=== PATIENT | male | born 1940 | race Caucasian/White ===

== ENCOUNTER 2023-10-16 15:19 | Inpatient (IN) | payer MEDICARE, SELFPAY ==
[2023-10-16] VITALS (14 sets, daily range): BP systolic 131–182; BP diastolic 69–92; PULSE 62–96; RESP 14–25; TEMP 36.1–36.8; O2SAT 95–98; BMI 26.7; BMI 24.3
--- NOTE | 2023-10-16 15:32 | ED.VIS.GI ---
HPI HPI - GI History of Present Illness Chief Complaint: Abd Pain Narrative Narrative: 83-year-old male presents via EMS with abdominal pain and distention that has had over the last 2 hours. He states he feels like he has gas, but is unable to pass it. He denies any nausea or vomiting, no fevers or chills. His daughter is at the bedside who states that ever since his about a year ago, they have noticed that they thought his abdomen was more distended. 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 He became very diaphoretic. EMS was called because of his abdominal pain and bloating. No exacerbating or alleviating factors. PFSH PFS Medical History Mitral valve prolapse Contact with and (suspected) exposure to other viral communicable diseases URI (upper respiratory infection) Home Medications ?Medication ?Instructions ?Recorded ?Last Taken ?Type amoxicillin 875 mg-potassium 1 tab PO Q12H #14 tabs 09/04/23 Unknown Rx clavulanate 125 mg tablet dextromethorphan-guaifenesin 20 5 ml PO Q6H PRN cough #473 mL 09/04/23 Unknown Rx mg-400 mg/5 mL oral liquid Allergy/AdvReac Type Severity Reaction Status Date / Time No Known Allergies Allergy Verified 09/04/23 13:40 Family History Other Cancer Heart disease Surgical History H/O hernia repair Hx of tonsillectomy Social History Smoking Status: Never smoker alcohol intake: never ROS ROS ED ROS Narrative Constitutional: No fever, no chills. HEENT: No sore throat. No neck pain. No loss of vision. No rhinorrhea. Cardiovascular: No chest pain. No palpitations. No pedal edema. Respiratory: No cough, no shortness of breath. Abdominal: Diffuse abdominal pain and distention. No nausea. No vomiting. Genitourinary: No dysuria. No hematuria. Musculoskeletal: No myalgias. No arthralgias. Neurologic: No headaches. No dizziness. No lightheadedness. Skin: No rash. No change in color. Psychiatric: No depression. No anxiety. EXAM Physical Exam Narrative Exam Narrative: Afebrile. Vital signs noted. HEENT: Normocephalic. Atraumatic. PERRL, EOMI. Neck soft and supple. No point tenderness or step off. Cardiovascular: Regular rate and rhythm. No murmurs, rubs, or gallops appreciated. Respiratory: No tachypnea. Lungs clear to auscultation bilaterally. Gastrointestinal: Abdomen soft, nontender, with positive bowel sounds. Mild distention. No rebound or guarding. Neurological: Awake. Alert. Nonfocal, nonlateralizing. Skin: No rash. Normal color. No pallor. Musculoskeletal: No pedal edema. Full range of motion extremities. Const Vital Signs: 10/16/23 15:20 10/16/23 17:20 10/16/23 18:18 Temperature 97.5 F L 97.7 F L Temperature Source Temporal Oral Pulse Rate 62 88 93 Respiratory Rate 14 18 25 H Blood Pressure 152/84 H 159/83 H 173/83 H Blood Pressure Mean 106 108 113 Blood Pressure Source Monitor Blood Pressure Position Semi-Fowlers Pulse Ox 96 98 96 Oxygen Delivery Method Room Air Room Air 10/16/23 18:33 Temperature 97 F L Temperature Source Pulse Rate 90 Respiratory Rate 15 Blood Pressure 182/92 H Blood Pressure Mean 122 Blood Pressure Source Blood Pressure Position Pulse Ox 97 Oxygen Delivery Method MDM MDM MDM Narrative Medical decision making narrative: Differential diagnosis includes but not limited to fecal impaction/constipation versus partial small bowel obstruction versus colonic mass. States he has been having normal bowel movements on a regular basis. His onset was after eating and approximately 2 hours ago today. Comprehensive workup was pursued. I do feel CT imaging is indicated to help rule out obstruction. I will obtain basic laboratory work to rule out dehydration. I reviewed his laboratory work, and he has normal white count of 6.7, hemoglobin 14.9, hematocrit 45.9, platelet count is normal at 321. Electrolyte panel is grossly unremarkable with a normal sodium of 141 potassium 4.1, glucose elevated 127 but normal anion gap of 6. LFTs are grossly unremarkable. Lipase normal at 22. He was administered morphine and ondansetron for analgesia and for nausea. Urinalysis is negative for infection. Of significance is a CT of the abdomen and pelvis. I did receive a call from the radiologist to comments on a small bowel volvulus with distal ileus. There is twisting of the middle third of the small intestines around the superior mesenteric gastric pedicle. I then discussed patient with Dr. Thompson Interiano, who requested an NG tube be placed, and he will take him to the OR emergently. Disposition is admit to the OR in stable condition. History & Record Review Discussion w/independent historian: Patient Lab Data Attestation: I reviewed the patient's lab results. Labs: Laboratory Results - last 24 hr 10/16/23 10/16/23 15:31 16:45 WBC 6.7 RBC 5.01 Hgb 14.9 Hct 45.9 MCV 91.6 MCH 29.7 MCHC 32.5 RDW Std Deviation 45.6 H RDW Coeff of [place] 13.4 Plt Count 321 MPV 8.6 Immature Gran % (Auto) 0.300 Neut % (Auto) 46.3 L Lymph % (Auto) 43.0 H Emanuel % (Auto) 6.8 Eos % (Auto) 2.7 Baso % (Auto) 0.9 Absolute Neuts (auto) 3.1 Absolute Lymphs (auto) 2.90 Nucleated RBC % 0 Sodium 141 Potassium 4.1 Chloride 105 Carbon Dioxide 30.0 Anion Gap 6 BUN 9 Creatinine 0.95 Estim Creat Clear Calc 57.02 Est GFR (MDRD) Af Amer 97 Est GFR (MDRD) Non-Af 80 BUN/Creatinine Ratio 9.4 L Glucose 127 H Calcium 9.3 Total Bilirubin 0.60 AST 24 ALT 25 Alkaline Phosphatase 99 Total Protein 8.1 Albumin 3.7 Globulin 4.4 H Albumin/Globulin Ratio 0.8 L Lipase 22 Urine Color Yellow Urine Clarity Sl. Cloudy Urine pH 8.0 Ur Specific [place] 1.010 Urine Protein 15 H Urine Glucose (UA) Normal Urine Ketones Negative Urine Occult Blood Negative Urine Nitrite Negative Urine Bilirubin Negative Urine Urobilinogen Normal Ur Leukocyte Esterase Negative Urine RBC 0 SEEN Urine WBC 0 SEEN Ur Squamous Epith Cells 0 SEEN Urine Bacteria 0 SEEN Urine Mucus 0 SEEN Radiography Diagnostic Testing: Clinical Impression(s) from Imaging Studies Abdomen/Pelvis CT 10/16/23 16:22 IMPRESSION: Small bowel volvulus 1. Small bowel volvulus is present with abnormal twisting of the middle one third ileum around the superior mesenteric vascular pedicle in the central abdomen which significantly edematous and engorged mesentery, reactive subcentimeter lymphadenopathy, as well as a small reactive amount of ascites. The loops proximal to the focal narrowing/site of volvulus are mildly to moderately fluid distended. A secondary distal ileal ileus is also present with fluid distention. The ileocecal junction is spared. No free air is present. 2. No visualized bowel masses. 3. Mild edema and hyperenhancement of the jejunal loops are present with mild fluid distention due to ileus. 4. No visualized superior mesenteric artery or vein thrombus or complete occlusion, although there is obvious atherosclerotic plaque and some narrowing seen in the superior mesenteric artery. 5. No demonstrated portal venous gas or pneumatosis. Electronically Signed: Que Apodaca MD at 17:40 EDT , ADDENDUM: 10/16/23 [id number] IMPRESSION: Small bowel volvulus 1. Small bowel volvulus is present with abnormal twisting of the middle one third ileum around the superior mesenteric vascular pedicle in the central abdomen which significantly edematous and engorged mesentery, reactive subcentimeter lymphadenopathy, as well as a small reactive amount of ascites. The loops proximal to the focal narrowing/site of volvulus are mildly to moderately fluid distended. A secondary distal ileal ileus is also present with fluid distention. The ileocecal junction is spared. No free air is present. 2. No visualized bowel masses. 3. Mild edema and hyperenhancement of the jejunal loops are present with mild fluid distention due to ileus. 4. No visualized superior mesenteric artery or vein thrombus or complete occlusion, although there is obvious atherosclerotic plaque and some narrowing seen in the superior mesenteric artery. 5. No demonstrated portal venous gas or pneumatosis. N.B. : The above Results were Read Back by Que Apodaca MD to Anoop Pitts MD, and understanding confirmed on 10/16/2023 17:52:49 (ET). Electronically Signed: Que Apodaca MD at 17:40 EDT , Discharge Plan Triage Chief Complaint: Abd Pain ED Provider: Anoop Pitts Dx/Rx/DC Orders Primary Care Provider: Ritchie Corona
[2023-10-16 15:44] LABS: Absolute Neutrophil Count 3.1 X10^3/uL (2.0-7.7); Basophil# 0.06 X10^3/uL; Basophil% 0.9 % (0-1); Eosinophil# 0.18 X10^3/uL; Eosinophils% 2.7 % (0-5); Hematocrit 45.9 % (40-54); Hemoglobin 14.9 g/dL (13.0-16.5); Mean Corp Hgb Conc 32.5 g/dL (32-36); Mean Corpuscular Hgb 29.7 pg (27.0-32.0); Mean Corpuscular Volume 91.6 fL (80-94); Mean Platelet Vol. 8.6 fl (6.2-12.0); Monocyte# 0.46 X10^3/uL; Monocyte% 6.8 % (0-10); NRBC Flagged by Analyzer 0 % (0-5); Neutrophil # 3.12 X10^3/uL (2.7-7.7); Neutrophil % 46.3 % (47-70); Platelet Count 321 K/mm3 (150-450); RBC Distribution Width CV 13.4 % (11.6-14.6); RBC Distribution Width SD 45.6 fl (35.1-43.9); Red Blood Count 5.01 M/mm3 (4.6-6.2); White Blood Count 6.7 K/mm3 (4.4-11.0)
[2023-10-16 15:57] LABS: ALB/GLOB Ratio 0.8 RATIO (0.9-2.4); AST(SGOT) 24 U/L (15-37); Alanine Aminotransfer ALT/SGPT 25 U/L (16-61); Albumin, Serum 3.7 g/dL (3.2-5.0); Alkaline Phosphatase 99 U/L (45-117); Anion Gap 6 (5-15); BUN 9 mg/dL (7-18); BUN/Creat Ratio 9.4 RATIO (10-20); Calcium,Total 9.3 mg/dL (8.5-10.1); Chloride 105 mmol/L (98-107); Creatinine, Serum 0.95 mg/dL (0.70-1.30); EST Glomerular Filtration Rate 80 mL/min (>60); Est Glom Filt Rate - Afr Amer 97 mL/min (>60); Estimated Creatinine Clearance 57.02 ml/min; Globulin 4.4 g/dL (2.2-4.2); Glucose 127 mg/dL (74-106); Lipase 22 U/L (13-75); Potassium 4.1 mmol/L (3.5-5.1); Protein, Total 8.1 g/dL (6.4-8.2); Sodium Level 141 mmol/L (136-145)
[2023-10-16] MEDS: 0.9% Normal Saline (1000mL) 1,000 ML 999 ML IV (16:02)
[2023-10-16] MEDS: Ondansetron 4 MG/2 ML Vial IV (16:02)
[2023-10-16] MEDS: Morphine 4 MG/ML Syringe IV (16:02)
--- NOTE | 2023-10-16 16:22 | CT_ITS ---
We are attempting to reach an attending provider to discuss findings. An addendum with communication details will be sent when the communication is complete. STUDY: CT ABDOMEN AND PELVIS WITH CONTRAST REASON FOR EXAM: Male, 83 years old. RADIATION DOSAGE (If Supplied By Facility): CTDIvol = ( 11.93 ) mGy, DLP = ( 586.96 ) mGycm TECHNIQUE: Transaxial images were obtained from the dome of the diaphragm to the symphysis pubis without oral contrast. ml of 100mL Isovue-300 contrast was administered. Sagittal and coronal images were reconstructed. Individualized dose optimization techniques were used for this CT. COMPARISON: None. 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 Post pneumonic fibrotic scarring is present in the left lower lobe with pleural thickening. Small bowel volvulus is present with abnormal twisting of the middle one third ileum around the superior mesenteric vascular pedicle in the central abdomen which significantly edematous and engorged mesentery, reactive subcentimeter lymphadenopathy, as well as a small reactive amount of ascites. The loops proximal to the focal narrowing/site of volvulus are mildly to moderately fluid distended. A secondary distal ileal ileus is also present with fluid distention. The ileocecal junction is spared. No free air is present. No visualized bowel masses. Mild edema and hyperenhancement of the jejunal loops are present with mild fluid distention due to ileus. No visualized superior mesenteric artery or vein thrombus or complete occlusion, although there is obvious atherosclerotic plaque and some narrowing seen in the superior mesenteric artery. No demonstrated portal venous gas or pneumatosis. Small to moderate-sized left inguinal fat-containing hernia. Mild to moderate enlargement of prostate gland with the apex herniating into the base of the bladder. Diffuse heterogeneity of the prostate gland. Normal liver. Normal gallbladder and extrahepatic biliary system. Normal spleen. Normal pancreas. Normal bilateral adrenal glands. There is mild cortical atrophy of the right kidney, consistent with chronic medical renal disease. Normal left kidney. Normal visualized stomach. Normal colon. The appendix is visualized and appears normal. There is diffuse atherosclerotic calcification of the abdominal aorta, without a demonstrated aneurysm. Normal inferior vena cava. Normal retroperitoneum. Normal urinary bladder. Normal abdominal wall. There are diffuse degenerative changes of the visualized lumbar spine. CT/Abdomen/Pelvis W IV Cont ONLY IMPRESSION: Small bowel volvulus 1. Small bowel volvulus is present with abnormal twisting of the middle one third ileum around the superior mesenteric vascular pedicle in the central abdomen which significantly edematous and engorged mesentery, reactive subcentimeter lymphadenopathy, as well as a small reactive amount of ascites. The loops proximal to the focal narrowing/site of volvulus are mildly to moderately fluid distended. A secondary distal ileal ileus is also present with fluid distention. The ileocecal junction is spared. No free air is present. 2. No visualized bowel masses. 3. Mild edema and hyperenhancement of the jejunal loops are present with mild fluid distention due to ileus. 4. No visualized superior mesenteric artery or vein thrombus or complete occlusion, although there is obvious atherosclerotic plaque and some narrowing seen in the superior mesenteric artery. 5. No demonstrated portal venous gas or pneumatosis. Electronically Signed: Que Apodaca MD at 17:40 EDT ,
[2023-10-16 16:54] LABS: Bacteria 0 SEEN /hpf (None Seen); Mucous, Urine 0 SEEN /hpf (<or=2+); Red Blood Cells-Urine 0 SEEN /hpf (0-5); Squamous Epithelial Cells - UA 0 SEEN /hpf (0-5); White Blood Cells 0 SEEN /hpf (0-5)
[2023-10-16 17:03] LABS: Color, Urine Yellow (Yellow); Glucose, Dipstick Normal (Normal); Ketone-Dipstick Negative (Negative); Leukocyte Esterase-Dipstick Negative /ul (Negative); Nitrite-Dipstick Negative (Negative); Occult Blood-Urine Negative /ul (Negative); Protein-Dipstick 15 mg/dl (Negative); Urine Bilirubin Dipstick Negative (Negative); Urine Clarity Sl. Cloudy (Clear); Urine Urobilinogen Normal (Normal)
--- NOTE | 2023-10-16 17:58 | EKG12_ITS ---
Test Reason : PRE-OP Blood Pressure : / mmHG Vent. Rate : 083 BPM Atrial Rate : 083 BPM P-R Int : 266 ms QRS Dur : 102 ms QT Int : 424 ms P-R-T Axes : 075 -57 068 degrees QTc Int : 498 ms Sinus rhythm with 1st degree A-V block Incomplete right bundle branch block Left anterior fascicular block Cannot rule out Anterior infarct , age undetermined Abnormal ECG Confirmed by ARPIT ANTUNEZ, NORMA ([id number]), rewrite editor CINDI BURDEN ([id number]) on 10/20/2023 8:44:46 AM Referred By: Thompson Interiano Confirmed By:DAYSI MUNSON MD
--- NOTE | 2023-10-16 18:00 | NURSING ---
NO OLD EKGS
--- NOTE | 2023-10-16 18:15 | NURSING ---
DR CONTRERAS IN ROOM
--- NOTE | 2023-10-16 18:27 | NURSING ---
SURGERY BEN SMALL BOWEL VOLVULUS
--- NOTE | 2023-10-16 18:33 | PCM.HP.STD ---
HPI - General HPI Narrative PELON PAREDES, is a 83 M who presents with abdominal pain that started a few hours before presentation. Patient reports that he does not have nausea or vomiting currently. His abdominal pain is in the left side of his abdomen. Patient has never had surgery inside of his abdomen. He has never had a bowel obstruction in the past. [facility] Medical History Mitral valve prolapse Contact with and (suspected) exposure to other viral communicable diseases URI (upper respiratory infection) Home Medications ?Medication ?Instructions ?Recorded ?Last Taken ?Type amoxicillin 875 mg-potassium 1 tab PO Q12H #14 tabs 09/04/23 Unknown Rx clavulanate 125 mg tablet dextromethorphan-guaifenesin 20 5 ml PO Q6H PRN cough #473 mL 09/04/23 Unknown Rx mg-400 mg/5 mL oral liquid Allergy/AdvReac Type Severity Reaction Status Date / Time No Known Allergies Allergy Verified 09/04/23 13:40 Family History Other Cancer Heart disease Surgical History H/O hernia repair Hx of tonsillectomy Social History Smoking Status: Never smoker alcohol intake: never ROS Constitutional Constitutional: Reports anorexia; Denies chills, fatigue or fever(s) Eyes Eyes: Denies blurry vision ENT HEENT: Denies abnormal hearing Cardiovascular Cardiovascular: Denies chest pain Respiratory/Chest Respiratory/Chest: Denies cough or dyspnea Gastrointestinal Gastrointestinal: Reports abdominal pain; Denies nausea or vomiting Genitourinary Genitourinary: Denies change in urinary stream Musculoskeletal Musculoskeletal: Denies abnormal gait Integumentary Integumentary: Denies jaundice or new lesions Neurologic Neurologic: Denies abnormal gait Psychiatric Psychiatric: Denies anxiety Endocrine Endocrinology: Denies flushing Vital Signs Vital Signs Vital Signs: 10/16/23 15:20 10/16/23 17:20 10/16/23 18:18 Temperature 97.5 F L 97.7 F L Temperature Source Temporal Oral Pulse Rate 62 88 93 Respiratory Rate 14 18 25 H Blood Pressure 152/84 H 159/83 H 173/83 H Blood Pressure Mean 106 108 113 Blood Pressure Source Monitor Blood Pressure Position Semi-Fowlers Pulse Ox 96 98 96 Oxygen Delivery Method Room Air Room Air Weight Weight: 170 lb 10.205 oz Body Mass Index (BMI) 26.7 Physical Exam Const oriented x3 and no apparent distress Resp normal respiratory effort Cardio regular rate and regular rhythm GI soft to palpation Inspection: abdominal distention Palpation: tender LUQ and RUQ Extremity normal to inspection Results Lab / Micro Data 10/16/23 15:31 10/16/23 15:31 Labs: Laboratory Results - last 24 hr 10/16/23 15:31: WBC 6.7, RBC 5.01, Hgb 14.9, Hct 45.9, MCV 91.6, MCH 29.7, MCHC 32.5, RDW Std Deviation 45.6 H, RDW Coeff of Chio 13.4, Plt Count 321, MPV 8.6, Immature Gran % (Auto) 0.300, Neut % (Auto) 46.3 L, Lymph % (Auto) 43.0 H, [place] % (Auto) 6.8, Eos % (Auto) 2.7, Baso % (Auto) 0.9, Absolute Neuts (auto) 3.1, Absolute Lymphs (auto) 2.90, Nucleated RBC % 0, Sodium 141, Potassium 4.1, Chloride 105, Carbon Dioxide 30.0, Anion Gap 6, BUN 9, Creatinine 0.95, Estim Creat Clear Calc 57.02, Est GFR (MDRD) Af Amer 97, Est GFR (MDRD) Non-Af 80, BUN/Creatinine Ratio 9.4 L, Glucose 127 H, Calcium 9.3, Total Bilirubin 0.60, AST 24, ALT 25, Alkaline Phosphatase 99, Total Protein 8.1, Albumin 3.7, Globulin 4.4 H, Albumin/Globulin Ratio 0.8 L, Lipase 22 10/16/23 16:45: Urine Color Yellow, Urine Clarity Sl. Cloudy, Urine pH 8.0, Ur Specific [place] 1.010, Urine Protein 15 H, Urine Glucose (UA) Normal, Urine Ketones Negative, Urine Occult Blood Negative, Urine Nitrite Negative, Urine Bilirubin Negative, Urine Urobilinogen Normal, Ur Leukocyte Esterase Negative, Urine RBC 0 SEEN, Urine WBC 0 SEEN, Ur Squamous Epith Cells 0 SEEN, Urine Bacteria 0 SEEN, Urine Mucus 0 SEEN Imaging Radiology Impression Abdomen/Pelvis CT 10/16/23 16:22 IMPRESSION: Small bowel volvulus 1. Small bowel volvulus is present with abnormal twisting of the middle one third ileum around the superior mesenteric vascular pedicle in the central abdomen which significantly edematous and engorged mesentery, reactive subcentimeter lymphadenopathy, as well as a small reactive amount of ascites. The loops proximal to the focal narrowing/site of volvulus are mildly to moderately fluid distended. A secondary distal ileal ileus is also present with fluid distention. The ileocecal junction is spared. No free air is present. 2. No visualized bowel masses. 3. Mild edema and hyperenhancement of the jejunal loops are present with mild fluid distention due to ileus. 4. No visualized superior mesenteric artery or vein thrombus or complete occlusion, although there is obvious atherosclerotic plaque and some narrowing seen in the superior mesenteric artery. 5. No demonstrated portal venous gas or pneumatosis. Electronically Signed: Que Apodaca MD at 17:40 EDT Reading Location ID and State: [facility] / [place] , Service support , ADDENDUM: 10/16/23 [id number] IMPRESSION: Small bowel volvulus 1. Small bowel volvulus is present with abnormal twisting of the middle one third ileum around the superior mesenteric vascular pedicle in the central abdomen which significantly edematous and engorged mesentery, reactive subcentimeter lymphadenopathy, as well as a small reactive amount of ascites. The loops proximal to the focal narrowing/site of volvulus are mildly to moderately fluid distended. A secondary distal ileal ileus is also present with fluid distention. The ileocecal junction is spared. No free air is present. 2. No visualized bowel masses. 3. Mild edema and hyperenhancement of the jejunal loops are present with mild fluid distention due to ileus. 4. No visualized superior mesenteric artery or vein thrombus or complete occlusion, although there is obvious atherosclerotic plaque and some narrowing seen in the superior mesenteric artery. 5. No demonstrated portal venous gas or pneumatosis. N.B. : The above Results were Read Back by Que Apodaca MD to Anoop Pitts MD, and understanding confirmed on 10/16/2023 17:52:49 (ET). Electronically Signed: Que Apodaca MD at 17:40 EDT , Assessment & Plan Assessment/Plan (1) Small bowel volvulus: PLAN: The patient has a small bowel volvulus on CT scan. It appears that the small bowel was wrapped around the SMA. CT scan also reveals small bowel obstruction due to this volvulus. NG has been placed by the emergency room. I discussed taking him for surgery. I discussed exploratory laparoscopy with attempted reduction of volvulus. I also discussed possible bowel resection if there is ischemia. I also discussed converting to open as well. I discussed the risks including but not limited to bleeding, infection, injury to underlying organs such as the bowel or bladder. Patient understands the risks and is willing to proceed. Thompson Interiano MD Pager: [facility] [address] [place] [address], [address] [place] [address] Office:
--- NOTE | 2023-10-16 18:38 | RAD_ITS ---
STUDY: X-RAY -ABDOMEN. REASON FOR EXAM: Male, 83 years old. ng tube placement -- KUB with both diaphragms for NG/OG Verification TECHNIQUE: Single AP view of the abdomen. COMPARISON: CT of abdomen and pelvis dated October 16, 2023 FINDINGS: Collimated view of the chest and upper abdomen only. The pelvis is not included. Normal visualized lung bases. There is an unremarkable bowel gas pattern. The new feeding tube is in the proximal body of the stomach in the left upper quadrant. Normal soft tissue structures. There are diffuse degenerative changes of the visualized lumbar spine. RAD/CXR for Line Placement IMPRESSION: 1. The new feeding tube is in the proximal body of the stomach in the left upper quadrant. Electronically Signed: Que Apodaca MD at 19:48 EDT ,
--- NOTE | 2023-10-16 18:40 | ED.RN ---
NO CONSENT FILLED OUT PER DR CONTRERAS. PT AWARE, PHYSICIAN AWARE
--- NOTE | 2023-10-16 19:27 | PCM.PRE.AN2 ---
ASA Classification* ASA Classification ASA Classification: 2 and E Assessment & Plan Anesthesia* Anesthesia Assessment Anesthesia Assessment: Discussed sedation and/or anesthesia options, risks, benefits, and alternatives with patient/parents/legal guardian/POA. Questions invited. The patient/parents/legal guardian/POA seems to understand and agrees to proceed with anesthesia plan. Reviewed the physical assessment, medical history, allergy history and patient home medications list prior to surgery/procedure/anesthetic and documented any changes. Performed airway and anesthesia risk assessments. Anesthesia Type Anesthesia Type: General (see written pre anesthesia record for full assessment) Anesthesia Focused Assessment* Temperature: 97 F Pulse Rate: 90 Blood Pressure: 159/83 Respiratory Rate: 18 Pulse Ox: 98 Airway Assessment Mouth opens: >3 cm Mallampati Score: II Focused Labs Anesthesia Preop lab: CBC WBC 6.7 K/mm3 (4.4-11.0) 10/16/23 15:31 RBC 5.01 M/mm3 (4.6-6.2) 10/16/23 15:31 Hgb 14.9 g/dL (13.0-16.5) 10/16/23 15:31 Hct 45.9 % (40-54) 10/16/23 15:31 Plt Count 321 K/mm3 (150-450) 10/16/23 15:31 CHEMISTRY Potassium 4.1 mmol/L (3.5-5.1) 10/16/23 15:31 Sodium 141 mmol/L (136-145) 10/16/23 15:31 BUN 9 mg/dL (7-18) 10/16/23 15:31 Creatinine 0.95 mg/dL (0.70-1.30) 10/16/23 15:31 Glucose 127 mg/dL (74-106) H 10/16/23 15:31 COAG Pre-Assessment Diagnosis/Proposed Procedure Planned Operative Procedure(s): exp lap Anesthesia History Anesthesia History - records management specialist: Anesthesia History - records management specialist Hx Hospitalization Any Problems With Anesthesia No 10/16/23 18:18 Cholinesterase deficiency No 10/16/23 18:18 You/Your Family Experience No 10/16/23 18:18 fever (hyperthermia) with Relationship Recent Exposure to Contagious No 10/16/23 18:18 Disease Does patient have nerve No 10/16/23 18:18 stimulator Patient instructed to have No 10/16/23 18:18 device shut off --Does patient have Pacemaker or ICD? When Was Last Pacemaker Check QUESTION #4 FULL TEXT: You/Your Family Experience fever (hyperthermia) with Anesthesia Last Oral Intake Last Oral intake: Last Oral Intake NPO since 14:30 10/16/23 18:18 Meds taken in AM with sips of water? Meds patient instructed to take am of surgery PONV PONV - records management specialist: PONV - records management specialist Female HX of Motion Sickness HX of N/V After Surgery Non-Smoker Duration of Surgery greater than 60 minutes Number of Risk Factors PONV Score Height & Weight Height & Weight: Anesthesia: Height & Weight Height 5 ft 7 in 10/16/23 18:18 Weight: 77.4 kg 10/16/23 18:18 Body Mass Index (BMI) 26.7 10/16/23 18:18 Respiratory Assessment Respiratory Assessment - records management specialist: Respiratory Tract Infection Hx - records management specialist Hx Respiratory Tract Infection No 10/16/23 18:18 STOP Sleep Apnea STOP Sleep Apnea - records management specialist: STOP Sleep Apnea - records management specialist Hx Hypertension No 10/16/23 18:18 Hx Sleep Apnea No 10/16/23 18:18 CPAP BIPAP Do you snore loudly (louder Yes 10/16/23 18:18 than talking or can be heard Do you often feel tired/ No 10/16/23 18:18 fatigued/ sleepy during daytime? Has anyone observed you stop No 10/16/23 18:18 breathing during sleep? STOP Results Negative 10/16/23 18:18 QUESTION #5 FULL TEXT : Do you snore loudly (louder than talking or can be heard through closed doors)? 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 Specify any problems Hx of Preganancy in last 3 Months Nurse Filling Out Transfusion & Questions: Date: Time: Patient unable to answer at this time (ie. confused, unrespo /Reproduction History /Reproductive History - records management specialist: /Reproductive Hx- records management specialist Hx Now No 10/16/23 18:18 Gestational Age (in weeks): EDC: Hx Hx Para Hx Section SAB PFSH Medical History Mitral valve prolapse Contact with and (suspected) exposure to other viral communicable diseases URI (upper respiratory infection) Home Medications ?Medication ?Instructions ?Recorded ?Last Taken ?Type amoxicillin 875 mg-potassium 1 tab PO Q12H #14 tabs 09/04/23 Unknown Rx clavulanate 125 mg tablet dextromethorphan-guaifenesin 20 5 ml PO Q6H PRN cough #473 mL 09/04/23 Unknown Rx mg-400 mg/5 mL oral liquid Allergy/AdvReac Type Severity Reaction Status Date / Time No Known Allergies Allergy Verified 09/04/23 13:40 Family History Other Cancer Heart disease Surgical History H/O hernia repair Hx of tonsillectomy Social History Smoking Status: Never smoker alcohol intake: never Review of Systems (Anesthesia) ROS Narrative System reviewed and no additional complaints, except as documented.
[2023-10-16] MEDS: Bupivacaine 0.25% 30 ML Vial (20:11)
--- NOTE | 2023-10-16 20:27 | PCM.POST.ANE ---
Anesthesia: Postop Eval I Current Vital Signs Temperature: 98.2 F Pulse Rate: 96 Blood Pressure: 138/69 Respiratory Rate: 16 Pulse Ox: 95 Assessment Airway patent: Yes Spontaneous unlabored respirations: Yes nausea: No Vomiting: No Anesthesia Complication: No Fluid Hydration Crystalloid volume administer (ml): 1,000 Total IV fluid infused: 1,000 Progress Note Anesthesia document: Postop Eval 1 completed: Yes
--- NOTE | 2023-10-16 20:29 | PCM.POSTANE2 ---
Anesthesia Postop Eval I Sum Postop Eval Completion status Anesthesia document: Postop Eval 1 completed: Yes Anesthesia Postop Eval I Summary Anesthesia Postop Eval I Summary: Anesthesia Postop Eval I: Assessment Summary Airway patent Yes 10/16/23 20:27 Spontaneous unlabored Yes 10/16/23 20:27 respirations Mental status nausea No 10/16/23 20:27 Vomiting No 10/16/23 20:27 Anesthesia Postop Eval I: Fluid Summary Crystalloid volume administer 1,000 10/16/23 20:27 (ml) Colloids volume administered ( ml) Blood Product volume administered (ml) Total IV fluid infused 1,000 10/16/23 20:27 Anesthesia Postop Eval I: Summary Notes Anesthesia Complication No 10/16/23 20:27 Anesthesia Complication Comment: Post-operative progress note Anesthesia: Postop Eval II Evaluation Mental status: Awake Pain Level: 0 nausea: No Vomiting: No
--- NOTE | 2023-10-16 20:31 | PCM.OPRPT ---
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 A Lambert catheter was placed. The abdomen was prepped and draped in the usual sterile fashion. Midline incision was made superior to the umbilicus and deepened to the fascia which was elevated and incised. 12 mm port was placed into the abdomen is insufflated to 15 mmHg. Camera was placed into the abdomen. The patient was placed in Trendelenburg position and a 5 mm port was placed in the left lower quadrant as well as the suprapubic space. The abdomen was inspected. There appeared to be trace chylous ascites. There was a very small amount of actual ascites but the mesenteric border of the small bowel was all chylous. The cecum was identified and the terminal ileum was then grasped. It was collapsed. It was followed proximally until dilated bowel was found. There was no transition zone or mass or adhesion. I did not find an obvious volvulus. The mesentery appeared edematous and thick. The bowel was run once more from the distal ileum to the ligament of Treitz with no sign of obstruction. The small bowel seem to be draining well with minimal dilation. At this point there was nothing more to do surgically and the abdomen was allowed to desufflate and the ports were removed. The midline fascia was closed with [id number] 0 Vicryl suture. The incisions were injected with local anesthetic and closed with interrupted 4-0 Monocryl sutures. Steri-Strips and bandages were applied. Lambert and NG removed at the end of the case. Patient was taken to PACU in stable condition. Admit VTE Documentation VTE Mechan Device Prophylaxis: SCD's
[2023-10-16] MEDS: Lactated Ringers 1,000 ML 15 ML IV (20:58)
[2023-10-16] MEDS: 0.9% Normal Saline (1000mL) 1,000 ML 100 ML IV (21:51)
[2023-10-16] MEDS: 0.9% Saline Lock 10 ML Syringe IV (22:28)
[2023-10-16] MEDS: Ketorolac 15 MG/ML Vial IV (22:28)
[2023-10-17] MEDS: Acetaminophen 325 MG Tablet 650 MG PO ×2 (00:15→09:53)
[2023-10-17 00:45] VITALS: BP 121/68; PULSE 80; RESP 16; TEMP 36.6; O2SAT 96
[2023-10-17 03:08] VITALS: BP 132/77; PULSE 70; RESP 16; TEMP 36.6; O2SAT 98
--- NOTE | 2023-10-17 05:55 | RAD_ITS ---
STUDY: X-RAY - ABDOMEN/PELVIS REASON FOR EXAM: Male, 83 years old patient with small bowel obstruction (SBO). TECHNIQUE: Two AP supine views of the abdomen and pelvis. COMPARISON: CT of the abdomen and pelvis dated October 16, 2023. FINDINGS: Normal visualized lung bases. There is a large amount of bowel gas visible throughout the small and large bowel. There is no demonstrated free abdominal air. There is no obvious organomegaly, mass, dilated bowel or pathologic calcifications. There is contrast in urinary bladder probably secondary to recent enhanced CT. There are diffuse degenerative changes of the visualized spine. There are degenerative changes of bilateral hips. RAD/Abdomen Single View (Portable) IMPRESSION: Large volume of bowel gas suggests possible ileus. Electronically Signed: Maryjane Olvera MD at 6:07 EDT ,
[2023-10-17 06:08] LABS: Absolute Lymphocyte Count 1.85 X10^3/uL (0.83-4.51); Basophil# 0.03 X10^3/uL; Basophil% 0.4 % (0-1); Eosinophil# 0.07 X10^3/uL; Eosinophils% 0.9 % (0-5); Hematocrit 38.2 % (40-54); Hemoglobin 12.4 g/dL (13.0-16.5); Lymphocyte # 1.85 X10^3/ul (0.83-4.51); Lymphocyte % 23.9 % (19-41); Mean Corp Hgb Conc 32.5 g/dL (32-36); Mean Corpuscular Hgb 30.4 pg (27.0-32.0); Mean Corpuscular Volume 93.6 fL (80-94); Mean Platelet Vol. 8.9 fl (6.2-12.0); Monocyte# 0.79 X10^3/uL; Monocyte% 10.2 % (0-10); NRBC Flagged by Analyzer 0 % (0-5); Neutrophil # 4.97 X10^3/uL (2.7-7.7); Neutrophil % 64.3 % (47-70); Platelet Count 253 K/mm3 (150-450); RBC Distribution Width CV 13.7 % (11.6-14.6); RBC Distribution Width SD 46.8 fl (35.1-43.9); Red Blood Count 4.08 M/mm3 (4.6-6.2); White Blood Count 7.7 K/mm3 (4.4-11.0)
[2023-10-17] MEDS: Ketorolac 15 MG/ML Vial IV (06:21)
[2023-10-17] MEDS: 0.9% Normal Saline (1000mL) 1,000 ML 100 ML IV ×2 (06:21→16:34)
[2023-10-17] MEDS: 0.9% Saline Lock 10 ML Syringe IV (06:22)
[2023-10-17 06:36] VITALS: BP 135/78; PULSE 65; RESP 16; TEMP 36.5; O2SAT 98
--- NOTE | 2023-10-17 07:04 | PCM.PN.SRG ---
Subjective Subjective Patient reports he passed some flatus this morning. He denies nausea or vomiting overnight. He denies the left-sided abdominal pain that he was having before surgery. Objective Data Objective Data Vital Signs: Vital Signs Temp Pulse Resp BP Pulse Ox O2 Del Method 97.7 F L 65 16 135/78 H 98 Room Air 10/17/23 06:36 10/17/23 06:36 10/17/23 06:36 10/17/23 06:36 10/17/23 06:36 10/17/23 06:36 Oxygen Delivery Method Room Air Weight: 155 lb 6.814 oz Body Mass Index (BMI) 24.3 Intake & Output: Intake and Output for Last 24 Hours 10/15/23 10/16/23 10/17/23 23:59 23:59 23:59 Intake Total 1018 / 1018 850 / 850 Output Total 430 / 430 275 / 275 Balance 588 / 588 575 / 575 Lab / Micro Data 10/17/23 05:40 10/16/23 15:31 Labs: Laboratory Results - last 24 hr 10/16/23 15:31: WBC 6.7, RBC 5.01, Hgb 14.9, Hct 45.9, MCV 91.6, MCH 29.7, MCHC 32.5, RDW Std Deviation 45.6 H, RDW Coeff of Chio 13.4, Plt Count 321, MPV 8.6, Immature Gran % (Auto) 0.300, Neut % (Auto) 46.3 L, Lymph % (Auto) 43.0 H, Swisher % (Auto) 6.8, Eos % (Auto) 2.7, Baso % (Auto) 0.9, Absolute Neuts (auto) 3.1, Absolute Lymphs (auto) 2.90, Nucleated RBC % 0, Sodium 141, Potassium 4.1, Chloride 105, Carbon Dioxide 30.0, Anion Gap 6, BUN 9, Creatinine 0.95, Estim Creat Clear Calc 57.02, Est GFR (MDRD) Af Amer 97, Est GFR (MDRD) Non-Af 80, BUN/Creatinine Ratio 9.4 L, Glucose 127 H, Calcium 9.3, Total Bilirubin 0.60, AST 24, ALT 25, Alkaline Phosphatase 99, Total Protein 8.1, Albumin 3.7, Globulin 4.4 H, Albumin/Globulin Ratio 0.8 L, Lipase 22 10/16/23 16:45: Urine Color Yellow, Urine Clarity Sl. Cloudy, Urine pH 8.0, Ur Specific Beecher 1.010, Urine Protein 15 H, Urine Glucose (UA) Normal, Urine Ketones Negative, Urine Occult Blood Negative, Urine Nitrite Negative, Urine Bilirubin Negative, Urine Urobilinogen Normal, Ur Leukocyte Esterase Negative, Urine RBC 0 SEEN, Urine WBC 0 SEEN, Ur Squamous Epith Cells 0 SEEN, Urine Bacteria 0 SEEN, Urine Mucus 0 SEEN 10/17/23 05:40: WBC 7.7, RBC 4.08 L, Hgb 12.4 L, Hct 38.2 L, MCV 93.6, MCH 30.4, MCHC 32.5, RDW Std Deviation 46.8 H, RDW Coeff of Chio 13.7, Plt Count 253, MPV 8.9, Immature Gran % (Auto) 0.300, Neut % (Auto) 64.3, Lymph % (Auto) 23.9, Swisher % (Auto) 10.2 H, Eos % (Auto) 0.9, Baso % (Auto) 0.4, Absolute Neuts (auto) 5.0, Absolute Lymphs (auto) 1.85, Nucleated RBC % 0 Radiography Diagnostic Testing: Radiology Impression Abdomen/Pelvis CT 10/16/23 16:22 IMPRESSION: Small bowel volvulus 1. Small bowel volvulus is present with abnormal twisting of the middle one third ileum around the superior mesenteric vascular pedicle in the central abdomen which significantly edematous and engorged mesentery, reactive subcentimeter lymphadenopathy, as well as a small reactive amount of ascites. The loops proximal to the focal narrowing/site of volvulus are mildly to moderately fluid distended. A secondary distal ileal ileus is also present with fluid distention. The ileocecal junction is spared. No free air is present. 2. No visualized bowel masses. 3. Mild edema and hyperenhancement of the jejunal loops are present with mild fluid distention due to ileus. 4. No visualized superior mesenteric artery or vein thrombus or complete occlusion, although there is obvious atherosclerotic plaque and some narrowing seen in the superior mesenteric artery. 5. No demonstrated portal venous gas or pneumatosis. Electronically Signed: Que Apodaca MD at 17:40 EDT , ADDENDUM: 10/16/23 1759 IMPRESSION: Small bowel volvulus 1. Small bowel volvulus is present with abnormal twisting of the middle one third ileum around the superior mesenteric vascular pedicle in the central abdomen which significantly edematous and engorged mesentery, reactive subcentimeter lymphadenopathy, as well as a small reactive amount of ascites. The loops proximal to the focal narrowing/site of volvulus are mildly to moderately fluid distended. A secondary distal ileal ileus is also present with fluid distention. The ileocecal junction is spared. No free air is present. 2. No visualized bowel masses. 3. Mild edema and hyperenhancement of the jejunal loops are present with mild fluid distention due to ileus. 4. No visualized superior mesenteric artery or vein thrombus or complete occlusion, although there is obvious atherosclerotic plaque and some narrowing seen in the superior mesenteric artery. 5. No demonstrated portal venous gas or pneumatosis. N.B. : The above Results were Read Back by Que Apodaca MD to Anoop Pitts MD, and understanding confirmed on 10/16/2023 17:52:49 (ET). Electronically Signed: Que Apodaca MD at 17:40 EDT Reading Location ID and State: [id number] , Service support , Chest X-Ray 10/16/23 18:38 IMPRESSION: 1. The new feeding tube is in the proximal body of the stomach in the left upper quadrant. Electronically Signed: Que Apodaca MD at 19:48 EDT , KUB X-Ray 10/17/23 05:55 IMPRESSION: Large volume of bowel gas suggests possible ileus. Electronically Signed: Maryjane Olvera MD at 6:07 EDT , Physical Exam Const oriented x3 and no apparent distress Resp normal respiratory effort GI soft to palpation Inspection: abdominal distention Palpation: Negative for tender Extremity normal to inspection Assessment & Plan Assessment/Plan (1) Abdominal pain: PLAN: The patient was taken to surgery yesterday for possible small bowel volvulus. Upon entering the abdomen and expecting the bowel there was no volvulus or any adhesion in the abdomen. There was trace amounts of chylous ascites as well as chylous ascites in the mesenteric portion of the small bowel. Unsure as to the etiology. I will consult oncology for lymphoma workup as there were no palpable or large masses noted on CT or during laparoscopy. Patient had some urinary retention. I we will straight cath this morning and place Lambert as needed. Start Flomax. Continue n.p.o. and IV fluids until he is passing more substantial gas and less distended. KUB this morning shows ileus. Thompson Interiano MD Pager: [facility] [address] [place] [address], [address] [place] [address] Office:
[2023-10-17 07:19] LABS: Anion Gap 5 (5-15); BUN 8 mg/dL (7-18); BUN/Creat Ratio 11.2 RATIO (10-20); Calcium,Total 7.9 mg/dL (8.5-10.1); Chloride 109 mmol/L (98-107); Creatinine, Serum 0.71 mg/dL (0.70-1.30); EST Glomerular Filtration Rate 113 mL/min (>60); Est Glom Filt Rate - Afr Amer 136 mL/min (>60); Estimated Creatinine Clearance 67.71 ml/min; Glucose 98 mg/dL (74-106); Potassium 3.9 mmol/L (3.5-5.1); Sodium Level 139 mmol/L (136-145)
--- NOTE | 2023-10-17 09:33 | CASEMGMT ---
KATE AL Assessment Face to Face with patient for initial transition planning/care coordination assessment. KATE AL introduced self and role at [facility], pt voices understanding. Pt is A&Ox4 and is resting comfortably in bed and is calm. Care providers, pharmacy, and demographics verified. Admitting dx: SBO ROMANE Strata: 1 PCP: Ritchie Corona Specialists: Denies. Preferred Pharmacy: [facility] Insurance: [employer] [facility] Prescription Benefit: Yes LNOK: Stella Chen (JIA), Allyson Velasquez (JIA), Afsaneh Rajput (JIA) Living Arrangements: Pt lives with his daughter Afsaneh in a single story home with 3 steps to enter ADLs/IADLs: Ind Transportation: Self, daughters. Denies concerns. Pt drives [employer] D[employer]: Pt states that he has access to the following DME but does not need to use: [employer], W/C, & [employer]. HHC/SNF: Denies history or needs Pt?s goal: Home Plan: Home no needs. No PT/OT ordered. Pt states that he is ind at home and denies the need for HHC or OP Tx. Pt only concern at this time is urinating. Pt has been needing a straight catheter. If pt were to DC with a Lambert, the pt is aware that nursing will provide education on this prior to departure. Pt states understanding and denies further needs at this time. Roseline Olvera RN, CM
[2023-10-17] MEDS: Tamsulosin HCl 0.4 MG Capsule PO ×2 (09:53→17:57)
[2023-10-17 09:54] VITALS: BP 167/74; PULSE 77; RESP 18; TEMP 36.8; O2SAT 95
[2023-10-17] MEDS: Morphine 2 MG/ML Syringe IV ×2 (12:18→14:35)
[2023-10-17 20:30] VITALS: BP 118/62; PULSE 63; RESP 16; TEMP 36.8; O2SAT 96
[2023-10-18 02:30] VITALS: BP 126/75; PULSE 67; RESP 16; TEMP 36.6; O2SAT 97
[2023-10-18] MEDS: 0.9% Normal Saline (1000mL) 1,000 ML 100 ML IV (02:31)
[2023-10-18] MEDS: Ketorolac 15 MG/ML Vial IV ×2 (02:32→12:56)
--- NOTE | 2023-10-18 06:30 | RAD_ITS ---
STUDY: X-RAY - ABDOMEN/PELVIS REASON FOR EXAM: Male, 83 years old. Pain. Evaluate for ileus. TECHNIQUE: Single AP view of the abdomen / pelvis on 3 images. COMPARISON: October 17, 2023 FINDINGS: Normal visualized lung bases. Slight decompression of gaseous distention of bowel since the prior study. Air is seen to the rectosigmoid. No disproportionate dilatation of bowel. Moderate amount of feces in the colon. The visualized liver, spleen and kidneys are grossly normal in size and morphology. Normal soft tissue structures. Normal visualized osseous structures. RAD/Abdomen Single View (Portable) IMPRESSION: Slight radiographic improvement. No acute abnormality identified. Electronically Signed: Neftali Villeda MD at 8:26 EDT ,
[2023-10-18 07:28] LABS: Absolute Lymphocyte Count 3.16 X10^3/uL (0.83-4.51); Basophil# 0.03 X10^3/uL; Basophil% 0.3 % (0-1); Eosinophil# 0.15 X10^3/uL; Eosinophils% 1.6 % (0-5); Hematocrit 38.8 % (40-54); Hemoglobin 12.4 g/dL (13.0-16.5); Lymphocyte # 3.16 X10^3/ul (0.83-4.51); Lymphocyte % 34.6 % (19-41); Mean Corpuscular Volume 93.7 fL (80-94); Mean Platelet Vol. 8.9 fl (6.2-12.0); Monocyte# 0.77 X10^3/uL; Monocyte% 8.4 % (0-10); NRBC Flagged by Analyzer 0 % (0-5); Neutrophil # 4.99 X10^3/uL (2.7-7.7); Neutrophil % 54.8 % (47-70); Platelet Count 244 K/mm3 (150-450); RBC Distribution Width CV 13.8 % (11.6-14.6); RBC Distribution Width SD 47.2 fl (35.1-43.9); Red Blood Count 4.14 M/mm3 (4.6-6.2); White Blood Count 9.1 K/mm3 (4.4-11.0)
[2023-10-18 07:42] LABS: Anion Gap 4 (5-15); BUN 5 mg/dL (7-18); Calcium,Total 7.9 mg/dL (8.5-10.1); Chloride 112 mmol/L (98-107); Creatinine, Serum 0.63 mg/dL (0.70-1.30); EST Glomerular Filtration Rate 130 mL/min (>60); Est Glom Filt Rate - Afr Amer 158 mL/min (>60); Estimated Creatinine Clearance 67.71 ml/min; Glucose 108 mg/dL (74-106); Potassium 3.6 mmol/L (3.5-5.1); Sodium Level 141 mmol/L (136-145)
--- NOTE | 2023-10-18 07:47 | PCM.PN.SRG ---
Subjective Subjective Patient reports he is comfortable and passing flatus with no nausea or vomiting. He is not having the same abdominal pain as he was before surgery. Objective Data Objective Data Vital Signs: Vital Signs Temp Pulse Resp BP Pulse Ox O2 Del Method 98 F 67 16 126/75 H 97 Room Air 10/18/23 02:30 10/18/23 02:30 10/18/23 02:30 10/18/23 02:30 10/18/23 02:30 10/18/23 02:30 Oxygen Delivery Method Room Air Weight: 155 lb 6.814 oz Body Mass Index (BMI) 24.3 Intake & Output: Intake and Output for Last 24 Hours 10/16/23 10/17/23 10/18/23 23:59 23:59 23:59 Intake Total 1018 / 1018 1860 / 1860 1498.33 / 1498.33 Output Total 430 / 430 1425 / 1675 1100 / 1100 Balance 588 / 588 435 / 185 398.33 / 398.33 Lab / Micro Data 10/18/23 07:00 10/18/23 07:00 Labs: Laboratory Results - last 24 hr 10/18/23 07:00: WBC 9.1, RBC 4.14 L, Hgb 12.4 L, Hct 38.8 L, MCV 93.7, MCH 30.0, MCHC 32.0, RDW Std Deviation 47.2 H, RDW Coeff of Chio 13.8, Plt Count 244, MPV 8.9, Immature Gran % (Auto) 0.300, Neut % (Auto) 54.8, Lymph % (Auto) 34.6, [place] % (Auto) 8.4, Eos % (Auto) 1.6, Baso % (Auto) 0.3, Absolute Neuts (auto) 5.0, Absolute Lymphs (auto) 3.16, Nucleated RBC % 0, Sodium 141, Potassium 3.6, Chloride 112 H, Carbon Dioxide 25.0, Anion Gap 4 L, BUN 5 L, Creatinine 0.63 L, Estim Creat Clear Calc 67.71, Est GFR (MDRD) Af Amer 158, Est GFR (MDRD) Non-Af 130, BUN/Creatinine Ratio 8.0 L, Glucose 108 H, Calcium 7.9 L Physical Exam Const oriented x3 and no apparent distress Resp normal respiratory effort GI soft to palpation and non-tender Inspection: Negative for abdominal distention Assessment & Plan Assessment/Plan (1) Abdominal pain: PLAN: Patient's abdomen is softer and less distended. The patient had a KUB this morning that showed some gaseous distention of the colon but the small bowel appears improved. There is some stool in the right colon. Patient is passing flatus. He tolerated clears. I will advance him to regular diet today. He had urinary retention and had a Lambert placed. I started him on Flomax. I will likely discharge him home with a leg bag and have him follow-up for Lambert removal this week in my office. I discussed the case with oncology and they believe if there is nothing on the CT scan or found in the abdomen that there would be no further workup for lymphoma. CT scan did not reveal any lymphadenopathy. Thompson Interiano MD Pager: [facility] [address] [place] [address], [address] [place] [address] Office:
[2023-10-18 08:35] VITALS: BP 138/68; PULSE 68; RESP 18; TEMP 36.4; O2SAT 93
[2023-10-18 09:05] LABS: Bacteria 0 SEEN /hpf (None Seen); Mucous, Urine 0 SEEN /hpf (<or=2+); Red Blood Cells-Urine 0 SEEN /hpf (0-5); Squamous Epithelial Cells - UA 0 SEEN /hpf (0-5)
[2023-10-18 09:22] LABS: Color, Urine Yellow (Yellow); Glucose, Dipstick Normal (Normal); Ketone-Dipstick Negative (Negative); Leukocyte Esterase-Dipstick 100 /ul (Negative); Nitrite-Dipstick Negative (Negative); Occult Blood-Urine 25 /ul (Negative); Protein-Dipstick 30 mg/dl (Negative); Specific Gravity, Urine 1.015 (1.002-1.030); Urine Bilirubin Dipstick Negative (Negative); Urine Clarity Clear (Clear); Urine Urobilinogen Normal (Normal)
[2023-10-18] MEDS: Bisacodyl 10 MG Suppository RC (10:28)
[2023-10-18 10:48] LABS: White Blood Cells 0-5 SEEN /hpf (0-5)
[2023-10-18] MEDS: Acetaminophen 325 MG Tablet 650 MG PO (11:05)
[2023-10-18] MEDS: 0.9% Saline Lock 10 ML Syringe IV (12:55)
[2023-10-18 14:54] VITALS: BP 133/60; PULSE 79; RESP 16; TEMP 36.7; O2SAT 95
[2023-10-18 14:55] VITALS: PULSE 70
[2023-10-18] MEDS: Tamsulosin HCl 0.4 MG Capsule PO (16:50)
[2023-10-18 20:30] VITALS: BP 164/76; PULSE 75; RESP 16; TEMP 36.8; O2SAT 98
[2023-10-19 02:13] VITALS: BP 151/80; PULSE 78; RESP 16; TEMP 36.6; O2SAT 96
[2023-10-19 08:14] VITALS: BP 150/80; PULSE 74; RESP 18; TEMP 36.6; O2SAT 95
[2023-10-19 08:16] VITALS: PULSE 74; RESP 18; O2SAT 95
--- NOTE | 2023-10-19 09:36 | CT_ITS ---
STUDY: CT ABDOMEN AND PELVIS WITH CONTRAST - URINARY TRACT REASON FOR EXAM: Male, 83 years old. Small bowel obstruction. PO and IV contrast. Exploratory laparoscopy October 16, 2023 RADIATION DOSAGE (If Supplied By Facility): CTDIvol = ( 14.97 ) mGy, DLP = ( 871.70 ) mGycm TECHNIQUE: Oral Gastrografin and 100mL Isovue-370 was administered. Transaxial images were obtained from the dome of the diaphragm to the symphysis pubis subsequent to intravenous and oral contrast administration. Multiplanar coronal and sagittal images were reformatted. The protocol utilizes one or more of the following dose reduction techniques: automated exposure control, adjustment of mA and/or kV according to patient size,and/or use of iterative reconstruction technique. COMPARISON: October 16, 2023 FINDINGS: There are small bilateral pleural effusions associated minimal dependent consolidation within the lower lobes. The visualized portions of the heart are within normal limits. Normal liver. There is mild gallbladder wall thickening. There are dependent high attenuation foci within the gallbladder. Normal spleen. Normal pancreas. There are few intraperitoneal foci of free air. Normal bilateral adrenal glands. Normal visualized stomach. Normal small intestine. Normal colon. The appendix is visualized and appears normal. There is diffuse atherosclerotic calcification of the abdominal aorta, without a demonstrated aneurysm. No retroperitoneal adenopathy. Normal right kidney. Normal left kidney. There is a focus of air within the urinary bladder, likely secondary to recent instrumentation. There is a Lambert catheter within the urinary bladder. There is enlargement of the prostate gland. There is a focus of subcutaneous stranding with a focus of air within the anterior abdominal wall within the upper abdomen that appears postsurgical. There are diffuse degenerative changes of the visualized lumbar spine. CT/Abdomen/Pelvis WITH Contrast IMPRESSION: No small bowel obstruction. Few foci of intraperitoneal air consistent with recent surgical intervention. Mild gallbladder wall thickening associated with gallstones and/or sludge, consider right upper quadrant ultrasound for further evaluation. Small bilateral pleural effusions associated with minimal lower lobe dependent consolidation. Enlarged prostate gland. Atherosclerosis. Electronically Signed: Thuy Stiles MD at 15:53 EDT ,
--- NOTE | 2023-10-19 09:37 | PN.SURG_ITS ---
Subjective Subjective The patient took in a regular diet for dinner yesterday but says he was uncomfortable overnight. He is passing flatus and did have a small bowel movement. He denies nausea or vomiting. Objective Data Objective Data Vital Signs: Vital Signs Temp Pulse Resp BP Pulse Ox O2 Del Method 98 F 74 18 150/80 H 95 Room Air 10/19/23 08:14 10/19/23 08:16 10/19/23 08:16 10/19/23 08:14 10/19/23 08:16 10/19/23 08:16 Oxygen Delivery Method Room Air Weight: 155 lb 6.814 oz Body Mass Index (BMI) 24.3 Intake & Output: Intake and Output for Last 24 Hours 10/17/23 10/18/23 10/19/23 23:59 23:59 23:59 Intake Total 1860 / 1860 2718.33 / 2718.33 Output Total 1425 / 1675 2195 / 2195 1350 / 1350 Balance 435 / 185 523.33 / 523.33 -1350 / -1350 Lab / Micro Data 10/18/23 07:00 10/18/23 07:00 Labs: Laboratory Results - last 24 hr 10/18/23 08:55: Urine Color Yellow, Urine Clarity Clear, Urine pH 6.0, Ur Specific [place] 1.015, Urine Protein 30 H, Urine Glucose (UA) Normal, Urine Ketones Negative, Urine Occult Blood 25 H, Urine Nitrite Negative, Urine Bilirubin Negative, Urine Urobilinogen Normal, Ur Leukocyte Esterase 100 H, Urine RBC 0 SEEN, Urine WBC 0-5 SEEN, Ur Squamous Epith Cells 0 SEEN, Urine Bacteria 0 SEEN, Urine Mucus 0 SEEN Physical Exam Const oriented x3 and no apparent distress Resp normal respiratory effort GI soft to palpation Inspection: abdominal distention Assessment & Plan Assessment/Plan (1) Small bowel volvulus: PLAN: The patient was advanced to regular diet after tolerating clears but he reports he had a rough night with a lot of bloating and feeling full. I am ordering a CT scan with oral and IV contrast to evaluate the small bowel. Thompson Interiano MD Pager: [facility] [address] [place] [address], [address] [place] [address] Office:
[2023-10-19 14:00] VITALS: BP 168/75; PULSE 82; RESP 18; TEMP 36.6; O2SAT 97
[2023-10-19 14:30] VITALS: PULSE 82; RESP 18; O2SAT 97
[2023-10-19] MEDS: Tamsulosin HCl 0.4 MG Capsule PO (17:21)
[2023-10-19 21:00] VITALS: BP 131/65; PULSE 79; RESP 16; TEMP 36.8; O2SAT 97
[2023-10-19] MEDS: Acetaminophen 325 MG Tablet 650 MG PO (21:00)
[2023-10-19] MEDS: Menthol/Lanolin/Calamine/Znox 113 GM Tube 1 APPLIC TOPICAL (21:01)
[2023-10-20 02:20] VITALS: BP 141/58; PULSE 73; RESP 16; TEMP 36.8; O2SAT 99
--- NOTE | 2023-10-20 06:49 | PN.SURG_ITS ---
Subjective Subjective Patient says he is doing better today. He had a bowel movement overnight. Objective Data Objective Data Vital Signs: Vital Signs Temp Pulse Resp BP Pulse Ox O2 Del Method 98.2 F 73 16 141/58 H 99 Room Air 10/20/23 02:20 10/20/23 02:20 10/20/23 02:20 10/20/23 02:20 10/20/23 02:20 10/20/23 02:20 Oxygen Delivery Method Room Air Weight: 155 lb 6.814 oz Body Mass Index (BMI) 24.3 Intake & Output: Intake and Output for Last 24 Hours 10/18/23 10/19/23 10/20/23 23:59 23:59 23:59 Intake Total 2718.33 / 2718.33 400 / 400 Output Total 2195 / 2195 3250 / 3250 250 / 250 Balance 523.33 / 523.33 -2850 / -2850 -250 / -250 Lab / Micro Data 10/18/23 07:00 10/18/23 07:00 Radiography Diagnostic Testing: Radiology Impression Abdomen/Pelvis CT 10/19/23 09:36 IMPRESSION: No small bowel obstruction. Few foci of intraperitoneal air consistent with recent surgical intervention. Mild gallbladder wall thickening associated with gallstones and/or sludge, consider right upper quadrant ultrasound for further evaluation. Small bilateral pleural effusions associated with minimal lower lobe dependent consolidation. Enlarged prostate gland. Atherosclerosis. Electronically Signed: Thuy Stiles MD at 15:53 EDT Reading Location ID and State: [facility] / [place] Tel , Service support , Physical Exam Const oriented x3 and no apparent distress Resp normal respiratory effort Cardio regular rate and regular rhythm GI soft to palpation and non-tender Assessment & Plan Assessment/Plan (1) Small bowel volvulus: PLAN: Patient doing well and tolerating diet. I ordered a CT scan yesterday for bloating which was normal in terms of bowel but there was some possible thickening of the gallbladder. Patient reports he has chronic gallbladder problems. As long as the patient tolerates a diet today I will discharge him home and he will follow-up with me and we will discuss elective cholecystectomy. Thompson Interiano MD Pager: [facility] [address] [place] [address], [address] [place] [address] Office:
[2023-10-20] MEDS: Morphine 2 MG/ML Syringe IV ×2 (07:24→09:17)
[2023-10-20] MEDS: 0.9% Saline Lock 10 ML Syringe IV (07:25)
[2023-10-20 09:07] VITALS: BP 147/86; PULSE 72; RESP 16; TEMP 36.7; O2SAT 94
--- NOTE | 2023-10-20 10:00 | NURSING ---
restrepo removed at 10am 10cc water removed from balloon catheter was intact. Was given morphine per patient request before removing catheter.
--- NOTE | 2023-10-20 12:57 | NURSING ---
Patient voided 125ml and post residual 0. Dr. Interiano in room speaking with patient at this time will be discharging sometime today.
--- NOTE | 2023-10-20 13:02 | PCM.DC.SUM ---
Providers Date of Admission: 10/16/23 Primary Care Physician: Dr. Ritchie Corona MD Reason For Visit: SMALL BOWEL OBSTRUCTION Diagnosis Discharge Diagnosis (1) Small bowel volvulus: Status: Acute Code(s): K56.2 - Volvulus Plan: Patient doing well and tolerating diet. I ordered a CT scan yesterday for bloating which was normal in terms of bowel but there was some possible thickening of the gallbladder. Patient reports he has chronic gallbladder problems. As long as the patient tolerates a diet today I will discharge him home and he will follow-up with me and we will discuss elective cholecystectomy. Thompson Interiano MD Pager: [facility] [address] [place] [address], [address] [place] [address] Office: Medications at Discharge Home Medications acetaminophen 325 mg tablet 650 mg (2 x 325 mg) PO Q4H PRN PRN Pain 1-10 Or Fever #0 tabs 10/20/23 tamsulosin 0.4 mg capsule 0.4 mg PO DAILY@1730 #7 caps 10/20/23 Hospital Course Summary of Care Provided Hospital Course: The patient was admitted with possible small bowel volvulus. He was immediately taken for surgery. What was found was a scant amount of chylous ascites but no obvious volvulus or adhesions or internal hernia. The bowel was run twice and there were no adhesions or which was noted. The patient was taken back to the floor after surgery. He had postoperative ileus and when it this resolved and he started tolerating clears advance him to regular diet. He also had urinary tension requiring a Lambert catheter. Today this was removed and he had a normal voiding trial. He was started on Flomax as well here. Weight / BMI Weight Weight: 155 lb 6.814 oz Body Mass Index (BMI) 24.3 ABG / Lab / Microbiology Data 10/18/23 07:00 10/18/23 07:00 Radiography Diagnostic Testing: Radiology Impression Abdomen/Pelvis CT 10/19/23 09:36 IMPRESSION: No small bowel obstruction. Few foci of intraperitoneal air consistent with recent surgical intervention. Mild gallbladder wall thickening associated with gallstones and/or sludge, consider right upper quadrant ultrasound for further evaluation. Small bilateral pleural effusions associated with minimal lower lobe dependent consolidation. Enlarged prostate gland. Atherosclerosis. Electronically Signed: Thuy Stiles MD at 15:53 EDT , D/C Instructions Discharge Diet: Light diet - advance as tolerated Discharge Activity: May Shower Lifting Restrictions: 20 lbs for 2 weeks Call your doctor if your incision/area has: Continuous Slow Oozing, Sudden Increased Bleeding, Increased Pain/ Swelling, Increased Redness, Foul Smelling Discharge and Swelling at the incision site Call your doctor if you observe: Fever of 101 or Higher and Inability to have a bowel movement Remove Dressing in: 1 day (Remove steri strips in 10 days) Cleanse incision/area with: Soap & Water Please Follow Up With: Thompson Interiano MD When: Please call to schedule 1-2 week follow up appointment. [phone] Meaningful Use Info Meaningful Use Meaningful Use Diagnoses (Choose all that apply): None applicable Ischemic Stroke Statin Dosing Therapy Reference: STATIN DOSE THERAPY REFERENCE: * Patients > 75 years receive moderate or high dose statin therapy. * Patients 75 years or YOUNGER should receive HIGH intensity statin dose unless contraindicated. You will be required to document reason for non-treatment if statin daily dose does not meet guidelines. HIGH DOSE STATIN THERAPY DAILY Atorvastatin > than or = to 40 mg Rosuvastatin > than or = to 20 mg Amlodipine + Atorvastatin > than or = to 2.5/40 mg Ezetimibe + Simvastatin 10/80 mg Simvastatin 80mg Discharge Plan Admission Admit Date/Time: 10/16/23 18:32 Attending Provider: Thompson Interiano Primary Care Provider: Ritchie Corona Discharge Orders/Prescriptions Prescriptions: New acetaminophen 325 mg Tablet 650 mg PO Q4H PRN PRN (Reason: Pain 1-10 Or Fever) Qty: 0 0RF tamsulosin 0.4 mg Capsule 0.4 mg PO DAILY@1730 Qty: 7 0RF Referrals / Follow Up: Ritchie Corona MD [Primary Care Provider] - Disposition Disposition (needs filled in before D/C Order can be placed): Home, Self Care
--- NOTE | 2023-10-20 15:41 | PHA.DC.MR.R ---
[facility] Service has performed discharge medication reconciliation for this patient. Medication education papers prepared, patient discharged before I was able to college and career counselor. Medications reviewed. The patient's discharge medication list was reviewed for discrepancies and discrepancies were resolved. Medications at Discharge Home Medications acetaminophen 325 mg tablet 650 mg (2 x 325 mg) PO Q4H PRN PRN Pain 1-10 Or Fever #0 tabs 10/20/23 tamsulosin 0.4 mg capsule 0.4 mg PO DAILY@1730 #7 caps 10/20/23
== END 2023-10-20 14:37 | disposition home or self-care (01) | DRG 803 ==
LOC: ED 15:49 → SDC 18:10 → AC 18:12 → SDC 20:45 → MS3 20:45
PROVIDERS: Admitting Provider Surgery; Emergency Provider Emergency Medicine; PCP Internal Medicine Infectious Disease; Referring Provider Surgery; Visit Provider Surgery
PROC: 0WJG4ZZ Inspection of Peritoneal Cavity, Percutaneous Endoscopic Approach (ICD-10-PCS; CPT 44202; principal; 2023-10-16 19:00)
DX: I89.8 Other specified noninfective disorders of lymphatic vessels and lymph nodes (principal); K56.7 Ileus, unspecified; K82.8 Other specified diseases of gallbladder; R33.9 Retention of urine, unspecified
CPT/HCPCS: 36415; 71045; 74018; 74177; 80048; 80053; 81001; 83690; 85025; 93005; 94668; 97802; 99283; J7030; J7120; Q9967; A4216; J2405

== ENCOUNTER 2024-01-25 17:34 | Emergency (ER) | payer MEDICARE, SELFPAY ==
[2024-01-25 17:36] VITALS: BP 116/95; PULSE 90; RESP 18; TEMP 36.8; O2SAT 97
[2024-01-25 17:38] VITALS: BMI 24.3
--- NOTE | 2024-01-25 18:13 | EKG12_ITS ---
Test Reason : DYSRHYTHMIA Blood Pressure : */* mmHG Vent. Rate : 89 BPM Atrial Rate : 89 BPM P-R Int : 224 ms QRS Dur : 104 ms QT Int : 388 ms P-R-T Axes : 81 -54 71 degrees QTcB Int : 472 ms Sinus rhythm with 1st degree A-V block Possible Left atrial enlargement Incomplete right bundle branch block Left anterior fascicular block Abnormal ECG Confirmed by ABBI WHEELER MD ([id number]), editor trade journal CINDI BURDEN ([id number]) on 01/26/2024 9:53:21 AM Referred By: Confirmed By: ABBI WHEELER MD
--- NOTE | 2024-01-25 18:14 | CT_ITS ---
STUDY: CT ABDOMEN AND PELVIS WITH CONTRAST REASON FOR EXAM: Male, 83 years old. left sdied abd pain, bloating RADIATION DOSAGE (If Supplied By Facility): CTDIvol = ( 13.63 ) mGy, DLP = ( 715.91 ) mGycm TECHNIQUE: Transaxial images were obtained from the dome of the diaphragm to the symphysis pubis without oral contrast. IV 100mL Isovue-370 was administered. Sagittal and coronal images were reconstructed. Individualized dose optimization techniques were used for this CT. COMPARISON: None. FINDINGS: Small left pleural effusion and compressive atelectasis in left lower lobe. Minor atelectasis within the dependent portion of the right lung. The heart size is normal. There is mild coronary artery calcification There is mild biliary sludge or possibly tiny poorly calcified stones in gallbladder without evidence for pericholecystic edema . Normal spleen. Normal pancreas. Normal bilateral adrenal glands. Normal right kidney. Normal left kidney. Normal visualized stomach. Within the left mid abdomen and lower abdomen in the midline there are multiple loops of small bowel demonstrating thickening of the folds consistent with nonspecific enteritis.. Normal colon. The appendix is visualized and appears normal. Atherosclerotic change of the aorta without evidence for aneurysm. Normal inferior vena cava. Normal retroperitoneum. Normal urinary bladder. Nonspecific enlargement of prostate Large fat-containing left inguinal hernia. Lumbar spine demonstrates degenerative changes CT/Abdomen/Pelvis W IV Cont ONLY IMPRESSION: Mild biliary sludge or tiny poorly calcified stones without evidence for acute inflammation Findings which may be consistent with nonspecific enteritis. No definitive evidence for small bowel obstruction or other acute abnormality. Electronically Signed: Ez Paula MD at 19:19 EST Reading Location ID and State: [facility] / [place] Tel , Service support ,
--- NOTE | 2024-01-25 18:15 | EX.ED.DYSGE1 ---
HPI History of Present Illness Chief Complaint: General Illness Informant: patient Narrative Narrative: Patient is 83-year-old male with history of gallstones, mitral valve prolapse and and exploratory laparoscopy for concern of small bowel volvulus which had spontaneously resolved presenting with left-sided abdominal and chest discomfort. Patient states that symptoms are about 2 days ago. States initially he thought he maybe had some pleurisy and had some left-sided pain with breathing. He tried wrapping his ribs and taking ibuprofen which helped. He notes that he ran out of ibuprofen and took his last dose at 1130 last night. The pain has been worse today. He notes sometimes when he burps his pain goes to his left shoulder. He also has been having a decreased appetite and has been feeling bloated and gassy. He had 2 bowel movements today most recently 4 hours ago. He denies any black or blood in his stool. He states he just does not feel right and is having chills. He generally feels weak. Denies any chest pain, fevers, URI symptoms or significant cough. States that when he has volvulus that is much more painful. Denies any urinary symptoms. No other complaints or concerns reported at this time [facility] Medical History Mitral valve prolapse Contact with and (suspected) exposure to other viral communicable diseases URI (upper respiratory infection) Home Medications ?Medication ?Instructions ?Recorded ?Last Taken ?Type acetaminophen 325 mg tablet 650 mg (2 x 325 mg) PO Q4H PRN PRN 10/20/23 Unknown Rx Pain 1-10 Or Fever #0 tabs tamsulosin 0.4 mg capsule 0.4 mg PO DAILY@1730 #7 caps 10/20/23 Unknown Rx doxycycline hyclate 100 mg tablet 100 mg PO DAILY #14 tabs 01/25/24 Unknown Rx Allergy/AdvReac Type Severity Reaction Status Date / Time No Known Allergies Allergy Verified 01/25/24 17:35 Family History Other Cancer Heart disease Surgical History History of exploratory laparotomy H/O hernia repair Hx of tonsillectomy Social History Smoking Status: Never smoker alcohol intake: never ROS ROS ED Constitutional Constitutional ED: Reports chills; Denies fever(s) Cardiovascular Cardiovascular: Denies chest pain or palpitations Respiratory/Chest Respiratory/Chest: Reports other Details: Reports mild intermittent left-sided pleuritic chest pain ; Denies cough or dyspnea Gastrointestinal Gastrointestinal: Reports abdominal pain and nausea; Denies constipation, diarrhea or vomiting Genitourinary Genitourinary ED: Denies dysuria or hematuria Musculoskeletal Musculoskeletal: Denies arthralgias or myalgias Integumentary Denies rash Neurologic Neurologic: Reports weakness; Denies headache(s) Hematologic/Lymphatic Hematologic/Lymphatic: Denies easy bleeding or easy bruising EXAM Physical Exam Const Vital Signs: 01/25/24 17:36 01/25/24 17:45 01/25/24 19:35 Temperature 98.3 F 98.1 F Temperature Source Oral Oral Pulse Rate 90 89 Respiratory Rate 18 22 H Respiratory Effort Normal Non-Labored Respiratory Pattern Normal Blood Pressure 116/95 H 168/75 H Blood Pressure Mean 102 106 Pulse Ox 97 97 Oxygen Delivery Method Room Air Room Air 01/25/24 21:03 Temperature 98.1 F Temperature Source Pulse Rate 82 Respiratory Rate 18 Respiratory Effort Respiratory Pattern Blood Pressure 152/74 H Blood Pressure Mean 100 Pulse Ox 95 Oxygen Delivery Method Positive well nourished and well developed General Appearance ED: well developed and NAD HEENT Reports moist mucous membranes Eyes PERRL Neck supple and no JVD Chest Wall inspection of chest normal Resp normal respiratory effort and clear to auscultation bilaterally Cardio regular rate and regular rhythm Cardio Narrative: Murmur present GI GI Narrative: Mildly distended abdomen. No fluid wave appreciated. Abdomen soft. No mass appreciated. No significant tenderness or guarding present. Auscultation: normoactive bowel sounds Palpation: Negative for tender, guarding or rebound tenderness present Back/Spine no CVA tenderness Extremity normal to inspection Neuro oriented x3 Sensorium / Orientation: alert Motor Exam: Negative for general weakness Psych mental status grossly normal Skin no rashes or lesions noted and no wounds MDM MDM MDM Narrative Medical decision making narrative: Patient is evaluated for pleuritic left-sided chest pain as well as abdominal discomfort and nausea. He also reports decreased appetite, bloating and generalized chills/weakness. Has a significant abdominal history including exploratory laparotomy for small bowel volvulus. Differential includes pneumonia, pleural effusion, small bowel obstruction, volvulus, ACS, pancreatitis, cholecystitis and colitis. EKG does not show any acute ischemia. CBC normal with no leukocytosis. BMP largely normal as well as liver panel. Lipase is normal. Urinalysis is not consistent with dehydration or infection. Two-view chest x-ray viewed by myself as well as radiology does show small left pleural effusion and mild left lower lobe atelectasis or infiltrate. CT of the abdomen pelvis shows small amount of sludge without findings of acute inflammation of the biliary tract and findings reference assistant with a nonspecific enteritis. Given the patient is reporting chills, pain with his pleural fusions and acute symptoms we will treat this as a pneumonia. He is given first dose of doxycycline in the emergency room. Is given Toradol and Lidoderm patch for his pain in the emergency room. Given return precautions. Patient verbalized agreement or stands plan. Patient overall is well-appearing and 95 9 7% on room air and I do not think requires hospitalization for symptoms at this time. Lab Data Attestation: I reviewed the patient's lab results. Labs: Laboratory Results - last 24 hr 01/25/24 01/25/24 17:49 19:30 WBC 8.9 RBC 4.72 Hgb 14.4 Hct 43.2 MCV 91.5 MCH 30.5 MCHC 33.3 RDW Std Deviation 43.8 RDW Coeff of [place] 13.0 Plt Count 333 MPV 8.8 Immature Gran % (Auto) 0.300 Neut % (Auto) 55.7 Lymph % (Auto) 32.2 [place] % (Auto) 10.4 H Eos % (Auto) 1.1 Baso % (Auto) 0.3 Absolute Neuts (auto) 4.9 Absolute Lymphs (auto) 2.86 Nucleated RBC % 0 Sodium 135 L Potassium 3.7 Chloride 102 Carbon Dioxide 27.0 Anion Gap 6 BUN 9 Creatinine 0.67 L Estim Creat Clear Calc 67.71 Est GFR (MDRD) Af Amer 146 Est GFR (MDRD) Non-Af 120 BUN/Creatinine Ratio 13.4 Glucose 86 Calcium 8.8 Total Bilirubin 0.60 AST 22 ALT 21 Alkaline Phosphatase 105 Total Protein 7.8 Albumin 3.2 Globulin 4.6 H Albumin/Globulin Ratio 0.7 L Lipase 26 Urine Color Yellow Urine Clarity Sl. Cloudy Urine pH 6.0 Ur Specific [place] 1.010 Urine Protein Negative Urine Glucose (UA) Normal Urine Ketones 50 H Urine Occult Blood Negative Urine Nitrite Negative Urine Bilirubin Negative Urine Urobilinogen Normal Ur Leukocyte Esterase Negative Urine RBC 0-5 SEEN Urine WBC 0-5 SEEN Ur Squamous Epith Cells 0-5 SEEN Urine Bacteria 0 SEEN Urine Mucus 0 SEEN Radiography Diagnostic Testing: Clinical Impression(s) from Imaging Studies Abdomen/Pelvis CT 01/25/24 18:14 IMPRESSION: Mild biliary sludge or tiny poorly calcified stones without evidence for acute inflammation Findings which may be consistent with nonspecific enteritis. No definitive evidence for small bowel obstruction or other acute abnormality. Electronically Signed: Ez Paula MD at 19:19 EST , Chest X-Ray 01/25/24 19:00 IMPRESSION: Small left pleural effusion and mild left lower lobe atelectasis or infiltrate. Electronically Signed: Ez Paula MD at 20:10 EST , Rhythm Strip Rhythm Strip: Sinus Rhythm Rate: 89 Ectopy: None EKG Initial EKG: Attestation: I personally reviewed and interpreted this EKG as follows: Interpretation: Sinus Rhythm Comments: Normal sinus rhythm rate of 89 beats per minutes First AV block HI interval 224 Incomplete right bundle branch block Left anterior fascicular block Normal ST segments No change compared to prior EKG on 10/16/2023 Discharge Plan Triage Chief Complaint: General Illness ED Provider: Nathalie Hernandez Dx/Rx/DC Orders Clinical Impression: Pleural effusion on left, LLL pneumonia Instructions: ED Pleural Effusion, ED Pneumonia (Adult) Prescriptions: New doxycycline hyclate 100 mg tablet 100 mg PO DAILY Qty: 14 0RF No Action acetaminophen 325 mg Tablet 650 mg PO Q4H PRN PRN (Reason: Pain 1-10 Or Fever) Qty: 0 0RF tamsulosin 0.4 mg Capsule 0.4 mg PO DAILY@1730 Qty: 7 0RF Primary Care Provider: Ritchie Corona Referrals: Ritchie Corona MD [Primary Care Provider] - Activity Restrictions/Additional Instructions: Please follow-up with your primary care doctor and 2 to 3 days for repeat evaluation. Your chest x-ray showed small lung of fluid around the left side of your lung consistent with your pleurisy. I suspect there is pneumonia given your associated chills generalized malaise. CT of abdomen otherwise showed findings of inflammation of your stomach consistent with enteritis (diarrheal illness). Make sure you are drinking plenty of fluids. Alternate ibuprofen and Tylenol as needed for pain. You may also use [id number] extra strength Salonpas Lidoderm patches to help with the pain. You were given 1 in the ER today. If you feel your breathing is worsening or having worsening symptoms please return to the emergency room Print Language: Amharic Disposition Disposition: Home, Self Care Discharge Date/Time: 01/25/24 21:04
[2024-01-25 18:23] LABS: Absolute Lymphocyte Count 2.86 X10^3/uL (0.83-4.51); Absolute Neutrophil Count 4.9 X10^3/uL (2.0-7.7); Basophil# 0.03 X10^3/uL; Basophil% 0.3 % (0-1); Eosinophils% 1.1 % (0-5); Hematocrit 43.2 % (40-54); Hemoglobin 14.4 g/dL (13.0-16.5); Lymphocyte # 2.86 X10^3/ul (0.83-4.51); Lymphocyte % 32.2 % (19-41); Mean Corp Hgb Conc 33.3 g/dL (32-36); Mean Corpuscular Hgb 30.5 pg (27.0-32.0); Mean Corpuscular Volume 91.5 fL (80-94); Mean Platelet Vol. 8.8 fl (6.2-12.0); Monocyte# 0.92 X10^3/uL; Monocyte% 10.4 % (0-10); NRBC Flagged by Analyzer 0 % (0-5); Neutrophil # 4.93 X10^3/uL (2.7-7.7); Neutrophil % 55.7 % (47-70); Platelet Count 333 K/mm3 (150-450); RBC Distribution Width SD 43.8 fl (35.1-43.9); Red Blood Count 4.72 M/mm3 (4.6-6.2); White Blood Count 8.9 K/mm3 (4.4-11.0)
[2024-01-25 18:46] LABS: ALB/GLOB Ratio 0.7 RATIO (0.9-2.4); AST(SGOT) 22 U/L (15-37); Alanine Aminotransfer ALT/SGPT 21 U/L (16-61); Albumin, Serum 3.2 g/dL (3.2-5.0); Alkaline Phosphatase 105 U/L (45-117); Anion Gap 6 (5-15); BUN 9 mg/dL (7-18); BUN/Creat Ratio 13.4 RATIO (10-20); Calcium,Total 8.8 mg/dL (8.5-10.1); Chloride 102 mmol/L (98-107); Creatinine, Serum 0.67 mg/dL (0.70-1.30); EST Glomerular Filtration Rate 120 mL/min (>60); Est Glom Filt Rate - Afr Amer 146 mL/min (>60); Estimated Creatinine Clearance 67.71 ml/min; Globulin 4.6 g/dL (2.2-4.2); Glucose 86 mg/dL (74-106); Lipase 26 U/L (13-75); Potassium 3.7 mmol/L (3.5-5.1); Protein, Total 7.8 g/dL (6.4-8.2); Sodium Level 135 mmol/L (136-145)
--- NOTE | 2024-01-25 19:00 | RAD_ITS ---
STUDY: X-RAY CHEST REASON FOR EXAM: Male, 83 years old. left sided pain TECHNIQUE: PA and lateral COMPARISON: None. FINDINGS: Small left pleural effusion and left lower lobe atelectasis or infiltrate in . Normal size heart. Normal mediastinum and karla. Normal visualized pulmonary arteries. Mildly calcified aortic arch and descending thoracic aorta. Dorsal spine demonstrates degenerative change Normal visualized ribs, clavicles, and shoulders. There is no demonstrated abnormality of the visualized soft tissue structures of the upper abdomen. RAD/Chest PA and Lateral IMPRESSION: Small left pleural effusion and mild left lower lobe atelectasis or infiltrate. Electronically Signed: Ez Paula MD at 20:10 EST ,
[2024-01-25 19:34] LABS: Bacteria 0 SEEN /hpf (None Seen); Mucous, Urine 0 SEEN /hpf (<or=2+)
[2024-01-25 19:35] VITALS: BP 168/75; PULSE 89; RESP 22; TEMP 36.7; O2SAT 97
[2024-01-25] MEDS: Ketorolac 15 MG/ML Vial IV (19:42)
[2024-01-25 19:54] LABS: Color, Urine Yellow (Yellow); Glucose, Dipstick Normal (Normal); Ketone-Dipstick 50 mg/dl (Negative); Leukocyte Esterase-Dipstick Negative /ul (Negative); Nitrite-Dipstick Negative (Negative); Occult Blood-Urine Negative /ul (Negative); Protein-Dipstick Negative (Negative); Urine Bilirubin Dipstick Negative (Negative); Urine Clarity Sl. Cloudy (Clear); Urine Urobilinogen Normal (Normal)
[2024-01-25 20:33] LABS: Red Blood Cells-Urine 0-5 SEEN /hpf (0-5); Squamous Epithelial Cells - UA 0-5 SEEN /hpf (0-5); White Blood Cells 0-5 SEEN /hpf (0-5)
[2024-01-25] MEDS: Doxycycline 100 MG CAPSULE PO (20:55)
[2024-01-25] MEDS: Lidocaine 5% Patch 1 PATCH TOPICAL (20:55)
[2024-01-25 21:03] VITALS: BP 152/74; PULSE 82; RESP 18; TEMP 36.7; O2SAT 95
== END 2024-01-25 21:04 | disposition home or self-care (01) ==
PROVIDERS: Emergency Provider Emergency Medicine; PCP Internal Medicine Infectious Disease; Visit Provider Emergency Medicine
DX: J18.9 Pneumonia, unspecified organism (principal); J90 Pleural effusion, not elsewhere classified; R10.9 Unspecified abdominal pain; Z79.899 Other long term (current) drug therapy
CPT/HCPCS: 71046; 74177; 80053; 81001; 83690; 85025; 93005; 96374; 99282; Q9967; A4216

== ENCOUNTER 2025-02-17 18:55 | Emergency (ER) | payer OTHER, SELFPAY ==
[2025-02-17 18:56] VITALS: BP 146/80; PULSE 75; RESP 16; TEMP 36.6; O2SAT 96; BMI 25.4
--- NOTE | 2025-02-17 19:32 | CT_ITS ---
PROCEDURE: ABDOMEN/PELVIS WITHOUT CONT 02/17/2025 REASON FOR EXAM: ABD BLOATING/DISTENSION TECHNIQUE: Procedure Code: [id number] Modality: CT Procedure: ABDOMEN/PELVIS WITHOUT CONT Noncontrast technique limits evaluation of the abdominal and pelvic viscera. Coronal and Sagittal reconstruction series were provided. One or more dose reduction techniques were used (e.g., Automated exposure control, adjustment of the mA and/or kV according to patient size, use of iterative reconstruction technique). RADIATION DOSE SUMMARY: CTDlvol: 7.19 mGy DLP: 348.42 mGycm COMPARISON: CT Abdomen and Pelvis w/Contrast, 01/25/2024 FINDINGS: LUNG BASES: No pleural effusion. Minimal atelectasis bilaterally. Coronary artery calcification. LIVER: Unremarkable. GALLBLADDER: Biliary sludge and/or small calcified gallstones again seen. No wall thickening or pericholecystic inflammation. BILE DUCTS: No ductal dilation. PANCREAS: Unremarkable. SPLEEN: Unremarkable. ADRENAL GLANDS: Unremarkable. KIDNEYS/URETERS Subtle increased attenuation of the renal pyramids bilaterally. No ureteral or bladder calculi. No hydronephrosis or hydroureter. STOMACH AND BOWEL: No obstruction or perforation. No wall thickening. No CT evidence of colitis or acute diverticulitis. APPENDIX: Normal-appearing appendix. No CT evidence for appendicitis. RETRO/PERITONEUM: No free fluid. No free air. LYMPH NODES: No lymphadenopathy. PELVIC ORGANS: Prostatic enlargement, indenting on the base of the urinary bladder. The urinary bladder otherwise appears normal. VASCULATURE: No aortic aneurysm. Scattered calcified atherosclerosis. ABDOMINAL WALL AND SOFT TISSUES: Small fat-containing left inguinal hernia. BONES: No fracture or suspicious osseous abnormality. Degenerative changes of the spine. CT/Abdomen/Pelvis without Cont IMPRESSION: 1. Subtle hyperdensity of the renal pyramids bilaterally. This can be a elvira l finding or could represent early findings of medullary nephrocalcinosis. Clinical correlation with close clinical follow-up and as needed imaging is suggested. 2. Gallbladder sludge and/or gallstones without signs of acute cholecystitis. 3. Prostatomegaly. Reading Location: [id number]
--- NOTE | 2025-02-17 19:32 | EKG12_ITS ---
Test Reason : DYSRHYTHMIA Blood Pressure : */* mmHG Vent. Rate : 81 BPM Atrial Rate : 81 BPM P-R Int : 266 ms QRS Dur : 94 ms QT Int : 392 ms P-R-T Axes : 87 -54 70 degrees QTcB Int : 455 ms Sinus rhythm with 1st degree A-V block with frequent Premature ventricular complexes in a pattern of bigeminy Possible Left atrial enlargement Incomplete right bundle branch block Left anterior fascicular block Possible Anteroseptal infarct , age undetermined Abnormal ECG Confirmed by ARPIT ANTUNEZ, NORMA ([id number]), television news video editor CINDI BURDEN ([id number]) on 02/21/2025 6:32:03 AM Referred By: ER Confirmed By: NORMA MUNSON MD
--- NOTE | 2025-02-17 19:35 | EDS_ITS ---
HPI History of Present Illness Chief Complaint: Palpitations Narrative Narrative: Patient is a 84-year-old male presenting to the emergency department for palpitations for the past 4 days. Patient has a past medical history of mitral valve prolapse, hypertension, heart disease. Patient states that for the past 4 days he has felt like his heart is flip-flopping. States this has not happened before. He endorses some mild shortness of breath and generalized fatigue. Denies any fever, chills, cough, chest pain, abdominal pain, nausea, vomiting. He denies any lower extremity edema. Denies any recent alcohol, drug use, new medications or excessive caffeine use. He reports abdominal bloating but no pain. [facility] Medical History Mitral valve prolapse Contact with and (suspected) exposure to other viral communicable diseases URI (upper respiratory infection) Home Medications ?Medication ?Instructions ?Recorded ?Last Taken ?Type acetaminophen 325 mg tablet 650 mg (2 x 325 mg) PO Q4H PRN PRN 10/20/23 Unknown Rx Pain 1-10 Or Fever #0 tabs tamsulosin 0.4 mg capsule 0.4 mg PO DAILY@1730 #7 caps 10/20/23 Unknown Rx azithromycin 250 mg tablet See Rx Instructions PO .COM PLEX #6 02/16/24 Unknown Rx (Zithromax Z-Baljit) tabs methylprednisolone 4 mg tablets in See Rx Instructions PO PER PKG DIR 02/16/24 Unknown Rx a dose pack #21 tabs Allergy/AdvReac Type Severity Reaction Status Date / Time No Known Allergies Allergy Verified 02/17/25 19:00 Family History Other Cancer Heart disease Surgical History History of exploratory laparotomy H/O hernia repair Hx of tonsillectomy Social History Smoking Status: Never smoker alcohol intake: never ROS ROS ED ROS Narrative see HPI EXAM Physical Exam Narrative Exam Narrative: Vital signs: Reviewed General: Alert and oriented x 3. No acute distress. Well-appearing, nontoxic. HEENT: Head is normocephalic and atraumatic, sinuses nontender, pupils equal round and reactive. Nares are patent. Oropharynx and throat exams normal. Neck: Supple without lymphadenopathy nontender Cardiovascular: Regular rate and rhythm, no murmurs. No rubs or gallops. Normal S1 and S2 Respiratory: Clear to auscultation bilaterally. No wheezes, rales, rhonchi Abdominal: Soft and protuberant. Normal bowel sounds. No guarding or rebound. Nonsurgical abdomen Extremities: No tenderness. No bruising. Normal range of motion. Normal sensation. Skin: No rash or redness. Neurological: Cranial nerves II through XII are grossly intact. Normal strength and sensation. Normal cerebellar function The rest of the physical exam is unremarkable Const Vital Signs: 02/17/25 18:56 02/17/25 20:13 02/17/25 21:00 Temperature 98 F Temperature Source Oral Pulse Rate 75 71 66 Respiratory Rate 16 11 L 18 Blood Pressure 146/80 H 140/77 H 144/91 H Blood Pressure Mean 102 98 108 Pulse Ox 96 96 97 Oxygen Delivery Method Room Air Room Air MDM MDM MDM Narrative Medical decision making narrative: Patient is a 84-year-old male presenting to the emergency department for palpita tions for 4 days. Patient was seen and examined. Vitals are stable. Patient resting in bed comfortably no acute distress. Differential includes but is not limited to: ACS, cardiac dysrhythmia, pne umonia, electrolyte imbalance EKG shows bigeminy. Very poor baseline however no evidence of STEMI. CBC with no leukocytosis and normal hemoglobin. CMP with no significant abnormalities. TSH and magnesium within normal limits. Troponin and reflex are stable with no significant delta change. BNP within normal limits. Chest x-ray reviewed by myself, no opacities, pneumothorax or widened mediastinum. Radiology read in agreement. CT of abdomen pelvis shows subtle hyperdensity of the renal pyramids bilaterally. This can be a normal finding or could represent early findings of medullary nephrocalcinosis. Clinical correlation with close clinical follow-up and as needed imaging is suggested. Gallbladder sludge and/or gallstones without signs of acute cholecystitis. Prostatomegaly. Patient updated on the incidental findings on the CT and the negative lab work. Repeat EKG now shows sinus rhythm with a sinus arrhythmia and first-degree AV block with a MN interval of 276. Prolonged QTc of 4 4. No evidence of bigeminy. patient is no longer feeling the palpitations. I had an extensive discussion with the patient and daughter at bedside about the heart rhythm pattern and recommended cardiology follow-up which was given. I do not think this is secondary to ischemic heart disease given the normal troponin and think he is stable for outpatient management. Attempted to order a Holter monitor here in the emergency department but there was none available at this time. Also recommended nonurgent follow-up with urology for the incidental kidney findings. All questions answered. Patient discharged from the Emergency Department. I do not feel that the patient's evaluation reveals any acute reason for admission at this time. I instructed them to either follow-up with their primary care physician or promptly return to the Emergency Department for reevaluation should symptoms worsen or new symptoms develop. I explained what symptoms would indicate the need to return to the em ergency department. Shared decision making was used. The patient voiced understanding of the treatment plan and is agreeable with it. Clinical impression Bigeminy Heart palpitations Fatigue History & Record Review Discussion w/independent historian: Patient Lab Data Attestation: I reviewed the patient's lab results. Labs: Laboratory Results - last 24 hr 02/17/25 02/17/25 19:46 22:10 WBC 8.3 RBC 4.97 Hgb 15.2 Hct 45.1 MCV 90.7 MCH 30.6 MCHC 33.7 RDW Std Deviation 43.0 RDW Coeff of [place] 13.0 Plt Count 327 MPV 9.1 Immature Gran % (Auto) 0.100 Neut % (Auto) 39.8 L Lymph % (Auto) 47.1 H [place] % (Auto) 10.6 H Eos % (Auto) 1.9 Baso % (Auto) 0.5 Absolute Neuts (auto) 3.3 Absolute Lymphs (auto) 3.90 Nucleated RBC % 0 Sodium 137 Potassium 4.2 Chloride 101 Carbon Dioxide 24.8 Anion Gap 11 BUN 17 Creatinine 0.87 Estim Creat Clear Calc 61.20 Est GFR (MDRD) Non-Af 86 BUN/Creatinine Ratio 19.1 Glucose 87 Calcium 9.7 Magnesium 2.6 H Total Bilirubin 0.29 AST 27 ALT 23 Alkaline Phosphatase 81 Troponin T High Sens 7 Troponin T Hi Sens 2 Hr 7 NT pro BNP II 148 Total Protein 7.8 Albumin 4.2 Globulin 3.6 Albumin/Globulin Ratio 1.2 TSH 3.570 Radiography Chest X-Ray - ED: 2 View, Read by ED Physician, Normal, No Acute Disease and No Infiltrates Diagnostic Testing: Clinical Impression(s) from Imaging Studies Abdomen/Pelvis CT 02/17/25 19:32 IMPRESSION: 1. Subtle hyperdensity of the renal pyramids bilaterally. This can be a normal finding or could represent early findings of medullary nephrocalcinosis. Clinical correlation with close clinical follow-up and as needed imaging is suggested. 2. Gallbladder sludge and/or gallstones without signs of acute cholecystitis. 3. Prostatomegaly. Reading Location: [facility] Chest X-Ray 02/17/25 20:00 IMPRESSION: NO ACUTE FINDINGS. Reading [facility] Discharge Plan Triage Chief Complaint: Palpitations ED Provider: Melvina Handley Dx/Rx/DC Orders Clinical Impression: Bigeminy, Heart palpitations, Fatigue Instructions: ED Heart Palpitations, ED Weakness Uncertain Cause Prescriptions: No Action methylprednisolone 4 mg tablets,dose pack See Rx Instructions PO PER PKG DIR Qty: 21 0RF Rx Instructions: PO PER PKG DIR azithromycin [Zithromax Z-Baljit] 250 mg tablet See Rx Instructions PO .COMPLEX Qty: 6 0RF Rx Instructions: take 500 mg today (day 1), then 250 mg for 4 days (days 2-5) PO acetaminophen 325 mg Tablet 650 mg PO Q4H PRN PRN (Reason: Pain 1-10 Or Fever) Qty: 0 0RF tamsulosin 0.4 mg Capsule 0.4 mg PO DAILY@1730 Qty: 7 0RF Primary Care Provider: Ritchie Corona Referrals: Yaniv Thomas MD [Med Staff - Active Staff, Urology] - As soon as possible Gregoria Kumar MD [Med Staff - Active Staff, Cardiology] - As soon as possible Ritchie Corona MD [Primary Care Provider, Internal Medicine] Activity Restrictions/Additional Instructions: Follow-up with the valet parking attendant listed below as soon as possible. Your evaluation in the Emergency Department did not reveal any acute reason for admission. However, I want to emphasize that you may be early in the course of a disease process or illness even if it is not present. For this reason you should follow-up within 24 hours for reevaluation with either your primary care physician or if necessary back here in the Emergency Department. You should return to the Emergency Department immediately if your symptoms worsen or new symptoms develop. Print Language: Macedonian Disposition Disposition: Home, Self Care
--- NOTE | 2025-02-17 20:00 | RAD_ITS ---
PROCEDURE: CHEST PA AND LATERAL 02/17/2025 REASON FOR EXAM: PALPITATIONS TECHNIQUE: Procedure Code: RADCXR Modality: DX Procedure: CHEST PA AND LATERAL COMPARISON: None available. FINDINGS: Hardware: None. Heart: The heart size is normal. Mediastinum: The mediastinal contour is unremarkable. Lungs: The lungs are clear. No pneumothorax or pleural effusion. Bones: The bones are unremarkable. RAD/Chest PA and Lateral IMPRESSION: NO ACUTE FINDINGS. Reading [facility]
[2025-02-17 20:04] LABS: Hematocrit 45.1 % (40-54); Hemoglobin 15.2 g/dL (13.0-16.5); Immature Granulocytes Count 0.010 X10^3/uL (0.0-0.0); Mean Corp Hgb Conc 33.7 g/dL (32-36); Mean Corpuscular Volume 90.7 fL (80-94); Mean Platelet Vol. 9.1 fl (6.2-12.0); NRBC Flagged by Analyzer 0 % (0-5); Platelet Count 327 K/mm3 (150-450); RBC Distribution Width CV 13.0 % (11.6-14.6); RBC Distribution Width SD 43.0 fl (35.1-43.9); Red Blood Count 4.97 M/mm3 (4.6-6.2); White Blood Count 8.3 K/mm3 (4.4-11.0)
--- OUTSIDE RECORDS SUMMARY | 2025-02-17 20:06 | XMS RPT_ITS | CCD ---
Author Organization [facility] Care Team Providers Care Pacs Specialist Name Role Phone Jonathan Joseph MD Unavailable Thompson Interiano Attending Unavailable Omran, Yasser Referring Unavailable Omran, Yasser Primary Care Unavailable Omran, Yasser Referring Unavailable Omran, Yasser Primary Care Unavailable Bj Kwok Attending Unavailable Roney Saini Attending Unavailable Omran, Yasser Referring Unavailable Omran, Yasser Primary Care Unavailable Bj Kwok Attending Unavailable Thompson Interiano Referring Unavailable Thompson Interiano Attending Unavailable Thompson Interiano Consulting Unavailable Omran, Yasser Primary Care Unavailable Thompson Interiano Referring Unavailable Thompson Interiano Attending Unavailable Jaydon Thompson Admitting Unavailable Thompson Interiano Consulting Unavailable Omran, Yasser Primary Care Unavailable Thompson Interiano Referring Unavailable Calabretta Thompson Admitting Unavailable Omran, Yasser Primary Care Unavailable Thompson Interiano Attending Unavailable Nathalie Hernandez Attending Unavailable Omran, Yasser Primary Care Unavailable DALE JASSO MD Attending Unavailable [facility] [place] III (HIST) Referring Unavailable RENA CESPEDES Admitting Unavailable SANDRA HOWELL Attending Unavailable DARNELL GONZALEZ Consulting Unavailable JONATHAN WALTERS Referring Unavailable OMRAN, YASSER Primary Care Unavailable RITCHIE FREGOSO MD Consulting Unavailable RITCHIE FREGOSO MD Attending Unavailable RITCHIE FREGOSO MD Admitting Unavailable RITCHIE FREGOSO MD Primary Care Unavailable PROVIDER, UNKNOWN Consulting Unavailable PROVIDER, UNKNOWN Consulting Unavailable PROVIDER, UNKNOWN Consulting Unavailable [facility] [place] Admitting Unavailable [facility] [place] Primary Care Unavailable WAI [place] Attending Unavailable RITCHIE FREGOSO MD Consulting Unavailable RITCHIE FREGOSO MD Referring Unavailable PROVIDER, UNKNOWN Consulting Unavailable PROVIDER, UNKNOWN Consulting Unavailable PROVIDER, UNKNOWN Consulting Unavailable TERRELL TUBBS MD Admitting Unavailable TERRELL TUBBS MD Primary Care Unavailable TERRELL TUBBS MD Attending Unavailable RITCHIE FREGOSO MD Referring Unavailable RITCHIE FREGOSO MD Consulting Unavailable PROVIDER, UNKNOWN Consulting Unavailable PROVIDER, UNKNOWN Consulting Unavailable PROVIDER, UNKNOWN Consulting Unavailable NORMA KUMAR MD Admitting NORMA Hopkins MD Primary Care NORMA Hopkins MD Attending RITCHIE Diamond MD Consulting Unavailable PROVIDER, UNKNOWN Consulting Unavailable PROVIDER, UNKNOWN Consulting Unavailable PROVIDER, UNKNOWN Consulting Unavailable RITCHIE FREGOSO MD Consulting Unavailable RITCHIE FREGOSO MD Attending Unavailable RITCHIE FREGOSO MD Admitting Unavailable RITCHIE FREGOSO MD Primary Care Unavailable PROVIDER, UNKNOWN Consulting Unavailable PROVIDER, UNKNOWN Consulting Unavailable PROVIDER, UNKNOWN Consulting Unavailable MANDEEP COLLIER PA%C Admitting Unavailable MANDEEP COLLIER PA%C Primary Care Unavailable MANDEEP COLLIER PA%C Attending Unavailable RITCHIE FREGOSO MD Consulting Unavailable PROVIDER, UNKNOWN Consulting Unavailable PROVIDER, UNKNOWN Consulting Unavailable PROVIDER, UNKNOWN Consulting Unavailable Problems Active Problems Problem Classification Problem Date Documented Da te Episodic/Chronic Disorders of lipid metabolism (2 sources) Hyperlipidemia, unspecified; Translations: [Pure hypercholesterolemia, unspecified] Onset: 5 Chronic Essential hypertension (1 source) Essential (primary) hypertension; Translations: [Essential (primary) hypertension] Onset: 5 Chronic Intracranial injury (3 sources) Other specified intracranial injury without loss of consciousness, initial encounter; Translations: [Other specified intracranial injury without loss of consciousness, initial encounter] Onset: 5 Episodic Open wounds of extremities (2 sources) Laceration without foreign body of right ring finger without damage to nail, initial encounter; Translations: [Laceration without foreign body of right little finger without damage to nail, initial encounter] Onset: 5 Episodic Other aftercare (1 source) MCC (current) use of anticoagulants; Translations: [MCC (current) use of anticoagulants] Onset: 5 Episodic Other complications of (1 source) Deep phlebothrombosis in , unspecified trimester; Translations: [DVT (deep vein thrombosis) in ] Onset: 5 Episodic Other injuries and conditions due to external causes (1 source) Unspecified injury of right wrist, hand and finger(s), sequela; Translations: [Unspecified injury of right wrist, hand and finger(s), sequela] Onset: 5 Episodic Phlebitis; thrombophlebitis and thromboembolism (1 source) Acute embolism and thrombosis of left femoral vein; Translations: [Acute embolism and thrombosis of left femoral vein] Onset: 5 Episodic Pulmonary heart disease (3 sources) Other pulmonary embolism with acute cor pulmonale; Translations: [Other pulmonary embolism with acute cor pulmonale] Onset: 5 Chronic Pulmonary heart disease (1 source) Other pulmonary embolism without acute cor pulmonale; Translations: [Pulmonary embolism, bilateral (HCC)] Onset: 5 Episodic Residual codes; unclassified (1 source) Illness, unspecified; Translations: [Illness, unspecified] Onset: 4 Episodic Unclassified (1 source) Other injury of unspecified body region, initial encounter; Translations: [Other injury of unspecified body region, initial encounter] Onset: 8 10-20-2017 Unclassified (1 source) Cough, unspecified; Translations: [Cough, unspecified] Onset: 4 Unclassified (1 source) Pulmonary embolism; Translations: [Pulmonary embolism] Onset: 5 Past or Other Problems Problem Classification Problem Date Documented Da te Episodic/Chronic Abdominal pain (1 source) Unspecified abdominal pain; Translations: [Unspecified abdominal pain] Onset: 10-30-2023 Episodic Intestinal obstruction without hernia (2 sources) Volvulus; Translations: [Volvulus] Onset: 11-05-2023 Episodic Other lower respiratory disease (2 sources) Dyspnea, unspecified; Translations: [Dyspnea, unspecified] Onset: 04-12-2024 Episodic Other lower respiratory disease (1 source) Other forms of dyspnea; Translations: [Other forms of dyspnea] Onset: 04-12-2024 Episodic Residual codes; unclassified (1 source) Pain, unspecified; Translations: [Pain, unspecified] Onset: 04-12-2024 Episodic Unclassified (1 source) Problem Results Test Name Value Interpretation Reference Range Facility ED MED ADMINISTRATION DETAIL on 11-19-2024 ED MED ADMINISTRATION DETAIL [facility] - ARTURO PAERDES : 1940, , Medication Administration Record [address] [address] [id number] 11/17/2024 Patient: ARTURO PAREDES Sex: Male : 1940 Age: 84y MEASUREMENTS: Wt: 72.6 kg, Ht/Edinson: 67.0 in, BMI: 25.06 ALLERGIES: No known drug allergies Medication Ordered Medication Administration Date/Time 1 of 1 Normal [facility] ED NURSES CLINICAL NOTEon ED NURSES CLINICAL NOTE Nurse Narrative - ARTURO PAREDES : 1940, , Nurse Clinical Narrative [address] [address] [id number] 11/17/2024 11:55:00 Patient: ARTURO PAREDES Sex: Male : 1940 Age: 84y Disposition: Discharge to Home Disposition Decision Time: 16:50 11/17/2024 Departure Time: 17:20 11/17/2024 TRIAGE Arrived by private vehicle. Historian: (patient). Accompanied by family. Primary physician (Heydiran). Triage time: 11:58 11/17/2024. Acuity: LEVEL 3. Chief Complaint: FALL. Tripped. Landed on back. Location of injuries: right thumb, right little finger, tip of right ring finger and tip of right little finger. 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 -- 12:11/17/24 EDT Tash Bautista R.N. 12:03 11/17/24. BP: 153/85 MAP: 108. HR: 67. RR: 17. O2 saturation: 98% Temperature: 97 F. Pain level now 6/10. 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 -- 12:11/17/24 GRETA Bautista R.N. 12:11/17/24. SEPSIS SCREEN: NEGATIVE. SIRS criteria negative. No possible sources of infection. -- 12:11/17/24 GRETA Bautista R.N. Measurements: 12:11/17/24 Wt: 72.6 kg, Ht/Edinson: 67.0 in, BMI: 25.06 -- 12:11/17/24 GRETA Bautista R.N. Medications: rosuvastatin 10 mg tablet: 1 tablet once a day. -- 12:11/17/24 GRETA Bautista R.N. Eliquis 5 mg tablet: 1 tablet once a day. -- 12:11/17/24 GRETA Bautista R.N. 1 of 3 Nurse Narrative - ARTURO PAREDES, : 1940, , red yeast rice 600 mg capsule: 1 capsule twice a day. (pt states has been taking 2 caps in am and pm) -- 12:11/17/24 GRETA Bautista R.N. 11:58 11/17/24. Preferred Pharmacy: ([facility]). -- 12:11/17/24 GRETA Bautista R.N. Allergies: no known drug allergies -- 11:11/17/24 GRETA Bautista R.N. Home Medications/Allergy Information Source: patient -- 11:11/17/24 GRETA Bautista R.N. Problems: Mitral Valve Prolapse -- 11:11/17/24 GRETA Bautista R.N. Hypertension -- 11:11/17/24 GRETA Bautista R.N. blood clots -- 12:11/17/24 GRETA Bautista R.N. Surgeries: Hernia Repair -- 12:11/17/24 GRETA Bautista R.N. Tonsillectomy -- 12:11/17/24 GRETA Bautista R.N. Bowel Surgery -- 12:11/17/24 GRETA Bautista R.N. History 11:58 11/17/24. PAST MEDICAL HX: Tetanus immunization status is not up-to-date. SOCIAL HX: Never smoker. No alcohol use or drug use. The patient has not traveled outside the [place] Infectious disease exposure: No infectious disease exposure. ABUSE ASSESSMENT: The patient answered yes to the question(s) Do you feel safe in your home? and no to the question(s) Are you afraid to go home?. SELF HARM ASSESSMENT: Self harm assessment was performed. The patient answered no to the question(s) Have you recently felt down, depressed, or hopeless? and Do you have thoughts of harming or 2 of 3 Nurse Narrative - ARTURO PAREDES, : 1940, , killing yourself?. FALL RISK ASSESSMENT: Fall risk assessment completed. Risk factors identified include patient age greater than 65 years, history of fall and impairment of mobility. -- 12:05 11/17/24 SHERRONT Tash Bautista R.N. Interventions 11:58 11/17/24. Advanced care plan discussed with patient. Patient has a living will. -- 12:05 11/17/24 SHERRONT Tash Bautista R.N. PHYSICAL ASSESSMENT 14:15 11/17/24. Ambulatory to room. GENERAL / NEURO / PSYCH: Alert. Oriented X 4. Appears in no acute distress. ( Pt went to use a port a pot and hit his head on an awning causing him to fall backwards, pt cut his right hand.). HEENT: Pupils equal, round and reactive to light. Head: tenderness. EXTREMITIES: Right hand: ecchymosis, small abrasion and superficial laceration with controlled bleeding (to pt's right ring finger, tip of his pinky, and a cut to his lower ring finer.). SKIN: Skin is warm and dry. -- 14:40 11/17/24 EDT Courtney Miramontes R.N. NURSING PROGRESS NOTES 12:43 11/17/24. Patient walked to sonogram with [employer] -- 13:08 11/17/24 GRETA Bautista R.N. DISPOSITION / DISCHARGE Departure time: 17:20 11/17/2024. Condition at departure: improved. No learning barriers present. Discharge instructions provided and reviewed with the patient. Reviewed warnings (s/s of infection). Reviewed medication(s) (OTC). Reviewed skin care instructions. Reviewed referral to a primary care physician for followup. Patient and family verbalized understanding. Written instructions provided in Frisian. The patient was discharged by the physician. The patient was discharged home and accompanied by family. The patient left ambulatory and via private vehicle. Family member driving. -- 19:32 11/17/24 EDT Courtney Miramontes R.N. 17:20 11/17/24. BP: 131/70 MAP: 90. HR: 69. RR: 16. O2 saturation: 96% - (more content not included)... Normal [facility] ED ORDER SHEET (CPOE ONLY)on 11-19-2024 ED ORDER SHEET (CPOE ONLY) Order Sheet - ARTURO PAREDES, : 1940, , Order Sheet [address] [place] [address] [id number] 11/17/2024 Patient: ARTURO PAREDES Sex: Male : 1940 Age: 84y MEASUREMENTS: Wt: 72.6 kg, Ht/Edinson: 67.0 in, BMI: 25.06 ALLERGIES: No known drug allergies MEDICATION/IV/DRIP/FLUID ORDERS Order Description Priority Entered Acknowledged Completed LAB ORDERS Order Description Priority Entered Acknowledged Collected Completed DIAGNOSTIC STUDY ORDERS Order Description Priority Entered Acknowledged Completed CV Venous LT Leg Stat Stat 12:16 11/17/2024 12:20 16:05 Tash Bautista R.N. 11/17/2024 11/17/2024 Verbal Order, Auth by: Tash Price Philip Coverdale, M.D. R.N. R.N. Read back and verified Order Comments: 12:16 11/17/2024: (in waiting room) Tash Bautista R.N. Reason for Study: Lower Ext Pain/Immobility CT Brain wo Cont Stat Stat 15:38 11/17/2024 16:05 Terrell Tubbs M.D. 11/17/2024 Tash Bautista R.N. 1 of 2 Order Sheet - ARTURO PAREDES, : 1940, , Reason for Study: Head Injury STAFF ORDERS Order Description Priority Entered Acknowledged Collected Completed [Electronically signed by Terrell Tubbs M.D. (11/17/2024 15:38 EDT)] [Electronically signed by Terrell Tubbs M.D. (11/19/2024 07:39 EDT)] 2 of 2 Normal [facility] ED PHYSICIAN CLINICAL REPORT on 11-19-2024 ED PHYSICIAN CLINICAL REPORT Narrative - ARTURO PAREDES, : 1940, , Physician Clinical [address] [place] [address] [id number] 11/17/2024 11:55:00 Patient: ARTURO PAREDES Sex: Male : 1940 Age: 84y Disposition: Discharge to Home Disposition Decision Time: 16:50 11/17/2024 Departure Time: 17:20 11/17/2024 Measurements Wt: 72.6 kg, Ht/Edinson: 67.0 in, BMI: 25.06 Initial Vital Sign Measured Time BP MAP HR RR O2Sat ETCO2 Temp Pain GCS RTS 12:03 11/17/2024 153/85 108 67 17 98% 97.0 F 6 Time Seen: 13:32 11/17/2024. HISTORY OF PRESENT ILLNESS Chief Complaint: INJURY TO HEAD and HEAD right fourth and fifth fingers. The injury occurred just prior to arrival. Fell. Occurred at home. The patient complains of mild pain. The patient sustained a blow to the head and was dazed. No neck pain or loss of consciousness. REVIEW OF SYSTEMS SKIN: The patient sustained skin laceration to the right hand. EYES: No loss of vision. CVS: No chest pain. GI: No nausea or vomiting. EARS: No hearing loss. NEUROLOGICAL: No numbness or weakness. 1 of 8 Narrative - ARTURO PAREDES, : 1940, , PAST HISTORY See nurses notes. blood clots Hypertension Mitral Valve Prolapse Surgeries: Bowel Surgery Hernia Repair Tonsillectomy Medications: Eliquis 5 mg tablet: 1 tablet once a day. red yeast rice 600 mg capsule: 1 capsule twice a day. (pt states has been taking 2 caps in am and pm) rosuvastatin 10 mg tablet: 1 tablet once a day. Allergies: no known drug allergies Home Medications/Allergy Information Source: patient - Tash Bautista R.N., 11/17/2024 11:59 EDT SOCIAL HISTORY Never smoker. No alcohol use or drug use. ADDITIONAL NOTES The nursing notes have been reviewed. PHYSICAL EXAM Vital Signs: Have been reviewed as normal. CVS: Heart sounds normal. Pulses normal. Respiratory: Painless inspiration. Chest nontender. 2 of 8 Narrative - ARTURO PAREDES, : 1940, , Abdomen: Soft and nontender. Back: No tenderness. ROM normal. Skin: (superficial Lacerations 2 4th and 5th digits right hand). Extremities: Pelvis stable. No lower extremity edema. Neuro: Oriented X 3. Mood/affect normal. Speech normal. LABS, X-RAYS, AND EKG Diagnostic Study Tests: CV VENOUS LEG LT Final EXAM Date: 11/17/2024 13:10:00 EDT MsgRcvd: 11/17/2024 14:28 EDT [place] [address] Patient: ARTURO PAREDES Phone#: : 1940 Age: 84 Gender: M Pt. Type: ER Account: [id number] Location: [facility] Ordering: DR. BHAKTA COVERDAMIRA Exam Date: 11/17/2024/12:47 Family Phys: RITCHIE FREGOSO Charge Code: [id number] Physician: Brown Order #: [id number] Dose#: PROCEDURE: VENOUS DOPPLER LT LEG COMPARISON: [facility], VENOUS DOPPLER LT LEG, 10/27/2024, 13:08. INDICATIONS: Pain TECHNIQUE: Color duplex Doppler ultrasound evaluation analysis was performed in the usual manner. SOLUTION DIRECTOR: ANNA HENRY RVT [facility] RISK FACTORS FOR VENOUS DISEASE: Other Pain EXAMINATION: RIGHT +Present -Reduced o Absent LEFT SPONT PHASIC AUG REFLUX COMP SPONT PHASIC AUG REFLUX COMP + + + o + CFV + + + o + SFJ + FV (prox) + + + o + 3 of 8 Narrative - ARTURO PAREDES, : 1940, , FV (mid) + FV (dist) + POP V + + + o + T/P TRUNK + + + o + PTV + + + o + PERONEAL V + + + o + GSV + GASTROC SOLEAL V SOLUTION DIRECTOR'S NOTES: FINDINGS: THROMBI: None visible. Continued Report - Page 2 of 2 Patient: ARTURO PAREDES. Phone#: : 1940 Age: 84 Gender: M Pt. Type: ER Account: [id number] Location: 052 Ordering: DR. TERRELL TUBBS Exam Date: 11/17/2024/12:47 Family Phys: RITCHIE FREGOSO Charge Code: [id number] Physician: Brown Order #: [id number] Dose#: COMPRESSIBILITY: Normal. OTHER: Negative. CONCLUSION: 1. There is no evidence of superficial or deep vein thrombus. Dictated by: Deja Abraham MD on 11/17/2024 at 14:23 Approved by: Deja Abraham MD on 11/17/2024 at 14:25 [place] [address] Patient: ARTURO PAREDES. Phone#: : 1940 Age: 84 Gender: M Pt. Type: ER Account: [id number] Location: 052 Ordering: DR. TERRELL TUBBS Exam Date: 11/17/2024/12:47 Family Phys: RITCHIE FREGOSO Charge Code: [id number] Physician: Brown Order #: [id number] Dose#: PROCEDURE: VENOUS DOPPLER LT LEG 4 of 8 Narrative - ARTURO PAREDES, : 1940, , COMPARISON: [facility] [place], CV, VENOUS DOPPLER LT LEG, 10/27/2024, 13:08. INDICATIONS: Pain TECHNIQUE: Color (more content not included)... Normal [facility] ED SUPER BILLon 11-19-2024 ED SUPER BILL [facility] - ARTURO PAREDES, : 1940, , [facility] [address] [place] [address] [phone] 11/17/2024 Patient: ARTURO PAREDES Sex: Male : 1940 Age: 84y Item Professional Category Description Facility Code Code Quantity Fee Total Nurse/E/M EMERGENCY 252204 1 $0.00 $0.00 DEPARTMENT VISIT HIGH/URGENT SEVERITY (63544-03) Nurse/Supplies [employer] [id number] 1 $0.00 $0.00 ([id number]) Grand Total $0.00 Providers Terrell Tubbs M.D. Chief Complaint INJURY TO HEAD and HEAD right fourth and fifth fingers. Principal Diagnosis Minor closed head injury. No loss of consciousness. No right cerebral contusion, right cerebral hemorrhage, right cerebral laceration or right cerebral edema. No left cerebral contusion, left cerebral hemorrhage, left 1 of 2 [facility] ARTURO PAREDES, : 1940, , cerebral laceration or left cerebral edema. No cerebellar contusion or laceration. No brainstem contusion, hemorrhage or laceration. No concussion, traumatic brain injury or skull fracture. Multiple superficial lacerations to the right ring finger and right little finger. No right fingernail injury or foreign body present. Lacerations to right hand closed head injury. ICD-10 Codes S06.890A: Other specified intracranial injury without loss of consciousness, initial encounter S61.214A: Laceration without foreign body of right ring finger without damage to nail, initial encounter S61.216A: Laceration without foreign body of right little finger without damage to nail, initial encounter 2 of 2 Normal [facility] ED VISIT SUMMARYon ED VISIT SUMMARY Visit Overview - ARTURO VALENTINE, : 1940, , Visit Overview [facility] [place] [address] 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 red yeast rice 600 mg capsule: 1 capsule twice a day. (pt states has been taking 2 caps in am and pm) rosuvastatin 10 mg tablet: 1 tablet once a day. PAST MEDICAL HISTORY / PROBLEMS 1 of 3 Visit Overview - ARTURO PAREDES, : 1940, , blood clots Hypertension Mitral Valve Prolapse See nurses notes PAST SURGICAL HISTORY Bowel Surgery Hernia Repair Tonsillectomy SOCIAL HISTORY Smoking status: No Alcohol use: No Drug use: No ED COURSE MEDICATIONS GIVEN IN EMERGENCY DEPARTMENT IV SITE INFORMATION INTAKE OUTPUT REASSESMENT (most recent) 14:15 11/17/24. Ambulatory to room. GENERAL / NEURO / PSYCH: Alert. Oriented X 4. Appears in no acute distress. ( Pt went to use a port a pot and hit his head on an awning causing him to fall backwards, pt cut his right hand.). HEENT: Pupils equal, round and reactive to light. Head: tenderness. EXTREMITIES: Right hand: ecchymosis, small abrasion and superficial laceration with controlled bleeding (to pt's right ring finger, tip of his pinky, and a cut to his lower ring finer.). SKIN: Skin is warm and dry. VITAL SIGNS First Vitals Last Vitals Temp 12:03 11/17/24 97.0 F Temp 17:20 11/17/24 2 of 3 Visit Overview - ARTURO PAREDES, : 1940, , First Vitals Last Vitals BP 12:03 11/17/24 153/85 BP 17:11/17/24 131/70 HR 12:03 11/17/24 67 HR 17:11/17/24 69 RR 12:03 11/17/24 17 RR 17:11/17/24 16 O2 Sat 12:03 11/17/24 98% O2 Sat 17:11/17/24 96% Pain 12:03 11/17/24 6 Pain 17:11/17/24 ETCO2 12:03 11/17/24 ETCO2 17:11/17/24 GCS 12:03 11/17/24 GCS 17:11/17/24 RTS 12:03 11/17/24 RTS 17:11/17/24 PROCEDURES NURSING INTERVENTIONS LABS / STUDIES LABS / STUDIES ORDERED CT Brain wo Cont CV Venous LT Leg CLINICAL IMPRESSION MINOR CLOSED HEAD INJURY. NO LOSS OF CONSCIOUSNESS. NO RIGHT CEREBRAL CONTUSION, RIGHT CEREBRAL HEMORRHAGE, RIGHT CEREBRAL LACERATION OR RIGHT CEREBRAL EDEMA. NO LEFT CEREBRAL CONTUSION, LEFT CEREBRAL HEMORRHAGE, LEFT CEREBRAL LACERATION OR LEFT CEREBRAL EDEMA. NO CEREBELLAR CONTUSION OR LACERATION. NO BRAINSTEM CONTUSION, HEMORRHAGE OR LACERATION. NO CONCUSSION, TRAUMATIC BRAIN INJURY OR SKULL FRACTURE MULTIPLE SUPERFICIAL LACERATIONS TO THE RIGHT RING FINGER AND RIGHT LITTLE FINGER. NO RIGHT FINGERNAIL INJURY OR FOREIGN BODY PRESENT 3 of 3 Normal [facility] ED VITALS FLOW SHEETon 11-19 ED VITALS FLOW SHEET Vitals - ARTURO PAREDES, : 1940, , Vital Sign Flow Sheet [place] [address] [facility] [facility] [place] [address] [phone] 11/17/2024 Patient: ARTURO PAREDES Sex: Male : 1940 Age: 84y Measurements Wt: 72.6 kg, Ht/Edinson: 67.0 in, BMI: 25.06 Measured Time BP MAP HR RR O2Sat ETCO2 Temp Pain GCS RTS 17:20 11/17/2024 131/70 90 69 16 96% 12:03 11/17/2024 153/85 108 67 17 98% 97.0 F 6 1 of [address] [facility] [address] BRAIN W/O CONTRASTon 11-08 CT BRAIN W/O CONTRAST [place] [address] Patient: ARTURO PAREDES Phone#: : 1940 Age: 84 Gender: M Pt. Type: ER Account: [id number] Location: [facility] Ordering: DR. TERRELL TUBBS Exam Date: 11/17/2024/15:49 Family Phys: RITCHIE FREGOSO Charge Code: [id number] Physician: Brown Order #: [id number] Dose#: 57.50 mGy PROCEDURE: CT BRAIN WITHOUT CONTRAST COMPARISON: None. INDICATIONS: Head injury. TECHNIQUE: CT images were obtained without contrast material. All CT scans at this facility use dose modulation, iterative reconstruction, and/or weight based dosing when appropriate to reduce radiation dose to as low as reasonably achievable. IV CONTRAST: No IV contrast used,0.0ml TOTAL DOSE: 57.50 CTDIvol(mGy) FINDINGS: CEREBRUM: No edema, hemorrhage, mass, acute infarction, or inappropriate atrophy. CEREBELLUM: No edema, hemorrhage, mass, acute infarction, or inappropriate atrophy. BRAINSTEM: No edema, hemorrhage, mass, acute infarction, or inappropriate atrophy. CSF SPACES: Ventricles, cisterns, and sulci are appropriate for age. No hydrocephalus, subarachnoid hemorrhage, or mass. SKULL: No mass or other significant visible lesion. SINUSES: Limited views demonstrate no significant mucosal thickening or fluid. ORBITS: Limited views are unremarkable. OTHER: Negative. CONCLUSION: 1. There is no evidence of acute intracranial abnormality. Dictated by: Deja Abraham MD on 11/17/2024 at 16:02 Approved by: Deja Abraham MD on 11/17/2024 at 16:03 Normal [facility] CV VENOUS LEG LTon CV VENOUS LEG LT [place] [address] Patient: ARTURO PAREDES Phone#: : 1940 Age: 84 Gender: M Pt. Type: ER Account: [id number] Location: 052 Ordering: DR. TERRELL TUBBS Exam Date: 11/17/2024/12:47 Family Phys: RITCHIE FREGOSO Charge Code: [id number] Physician: Brown Order #: [id number] Dose#: PROCEDURE: VENOUS DOPPLER LT LEG COMPARISON: [facility], [place], , VENOUS DOPPLER LT LEG, 10/27/2024, 13:08. INDICATIONS: Pain TECHNIQUE: Color duplex Doppler ultrasound evaluation analysis was performed in the usual manner. SOLUTION DIRECTOR: ANNA HENRY RVT [facility] RISK FACTORS FOR VENOUS DISEASE: Other Pain EXAMINATION: RIGHT +Present -Reduced o Absent LEFT SPONT PHASIC AUG REFLUX COMP SPONT PHASIC AUG REFLUX COMP + + + o + CFV + + + o + SFJ + FV (prox) + + + o + FV (mid) + FV (dist) + POP V + + + o + T/P TRUNK + + + o + PTV + + + o + PERONEAL V + + + o + GSV + GASTROC SOLEAL V SOLUTION DIRECTOR'S NOTES: FINDINGS: THROMBI: None visible. Continued Report - Page 2 of 2 Patient: ARTURO PAREDES Phone#: : 1940 Age: 84 Gender: M Pt. Type: ER Account: [id number] Location: 052 Ordering: DR. TERRELL TUBBS Exam Date: 11/17/2024/12:47 Family Phys: RITCHIE FREGOSO Charge Code: 570935 Physician: Brown Order #: [id number] Dose#: COMPRESSIBILITY: Normal. OTHER: Negative. CONCLUSION: 1. There is no evidence of superficial or deep vein thrombus. Dictated by: Deja Abraham MD on 11/17/2024 at 14:23 Approved by: Deja Abraham MD on 11/17/2024 at 14:25 Normal [facility] CV VENOUS LEG LTon CV VENOUS LEG LT [place] [address] Patient: ARTURO PAREDES Phone#: : 1940 Age: 84 Gender: M Pt. Type: Out Account: [id number] Location: 052 Ordering: NAGAPRBOGDAN MARSHALLAJOTHI Exam Date: 10/27/2024/13:08 Family Phys: RITCHIE FREGOSO Charge Code: [id number] Physician: Brown Order #: [id number] Dose#: PROCEDURE: VENOUS DOPPLER LT LEG COMPARISON: None. INDICATIONS: Follow up TECHNIQUE: Color duplex Doppler ultrasound evaluation analysis was performed in the usual manner. SOLUTION DIRECTOR: ANNA HENRY RVT [facility] RISK FACTORS FOR VENOUS DISEASE: Previous DVT or SVT Blood thinner Other Follow up EXAMINATION: RIGHT +Present -Reduced o Absent LEFT SPONT PHASIC AUG REFLUX COMP SPONT PHASIC AUG REFLUX COM + + + o + CFV + + + o + SFJ + FV (prox) + + + o + FV (mid) + FV (dist) + POP V + + + o + T/P TRUNK + + + o + PTV + + + o + PERONEAL V + + + o + GSV + GASTROC SOLEAL V SOLUTION DIRECTOR'S NOTES: Prev exam done at [facility]. FINDINGS: Continued Report - Page 2 of 2 Patient: ARTURO PAREDES Phone#: : 1940 Age: 84 Gender: M Pt. Type: Out Account: [id number] Location: 052 Ordering: ROLANDOAPRBOGDAN MARSHALLPetraKENNY Exam Date: 10/27/2024/13:08 Family Phys: RITCHIE FREGOSO Charge Code: 850468 Physician: Brown Order #: [id number] Dose#: THROMBI: None visible. COMPRESSIBILITY: Normal. OTHER: Negative. CONCLUSION: 1. No evidence of deep venous thrombosis in the left lower extremity Dictated by: Neva Carlos MD on 10/27/2024 at 13:32 Approved by: Neva Carlos MD on 10/27/2024 at 13:34 Normal [facility] C-REACTIVE PROTEINon 025 CRP 0.21 mg/dl Normal 0.00 - 0.90 [facility] Comment on above: Performed By: #### 2 08033 #### [facility],[address] [place] [address] CBC (NO DIFF)on 09-22-2024 CBC panel Auto (Bld) Normal [facility] Comment on above: Result Comment: CBC( WITHOUT DIFFERENTIAL) Performed By: #### 2 80559 #### [facility],[address] [place] [address] Erythrocyte distribution width (RBC) [Ratio] 13.6 % Normal 12.0 - 15.6 [facility] Comment on above: Performed By: #### 2 36234 #### [place] [address] Hematocrit (Bld) [Volume fraction] 41.7 % Normal 40.0 - 52.0 [facility] Comment on above: Performed By: #### 2 13762 #### [facility],[address] [place] [address] Hemoglobin (Bld) [Mass/Vol] 14.4 g/dL Normal 13.0 - 17.5 [facility] Comment on above: Performed By: #### 2 66247 #### [facility],[address] [place], [place] [address] MCH (RBC) [Entitic mass] 31 pg Normal 27 - 33 [facility] Comment on above: Performed By: #### 2 01964 #### [place] [address] MCHC 34 X10 3 Normal 32 - 36 [facility] Comment on above: Performed By: #### 2 34140 #### [place] [id number] MCV (RBC) [Entitic vol] 91 fL Normal 81 - 98 [facility] Comment on above: Performed By: #### 2 17392 #### [facility],[address] [place], [place] [address] PLATELET 310 x10EE3/UL Normal 150 - 450 [facility] Comment on above: Performed By: #### 2 14056 #### [facility],[address] [place] [address] Platelet mean volume (Bld) [Entitic vol] 7.5 fL Normal 6.4 - 10.5 [facility] Comment on above: Performed By: #### 2 27675 #### [facility],[address] [place] [address] RBC 4.60 x 10EE6/UL Normal 4.50 - 6.00 [facility] Comment on above: Performed By: #### 2 23499 #### [facility],[address] [place] [address] WBC 6.2 x 10EE3/UL Normal 4.5 - 10.8 [facility] Comment on above: Performed By: #### 2 61907 #### [facility],[address] [place] [address] CMP with eGFRon 09-22-2024 AGE 84 years Normal [facility] Comment on above: Performed By: #### 2 91354 #### [facility],[address] [place], [place] [address] Albumin [Mass/Vol] 3.5 g/dL Normal 3.4 - 5.0 [facility] Comment on above: Performed By: #### 2 31824 #### [facility],[address] [place], [place] [address] Albumin/Globulin [Mass ratio] 0.9 {ratio} Normal 0.9 - 1.6 [facility] Comment on above: Performed By: #### 2 47121 #### [facility],[address] [place] [address] 97947 ALK PHOS 72 U/L Normal 46 - 116 [facility] Comment on above: Performed By: #### 2 22211 #### [facility],[address] [place] [address] 71837 ALT [Catalytic activity/Vol] 26 U/L Normal 16 - 63 [facility] Comment on above: Performed By: #### 2 49191 #### [facility],[address] [place] [address] 12805 Anion gap [Moles/Vol] 11 mmol/L Normal 10 - 20 [facility] Comment on above: Performed By: #### 2 46890 #### [facility],[address] [place] [address] 29776 AST [Catalytic activity/Vol] 20 U/L Normal 15 - 37 [facility] Comment on above: Performed By: #### 2 66646 #### [facility],[address] [place] [address] 07284 B/C RATIO 14 ratio Normal 0 - 30 [facility] Comment on above: Performed By: #### 2 97597 #### [facility],[address] [place] [address] 08689 Bilirubin [Mass/Vol] 0.6 mg/dL Normal 0.2 - 1.0 [facility] Comment on above: Performed By: #### 2 35641 #### [facility],[address] [place] [address] 90480 Calcium [Mass/Vol] 8.7 mg/dL Normal 8.5 - 10.1 [facility] Comment on above: Performed By: #### 2 50395 #### [facility],[address] [place] [address] 04542 Chloride [Moles/Vol] 102 mmol/L Normal 98 - 107 [facility] Comment on above: Performed By: #### 2 65552 #### [facility],[address] [place] [address] 20949 CMP with eGFR Normal [facility] Comment on above: Result Comment: COMP REHENSIVE METABOLIC PANEL Performed By: #### 2 52058 #### [facility],[address] [place] [address] 58282 CO2 [Moles/Vol] 28.5 mmol/L Normal 21.0 - 32.0 [facility] Comment on above: Performed By: #### 2 92302 #### [facility],[address] [place] [address] 33861 Creatinine [Mass/Vol] 0.71 mg/dL Normal 0.70 - 1.30 [facility] Comment on above: Performed By: #### 2 73152 #### [facility],[address] [place] [address] 07049 GFR/1.73 sq M.predicted among non-blacks MDRD (S/P/Bld) [Vol rate/Area] mL/min/{1.73_m2} Normal 60 - 999 [facility] Comment on above: Performed By: #### 2 35417 #### [facility],[address] [place], [place] [address] Result Comment: ACCO RDING TO THE NATIONAL KIDNEY DISEASE EDUCATION PROGRAM(NKDE), A NORMAL eGFR IS A VALUE GREATER THAN OR EQUAL TO 60 ML/MIN/1.73 SQ METERS. CHRONIC KIDNEY DISEASE: <60mL/MIN/1.73 SQ METERS KIDNEY FAILURE: <15mL/MIN/1.73 SQ METERS THIS TEST SHOULD ONLY BE USED FOR PATIENTS 18 YEARS OF AGE AND OLDER. Globulin (S) [Mass/Vol] 4.1 g/dL High 1.5 - 3.8 [facility] Comment on above: Performed By: #### 2 64245 #### [facility],[address] [place] [address] 12653 Glucose [Mass/Vol] 93 mg/dL Normal 74 - 106 [facility] Comment on above: Performed By: #### 2 69201 #### [facility],[address] [place] [address] 40350 Potassium [Moles/Vol] 3.9 mmol/L Normal 3.5 - 5.1 [facility] Comment on above: Performed By: #### 2 08856 #### [facility],[address] [place] [address] 93792 Protein [Mass/Vol] 7.6 g/dL Normal 6.4 - 8.2 [facility] Comment on above: Performed By: #### 2 49744 #### [facility],[address] [place] [address] 08236 Sodium [Moles/Vol] 138 mmol/L Normal 136 - 145 [facility] Comment on above: Performed By: #### 2 48484 #### [facility],[address] [place] [address] 82008 Urea nitrogen [Mass/Vol] 10 mg/dL Normal 7 - 18 [facility] Comment on above: Performed By: #### 2 44250 #### [facility],[address] [place] [address] 81486 LIPID PROFILEon 09-22-2024 Cholesterol [Mass/Vol] 271 mg/dL High 0 - 240 [facility] Comment on above: Performed By: #### 2 49714 #### [facility],[address] [place] [address] 64378 Cholesterol in HDL [Mass/Vol] 49 mg/dL Normal 40 - 60 [facility] Comment on above: Performed By: #### 2 50471 #### [facility],[address] [place] [address] 90072 Cholesterol in LDL [Mass/Vol] 199 mg/dL High 0 - 129 [facility] Comment on above: Performed By: #### 2 50746 #### [facility],[address] [place] [address] 53802 Cholesterol.total/ Cholesterol in HDL [Mass ratio] 5.5 {ratio} High 0.0 - 5.0 [facility] Comment on above: Performed By: #### 2 16686 #### [facility],[address] [place] [address] 67178 Lipid 1996 panel Normal [facility] Comment on above: Result Comment: LIPI D PROFILE Performed By: #### 2 35037 #### [facility],[address] [place] [address] 53474 Triglyceride [Mass/Vol] 116 mg/dL Normal 0 - 150 [facility] Comment on above: Performed By: #### 2 13338 #### [facility],[address] [place] [address] 93833 URINALYSISon 09-22-2024 Bilirubin Ql (U) Negative Normal NORMAL: NEGATIVE [facility] Comment on above: Performed By: #### 2 16621 #### [facility],[address] [place] [address] 42283 Clarity (U) clear Normal NORMAL: CLEAR [facility] Comment on above: Performed By: #### 2 29834 #### [facility],[address] [place] [address] 20933 Color (U) yellow Normal NORMAL: YELLOW [facility] Comment on above: Performed By: #### 2 40735 #### [facility],[address] [place] [address] 03409 Glucose Ql (U) NORM Normal NORMAL: NORMAL [facility] Comment on above: Performed By: #### 2 98620 #### [facility],[address] [place] [address] 39988 Hemoglobin Ql (U) Negative Normal NORMAL: NEGATIVE [facility] Comment on above: Performed By: #### 2 61091 #### [facility],[address] [place] [address] 93224 Ketone Negative Normal NORMAL: NEGATIVE [facility] Comment on above: Performed By: #### 2 16049 #### [facility],[address] [place] [address] Leukocytes Negative Normal NORMAL: NEGATIVE [facility] Comment on above: Performed By: #### 2 47801 #### [facility],[address] [place] [address] Nitrite Ql (U) Negative Normal NORMAL: NEGATIVE [facility] Comment on above: Performed By: #### 2 32880 #### [facility],[address] [place] [address] pH (U) 7 [pH] Normal NORMAL: 5.0-8.0 [facility] Comment on above: Performed By: #### 2 35594 #### [facility],[address] [place] [address] Protein Ql (U) 15 Abnormal NORMAL: NEGATIVE [facility] Comment on above: Performed By: #### 2 84354 #### [place] [address] Sp [place] 1.010 Normal NORMAL: 1.010-1.030 [facility] Comment on above: Performed By: #### 2 12707 #### [facility],[address] [place] [address] Specimen Type R Normal [facility] Comment on above: Performed By: #### 2 49692 #### [facility],[address] [place] [address] Urinalysis dipstick W Reflex Microscopic panel (U) NOT INDICATED Normal [facility] Comment on above: Performed By: #### 2 75489 #### [facility],[address] [place] [address] Urobilinog NORM Normal NORMAL: NORMAL [facility] Comment on above: Performed By: #### 2 76677 #### [facility],[address] [place] [address] CBC panel Auto (Bld)on 04-14 Erythrocyte distribution width (RBC) [Ratio] 13.3 % Normal 11.5-15.0 [facility] Comment on above: Order Comment: Speci men Type: BLOOD SPECIMEN Ordering Facility: [facility] Address: [address] [place] [address] Performed By: #### 3 4528-0, 15520-5 #### [facility] CLIA [id number] [address] [place] [address] [place] Hematocrit (Bld) [Volume fraction] 35.2 % Low 39.0-51.0 [facility] Comment on above: Order Comment: Speci men Type: BLOOD SPECIMEN Ordering Facility: [facility] Address: [address] [place] [address] Performed By: #### 3 4528-0, 91064-2 #### [facility] CLIA [id number] [address] [place] [address] [place] Hemoglobin (Bld) [Mass/Vol] 11.9 g/dL Low 13.0-17.0 [facility] Comment on above: Order Comment: Speci men Type: BLOOD SPECIMEN Ordering Facility: [facility] Address: [address] [place] [address] Performed By: #### 3 4528-0, 23546-0 #### [facility] CLIA [id number] [address] [place] [address] [place] MCH (RBC) [Entitic mass] 30.9 pg Normal 26.0-34.0 [facility] Comment on above: Order Comment: Speci men Type: BLOOD SPECIMEN Ordering Facility: [facility] Address: [address] [place] [address] Performed By: #### 3 4528-0, 03658-0 #### [facility] CLIA [id number] [address] [place] [address] [place] MCHC (RBC) [Mass/Vol] 33.8 g/dL Normal 30.5-36.0 [facility] Comment on above: Order Comment: Speci men Type: BLOOD SPECIMEN Ordering Facility: [facility] Address: [address] [place] [address] Performed By: #### 3 4528-0, 17533-8 #### [facility] CLIA [id number] [address] [place] [address] [place] MCV (RBC) [Entitic vol] 91.4 fL Normal 80.0-100.0 [facility] Comment on above: Order Comment: Speci men Type: BLOOD SPECIMEN Ordering Facility: [facility] Address: [address] [place] [address] Performed By: #### 3 4528-0, 95677-2 #### [facility] CLIA [id number] [address] [place] [address] [place] Nucleated RBC (Bld) [#/Vol] 10*3/uL Normal <0.01 [facility] Comment on above: Order Comment: Speci men Type: BLOOD SPECIMEN Ordering Facility: [facility] Address: [address] [place] [address] Performed By: #### 3 4528-0, 46912-8 #### [facility] CLIA [id number] [address] [place] [address] [place] Platelet mean volume (Bld) [Entitic vol] 8.4 fL Low 9.0-12.7 [facility] Comment on above: Order Comment: Speci men Type: BLOOD SPECIMEN Ordering Facility: [facility] Address: [address] [facility] [place] [address] Performed By: #### 3 4528-0, 48029-8 #### [facility] CLIA [id number] [address] [place] [address] [place] Platelets (Bld) [#/Vol] 312 10*3/uL Normal 150-400 [facility] Comment on above: Order Comment: Speci men Type: BLOOD SPECIMEN Ordering Facility: [facility] Address: [address] [facility] [place] [address] Performed By: #### 3 4528-0, 01434-0 #### [facility] CLIA [id number] [address] [place] [address] [place] RBC (Bld) [#/Vol] 3.85 10*6/uL Low 4.20-6.00 [facility] Comment on above: Order Comment: Yahaira bahena Type: BLOOD SPECIMEN Ordering Facility: [facility] Address: [address] [place], [place] [address] Performed By: #### 3 4528-0, 95776-3 #### [facility] CLIA [id number] [address] [place], [place] [address] [facility] WBC (Bld) [#/Vol] 6.86 10*3/uL Normal 3.70-11.00 [facility] Comment on above: Order Comment: Yahaira bahena Type: BLOOD SPECIMEN Ordering Facility: [facility] Address: [address] [place] [address] Performed By: #### 3 4528-0, 29765-8 #### [facility] CLIA [id number] [address] [place], [place] [address] [facility] [place] CNDSon 04-14-2024 CNDS HNO ID: [id number] Author: SANDRA HOWELL DO Service: Hospital Medicine Author Type: Physician Type: Discharge Summary Filed: 04/14/2024 16:20 Note Text: DISCHARGE SUMMARY PATIENT NAME: Arturo Paredes ADMISSION DATE: 04/12/2024 DISCHARGE DATE: 04/14/2024 ATTENDING PHYSICIAN: Sandra Howell DO Code Status: Full Code CONSULTING TEAMS DURING HOSPITALIZATION: Hematology Pulmonology REASON FOR HOSPITALIZATION: Acute hypoxic respiratory failure secondary to bilateral pulmonary emboli DIAGNOSIS: Acute hypoxic respiratory failure Bilateral pulmonary emboli ?Right heart strain Left lower extremity DVT Hypertension OPERATIONS/PROCEDURES DURING HOSPITALIZATION: None HOSPITAL COURSE: Acute hypoxic respiratory failure Bilateral pulmonary emboli ?Right heart strain Patient initially presented to an [facility] ED with shortness of breath and chest/shoulder pain He was found to be hypoxic on arrival CT angiogram showed evidence of bilateral pulmonary emboli and possible right heart strain Patient transferred here to [facility] on 04/12 Pulmonology and hematology consulted Patient anticoagulated with a heparin drip Echocardiogram ordered to further evaluate for right heart strain, ultimately none was seen Symptoms improved in the days that followed Supplemental oxygen was weaned Anticoagulation transition to Eliquis on discharge, Rx provided Patient will follow-up with hematology in the outpatient setting (patient's daughter does have factor V Leiden) Left lower extremity DVT Seen on Doppler ultrasound Treated as outlined above Chronic comorbidities Hypertension Patient discharged home on 04/14. PHYSICAL EXAM: BP 133/62 Pulse 73 Temp (Src) 97.2 (Oral) Resp 19 Ht 5' 7 (1.70m) Wt 158 lb 11.7 oz (72.0kg) SpO2 95% BMI 24.85 kg/(m2). O2 Therapy: Room Air, Liters: 1.5 General: alert and oriented x3, resting comfortably Neck: supple, no hepatojugular reflux or jugular venous distention, no carotid bruits Lungs: clear to auscultation bilaterally, no wheezing, rales, or rhonchi Cardiac: regular rate and rhythm, normal S1 and S2, no murmurs, gallops, or rubs Abdomen: soft, nontender, nondistended, bowel sounds present Extremities: no edema, cyanosis, or clubbing Skin: no rashes or breakdown Lymphatic: no cervical or supraclavicular lymphadenopathy Neurologic: cranial nerves II-XII are grossly intact Psychiatry: normal affect, no hallucinations, no suicidal ideation DISCHARGE MEDICATION: Medication List START taking these medications ELIQUIS DVT-PE TREAT 30D START 5 mg (74 tabs) Generic drug: apixaban Take 2 tablets (10 mg) by mouth twice daily for 7 days. Then take 1 tablet (5 mg) by mouth twice daily for 23 days CONTINUE taking these medications metoprolol tartrate (short acting) 25 mg tablet Commonly known as: LOPRESSOR Take 1 tablet by mouth twice daily. Where to Get Your Medications These medications were sent to e- [id number] [place] [address] - [address] [facility] - [phone] [address] [address] [facility] [address] ELIQUIS DVT-PE TREAT 30D START 5 mg (74 tabs) FUTURE APPOINTMENTS: No future appointments. Follow Up Appointments Follow-Up Appointment When: In 2 weeks Ritchie Fregoso MD [phone] [facility] [address] [address] PCP Requested Referral Follow-Up Appointment When: In 2 weeks Darnell Gonzalez MD [phone] [place] [address] [address] [place] [phone] PCP Requested Referral PATIENT CONDITION AT DISCHARGE: Stable DISCHARGE DISPOSITION: Home DISCHARGE TIME: 33 minutes SIGNATURE: Sandra Howell DATE: April 14, 2024 TIME: 4:17 PM Normal [facility] ECHO LIMITEDon 04-14-2024 ECHO LIMITED Echocardiography Rep ort: [facility] Date of service: 04/14/2024 1:00:43 PM Ordering physician: JONATHAN WALTERS Indication: Pulmonary Embolism Technologist: Stella Kaur RDCS Interpreting physician: Carrie Hopkins MD PATIENT: Name: MR. ARTURO PAREDES : 1940 Age: 84 years Gender: M History of dyslipidemia and valvular heart disease. Primary rhythm: sinus. Height: 170.20 cm BSA: 1.66 m Weight: 58.51 kg BMI: 20.2 kg/m Heart rate 67 bpm Blood pressure 114/58 mmHg Color Doppler was utilized to interrogate the cardiac valves assessed and spectral Doppler was utilized to determine the flow velocities and pressure gradients reported in this exam. Myocardial strain analysis was performed in this exam to aid in the assessment of cardiac function. MEASUREMENTS: Value Indexed Normal Max aortic dimension 2.7 cm Ao < 3.8 LV ID (diastole) 3.6 cm (2D) 2.16 cm/m LV ID (systole) 2.4 cm (2D) 1.44 cm/m IVS, leaflet tips 1.1 cm (2D) Posterior wall thickness 1.2 cm (2D) Left ventricular mass 133 g (2D) 80 g/m Global peak long strain -18.0 % LV stroke volume 31 ml (2D biplane) LVOT stroke volume 82 ml 49 ml/m LV end diastolic volume 52 ml (2D biplane) 31.2 ml/m 34<=EDVi<75 LV end systolic volume 21 ml (2D biplane) 12.5 ml/m Ejection Fraction 60 % (2D biplane) EF > 52 FINDINGS: LEFT VENTRICLE The left ventricle is small. There is mild concentric left ventricular hypertrophy. Left ventricular systolic function is normal. Global LV myocardial strain is normal. Wall Motion: All scored segments are normal. RIGHT VENTRICLE The right ventricle is normal in size. Right ventricular systolic function is normal. Tricuspid annular displacement is 3.0 cm. Estimated right ventricular systolic pressure is 50 mmHg consistent with moderate pulmonary hypertension. Estimated right atrial pressure is 3 mmHg based on IVC assessment. RIGHT ATRIUM The right atrial cavity is mildly dilated. Inferior Vena Cava: The inferior vena cava appears normal measuring 1.8 cm. The vessel decreases greater than 50 percent with inspiration. MITRAL VALVE There is no mitral stenosis. There is trace mitral valve regurgitation. TRICUSPID VALVE There is no tricuspid stenosis. There is moderate (2+) tricuspid valve regurgitation. AORTIC VALVE There is mild aortic valve stenosis. There is no aortic valve regurgitation. Tricuspid aortic valve. There is mild thickening. There is mild calcification. The peak gradient is 33 mmHg (peak velocity = 286.5 cm/s). The mean gradient is 18 mmHg. The LVOT mean velocity is 71.8 cm/s. The LVOT diameter is 2.1 cm. The aortic VTI is 54.5 cm. The mean velocity in the aortic valve is 198.0 cm/s. The dimensionless valve index is 0.43. AV area is 1.50 cm (0.90 cm /m ) by continuity, VTI. The LVOT stroke volume index is 49 ml/m . PULMONIC VALVE The peak gradient is 7 mmHg. AORTA The visualized aorta is normal in size. Measurements - Sinus: 2.7 cm. Sinotubular junction 2.5 cm. PULMONARY ARTERIES The pulmonary arteries are normal. PERICARDIUM The pericardium is normal. CONCLUSIONS: - Exam indication: Pulmonary Embolism - The left ventricle is small. There is mild concentric left ventricular hypertrophy. Left ventricular systolic function is normal. EF = 60 5% (2D biplane) - The right ventricle is normal in size. Right ventricular systolic function is normal. - The right atrial cavity is mildly dilated. - There is moderate (2+) tricuspid valve regurgitation. - Estimated right ventricular systolic pressure is 50 mmHg consistent with moderate pulmonary hypertension. Estimated right atrial pressure is 3 mmHg based on IVC assessment. - The patient has not had a prior CC echocardiographic exam for comparison. * * * Final * * * [facility] Image : [id number] [email or web address] Normal [facility] aPTT PPPon 04-14-2024 aPTT Coag (PPP) [Time] 68.0 s High 23.0-32.4 [facility] Comment on above: Order Comment: Speci men Type: BLOOD SPECIMEN Ordering Facility: [facility] Address: [address] [place] [address] Performed By: #### 3 4528-0, 11378-0 #### [facility] CLIA [id number] [address] [place], [place] [address] [place] Basic metabolic 2000 panelon 04-13-2024 Anion gap [Moles/Vol] 3 mmol/L Low 5-16 [facility] Comment on above: Order Comment: Speci men Type: BLOOD SPECIMEN Ordering Facility: [facility] Address: [address] [place] [address] Performed By: #### 3 4528-0, 32278-5 #### [facility] CLIA [id number] [address] [place] [address] [place] Calcium [Mass/Vol] 8.9 mg/dL Normal 8.5-10.5 [facility] Comment on above: Order Comment: Speci men Type: BLOOD SPECIMEN Ordering Facility: [facility] Address: [address] [place] [address] Performed By: #### 3 4528-0, 60905-4 #### [facility] CLIA [id number] [address] [place] [address] [place] Chloride [Moles/Vol] 102 mmol/L Normal 98-107 [facility] Comment on above: Order Comment: Speci men Type: BLOOD SPECIMEN Ordering Facility: [facility] Address: [address] [place] [address] Performed By: #### 3 4528-0, 76114-4 #### [facility] CLIA [id number] [address] [place], [place] [address] [place] CO2 [Moles/Vol] 32 mmol/L Normal 21-32 [facility] Comment on above: Order Comment: Speci men Type: BLOOD SPECIMEN Ordering Facility: [facility] Address: [address] [place] [address] Performed By: #### 3 4528-0, 57214-4 #### [facility] CLIA [id number] [address] [place] [address] [place] Creatinine [Mass/Vol] 0.74 mg/dL Normal 0.50-1.40 [facility] Comment on above: Order Comment: Speci men Type: BLOOD SPECIMEN Ordering Facility: [facility] Address: [address] [place] [address] Result Comment: Akila ents receiving either N-Acetylcysteine (NAC) or Metamizole prior to venipuncture, may have falsely depressed results. Performed By: #### 3 4528-0, 37999-9 #### [facility] CLIA [id number] [address] [place] [address] Creatinine and Glomerular filtration rate.predicted panel (S/P/Bld) 90 mL/min/1.73m??? Normal >=60 [facility] Comment on above: Order Comment: Yahaira bahena Type: BLOOD SPECIMEN Ordering Facility: [facility] Address: [address] [place] [address] Result Comment: Blank mated Glomerular Filtration Rate (eGFR) is calculated using the 2020 CKD-EPI creatinine equation. This equation utilizes serum creatinine, sex, and age as parameters. The creatinine assay has traceable calibration to isotope dilution-mass spectrometry. Refer to KDIGO guidelines for clinical interpretation. In patients with unstable renal function, e.g. those with acute kidney injury, the eGFR may not accurately reflect actual GFR. Performed By: #### 3 4528-0, 71999-7 #### [facility] CLIA [id number] [address] [place] [address] [place] Glucose [Mass/Vol] 105 mg/dL High 70-100 [facility] Comment on above: Order Comment: Yahaira bahena Type: BLOOD SPECIMEN Ordering Facility: [facility] Address: [address] [place] [address] Result Comment: The [place] Diabetes Association (ADA) provides guidance for cutoff values for fasting glucose and random glucose. The ADA defines fasting as no caloric intake for at least 8 hours. Fasting plasma glucose results between 100 to 125 mg/dL indicate increased risk for diabetes (prediabetes). Fasting plasma glucose results greater than or equal to 126 mg/dL meet the criteria for diagnosis of diabetes. In the absence of unequivocal hyperglycemia, results should be confirmed by repeat testing. In a patient with classic symptoms of hyperglycemia or hyperglycemic crisis, random plasma glucose results greater than or equal to 200 mg/dL meet the criteria for diagnosis of diabetes. Reference: Standards of Medical Care in Diabetes 2016, [place] Diabetes Association. Diabetes Care. 2016.39(Suppl 1). Results may be falsely elevated after the administration of Sulfapyridine. Results may be falsely depressed after the administration of Sulfasalazine. Performed By: #### 3 4528-0, 32449-2 #### [facility] CLIA [id number] [address] [place] [address] [place] Potassium [Moles/Vol] 5.0 mmol/L Normal 3.5-5.1 [facility] Comment on above: Order Comment: Speci men Type: BLOOD SPECIMEN Ordering Facility: [facility] Address: [address] [place] [address] Performed By: #### 3 4528-0, 94380-7 #### [facility] CLIA [id number] [address] [place] [address] [place] Sodium [Moles/Vol] 137 mmol/L Normal 136-145 [facility] Comment on above: Order Comment: Speci men Type: BLOOD SPECIMEN Ordering Facility: [facility] Address: [address] [place] [address] Performed By: #### 3 4528-0, 46941-7 #### [facility] CLIA [id number] [address] [place] [address] [place] Urea nitrogen [Mass/Vol] 9 mg/dL Normal 7-26 [facility] Comment on above: Order Comment: Speci men Type: BLOOD SPECIMEN Ordering Facility: [facility] Address: [address] [place] [address] Performed By: #### 3 4528-0, 02160-0 #### [facility] CLIA [id number] [address] [place] [address] [place] CBC panel Auto (Bld)on 04-13 Erythrocyte distribution width (RBC) [Ratio] 13.2 % Normal 11.5-15.0 [facility] Comment on above: Order Comment: Speci men Type: BLOOD SPECIMEN Ordering Facility: [facility] Address: [address] [place] [address] Performed By: #### 5 8410-2 #### [facility] CLIA [id number] [address] [place] [address] [place] Hematocrit (Bld) [Volume fraction] 37.0 % Low 39.0-51.0 [facility] Comment on above: Order Comment: Speci men Type: BLOOD SPECIMEN Ordering Facility: [facility] Address: [address] [place] [address] Performed By: #### 5 8410-2 #### [facility] CLIA [id number] [address] [place] [address] OF [place] Hemoglobin (Bld) [Mass/Vol] 12.6 g/dL Low 13.0-17.0 [facility] Comment on above: Order Comment: Speci men Type: BLOOD SPECIMEN Ordering Facility: [facility] Address: [address] [place] [address] Performed By: #### 5 8410-2 #### [facility] CLIA [id number] [address] [place] [address] [place] MCH (RBC) [Entitic mass] 31.0 pg Normal 26.0-34.0 [facility] Comment on above: Order Comment: Speci men Type: BLOOD SPECIMEN Ordering Facility: [facility] Address: [address] [place] [address] Performed By: #### 5 8410-2 #### [facility] CLIA [id number] [address] [place] [address] [place] MCHC (RBC) [Mass/Vol] 34.1 g/dL Normal 30.5-36.0 [facility] Comment on above: Order Comment: Speci men Type: BLOOD SPECIMEN Ordering Facility: [facility] Address: [address] [place] [address] Performed By: #### 5 8410-2 #### [facility] CLIA [id number] [address] [place] [address] [place] MCV (RBC) [Entitic vol] 91.1 fL Normal 80.0-100.0 [facility] Comment on above: Order Comment: Speci men Type: BLOOD SPECIMEN Ordering Facility: [facility] Address: [address] [place] [address] Performed By: #### 5 8410-2 #### [facility] CLIA [id number] [address] [place] [address] [place] Nucleated RBC (Bld) [#/Vol] 10*3/uL Normal <0.01 [facility] Comment on above: Order Comment: Speci men Type: BLOOD SPECIMEN Ordering Facility: [facility] Address: [address] [place] [address] Performed By: #### 5 8410-2 #### [facility] CLIA [id number] [address] [place] [address] [place] Platelet mean volume (Bld) [Entitic vol] 8.3 fL Low 9.0-12.7 [facility] Comment on above: Order Comment: Speci men Type: BLOOD SPECIMEN Ordering Facility: [facility] Address: [address] [place] [address] Performed By: #### 5 8410-2 #### [facility] CLIA [id number] [address] [place] [address] [place] Platelets (Bld) [#/Vol] 323 10*3/uL Normal 150-400 [facility] Comment on above: Order Comment: Speci men Type: BLOOD SPECIMEN Ordering Facility: [facility] Address: [address] [place] [address] Performed By: #### 5 8410-2 #### [facility] CLIA [id number] [address] [place] [address] OF [facility] RBC (Bld) [#/Vol] 4.06 10*6/uL Low 4.20-6.00 [facility] Comment on above: Order Comment: Yahaira bahena Type: BLOOD SPECIMEN Ordering Facility: [facility] Address: [address] [place] [address] Performed By: #### 5 8410-2 #### [facility] CLIA [id number] [address] [place] [address] WBC (Bld) [#/Vol] 7.91 10*3/uL Normal 3.70-11.00 [facility] Comment on above: Order Comment: Yahaira bahena Type: BLOOD SPECIMEN Ordering Facility: [facility] Address: [address] [place] [address] Performed By: #### 5 8410-2 #### [facility] CLIA [id number] [address] [place] [address] CONSULTon 04-13-2024 CONSULT HNO ID: [id number] Author: HALLIE KUMAR MD Service: Hematology/Oncology Author Type: Nurse Practitioner Type: Consults Filed: 04/13/2024 18:35 Note Text: Attestation signed by Hallie Kumar MD at 04/13/2024 6:35 PM Plan of care was discussed with my nurse practitioner in detail. Agree with her note. Patient's DVT and PE is possibly provoked by his ongoing medical issues and illness since January 2024. He was having a sedentary lifestyle secondary to that. Would recommend at least 6 months of anticoagulation with a DOAC after which we will discuss with him about cessation versus long-term anticoagulation at a prophylactic dose based on how he is doing clinically at that time. Hematology/oncology INITIAL CONSULT NOTE SERVICE DATE: 04/13/2024 SERVICE TIME: 9:51 AM REASON FOR CONSULT: PE/DVT. Daughter with h/o Factor V REQUESTING PHYSICIAN: VINCE Osullivan.[employer] WORK[employer] PRIMARY CARE PHYSICIAN: No primary care provider on file. Subjective Mr. Paredes is a 84 year old male with a past medical history significant for hyperlipidemia and mitral valve prolapse who was a transfer from [facility] where he presented with shortness of breath, chest pain, and weakness. 2 days ago, the patient developed sudden onset of shoulder pain, but he has been having worsening shortness of breath for weeks. He has not been feeling well and his PCP thought he had the flu and prescribed him Tamiflu. He denies any fevers or night sweats, but admits to chills. He admits to being sedentary over the last several weeks due to him not feeling well. CTA chest on admission showing bilateral PE extending into all 5 lobar pulmonary arteries with flattening of the interventricular septum consistent with right heart strain. Narrowing of the proximal celiac artery and gallbladder sludge versus gallstone gravel. His daughter has a history of factor V. Exact details are unknown. He believes she may have been diagnosed at the time of kidney stones. He is not sure if she is on anticoagulation or not. He denies any personal history of DVT or PE. Venous Doppler showing acute nonocclusive left proximal DVT in the distal external iliac vein and common femoral vein. No evidence of DVT on the right. Patient follows regularly with a primary care provider. He has not had a colonoscopy inover 40 years. He denies any dark stool or blood in the stool. He denies any nausea, vomiting, or abdominal pain. He states he did have an abdominal issue in January, when they thought his bowels were twisted. CT abdomen and pelvis at that time did not show any evidence to suggest intra-abdominal malignancy. He did undergo diagnostic laparoscopic with no abnormal findings in his bowel. Patient did have pneumonia in January and acute bronchitis in February for which she was treated with a Medrol Dosepak and azithromycin. Patient states he has been more sedentary over the last few weeks due to him not feeling well. White blood cell count 7.9, hemoglobin 12.6, platelets 323,000. Creatinine 0.74. Testing for influenza, COVID, and RSV negative. He is currently on a heparin drip. We are asked to see the patient from a heme-onc standpoint. FUNCTIONAL STATUS: Independent PAST MEDICAL HISTORY Diagnosis Date Hyperlipidemia Mitral valve prolapse PAST SURGICAL HISTORY Procedure Laterality Date HERNIA REPAIR HX TONSILLECTOMY HX FAMILY HISTORY Problem Relation Age of Onset Ischemic Heart Disease Mother CABG Ischemic Heart Disease Father 80 [place]/ CABG Heart Failure Mother None Other 2 brothers/ 2 sisters Social History Tobacco Use Smoking status: Never Smokeless tobacco: Never Substance Use Topics Alcohol use: No Drug use: Never metoprolol tartrate, short acting, (LOPRESSOR) 25 mg tablet, Take 1 tablet by mouth twice daily., Disp: 60 tablet, Rfl: 6 Current Facility-Administered Medications Medication Dose Route Frequency heparin iv infusion 25,000 units in NaCl 0.45% 250 mL STANDARD NOMOGRAM 0-3,000 Units/hr INTRAVENOUS CONTINUOUS And heparin RATE CHANGE bolus 1,000-10,000 Units for subtherapeutic PTTAC results 1,000-10,000 Units INTRAVENOUS PRN sodium chloride 0.9 % (flush) 2-10 mL (BD POSIFLUSH) 2-10 mL INTRAVENOUS DIRECTED PRN And perflutren lipid microspheres 1.1 mg/mL 1.3 mL injection (DEFINITY) 1.3 mL INTRAVENOUS DIRECTED PRN acetaminophen 650 mg tab(s) (TYLENOL) 650 mg ORAL q 6 H PRN HYDROcodone 5 mg - acetaminophen 325 mg tablet (NORCO) 1 tablet ORAL q 6 H PRN morphine 1 mg injection 1 mg INTRAVENOUS q 4 H PRN NaCl 0.9% iv flush bag 20 mL INTRAVENOUS PRN ondansetron 4 mg tab(s) (ZOFRAN) 4 mg ORAL q 6 H PRN Or ondansetron (PF) 4 mg injection (ZOFRAN) 4 mg INTRAVENOUS q 6 H PRN keTORolac 15 mg injection (Toradol) 15 (more content not included)... [facility] CONSULT HNO ID: [id number] Author: SANYA RAMACHANDRAN MD Service: Pulmonary Disease Author Type: Physician Type: Consults Filed: 04/13/2024 15:15 Note Text: [facility] PULMONARY INITIAL CONSULT NOTE SERVICE DATE: 04/13/2024 SERVICE TIME: 9:00 AM REASON FOR CONSULT: pulmonary embolism concern for R heart strain REQUESTING PHYSICIAN: Dr. Rena Cespedes PRIMARY CARE PHYSICIAN: No primary care provider on file. HPI: Mr. Paredes is a 84 year old male with PMHx of Mitral Valve Prolapse who presented to [facility] as a transfer from [facility] ED on 04/12/24 secondary to chest pain, shortness of breath, and weakness and was admitted to . Pulmonary service was consulted for PE with right heart strain. The patient was seen and examined with his 2 granddaughters at the bedside. The patient states he developed sudden onset shoulder pain about 2 days ago. He has been struggling with shortness of breath for weeks, however. He reports he has not been feeling well. He went to see his PCP, and his PCP thought he had the flu an prescribed him Tamiflu. He denies any fever or night sweats but admits to chills prior to admission. He denies any known history of lung disease such as Asthma or COPD. He is a lifelong nonsmoker. 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 He admits to being sedentary over the last several weeks. He had some BLE pain but is unsure how long ago this was. His daughter has a history of Factor V. He denies any known personal history of VTE. He reports he is up to date on his cancer screenings. His last hospitalization was in late summer/fall of 2023 at [facility]. He has not had any surgeries since then either. CTA Chest at [facility] showed bilateral PE extending into all 5 lob pulmonary arteries, flattening of the interventricular septum consistent with right heart strain, narrowing of the proximal celiac artery, and gallbladder sludge vs gallstone gravel. PAST MEDICAL HISTORY Diagnosis Date Hyperlipidemia Mitral valve prolapse PAST SURGICAL HISTORY Procedure Laterality Date HERNIA REPAIR HX TONSILLECTOMY HX FAMILY HISTORY Problem Relation Age of Onset Ischemic Heart Disease Mother CABG Ischemic Heart Disease Father 80 [place]/ CABG Heart Failure Mother None Other 2 brothers/ 2 sisters Social History Tobacco Use Smoking status: Never Smokeless tobacco: Never Substance Use Topics Alcohol use: No Drug use: Never metoprolol tartrate, short acting, (LOPRESSOR) 25 mg tablet, Take 1 tablet by mouth twice daily., Disp: 60 tablet, Rfl: 6 Current Facility-Administered Medications Medication Dose Route Frequency heparin iv infusion 25,000 units in NaCl 0.45% 250 mL STANDARD NOMOGRAM 0-3,000 Units/hr INTRAVENOUS CONTINUOUS And heparin RATE CHANGE bolus 1,000-10,000 Units for subtherapeutic PTTAC results 1,000-10,000 Units INTRAVENOUS PRN sodium chloride 0.9 % (flush) 2-10 mL (BD POSIFLUSH) 2-10 mL INTRAVENOUS DIRECTED PRN And perflutren lipid microspheres 1.1 mg/mL 1.3 mL injection (DEFINITY) 1.3 mL INTRAVENOUS DIRECTED PRN acetaminophen 650 mg tab(s) (TYLENOL) 650 mg ORAL q 6 H PRN HYDROcodone 5 mg - acetaminophen 325 mg tablet (NORCO) 1 tablet ORAL q 6 H PRN morphine 1 mg injection 1 mg INTRAVENOUS q 4 H PRN NaCl 0.9% iv flush bag 20 mL INTRAVENOUS PRN ondansetron 4 mg tab(s) (ZOFRAN) 4 mg ORAL q 6 H PRN Or ondansetron (PF) 4 mg injection (ZOFRAN) 4 mg INTRAVENOUS q 6 H PRN oseltamivir 75 mg cap(s) (TAMIFLU) 75 mg ORAL BID keTORolac 15 mg injection (Toradol) 15 mg INTRAVENOUS q 6 H PRN Allergies As of Date: 04/12/2024 (No Known Allergies) Fully Assessed 04/12/2024 COMPLETE REVIEW OF SYSTEMS: Review of Systems Constitutional: Positive for chills. Negative for fever and weight loss. HENT: Negative for congestion and nosebleeds. Eyes: Negative for blurred vision. Respiratory: Positive for cough and sputum production. Negative for hemoptysis, shortness of breath and wheezing. Cardiovascular: Positive for chest pain. Negative for palpitations and leg swelling. Gastrointestinal: Negative for heartburn, nausea and vomiting. Musculoskeletal: Negative for myalgias. Neurological: Positive for weakness. Negative for dizziness and headaches. Objective PHYSICAL EXAM: Physical Exam Constitutional: Appearance: Normal appearance. HENT: Head: Normocephalic and atraumatic. Mouth/Throat: Mouth: Mucous membranes are moist. Eyes: Extraocular Movements: Extraocular movements intact. Cardiovascular: Rate and Rhythm: Normal rate and regular rhythm. Heart sounds: Normal heart sounds. Pulmonary: Effort: Pulmonary effort is normal. Breath sounds: Normal breath sounds. No wheezing, rhonchi or rales. Abdominal: Palpations: Abdomen is soft. Musculoskeletal: General: Normal range of anton (more content not included)... Normal [facility] ECG COMPLETEon 04-13-2024 ECG COMPLETE Ventricular Rate : 6 7 BPM Atrial Rate : 67 BPM P-R Interval : 234 ms QRS Duration : 98 ms Q-T Interval : 440 ms QTC Calculation(Bazett) : 464 ms Calculated P Bristol : 84 degrees Calculated R Bristol : -59 degrees Calculated T Bristol : 70 degrees Sinus rhythm 1st degree AV block Incomplete right bundle branch block Left anterior fascicular block Abnormal ECG No previous ECGs available Confirmed by NAVIN SHOEMAKER MD ([id number]) on 05/03/2024 12:55:02 AM NAME : ARTURO PAREDES PID : [id number] : 1940 Gender : Male Race : ORD : [id number] Procedure Date : Apr 13 2024 06:11:13 Edit Date : May 03 2024 00:55:02 Diagnosis: Sinus rhythm 1st degree AV block Incomplete right bundle branch block Left anterior fascicular block Abnormal ECG No previous ECGs available Confirmed by NAVIN SHOEMAKER MD ([id number]) on 05/03/2024 12:55:02 AM Test Reason : rt Location : [address] [place] [address] Overread By : NAVIN SHOEMAKER MD Edited By : NAVIN SHOEMAKER MD Referred By : WIA OH III Acquired by : OSEAS HALL Normal [facility] HIGH SENSITIVITY TROPONIN Io n 04-13-2024 Tropinin I.cardiac panel High sensitivity method 8.1 pg/mL Normal 0.0-54.0 [facility] Comment on above: Order Comment: Speci men Type: BLOOD SPECIMEN Ordering Facility: [facility] Address: [address] [place] [address] Performed By: #### 3 4528-0, 75126-6 #### [facility] CLIA [id number] [address] [place] [address] [place] NT-proBNP SerPl-ncon 04-13 Natriuretic peptide.B prohormone N-Terminal [Mass/Vol] 206 pg/mL Normal <450 [facility] Comment on above: Order Comment: Speci men Type: BLOOD SPECIMEN Ordering Facility: [facility] Address: [address] [place] [address] Result Comment: NT-p roBNP results of less than 300 pg/mL likely rules out acute congestive heart failure with 99% predictive value. NOTE: These cutoff points are suggested for ACUTE CHF DIAGNOSIS only Less than 50 years\X09\ Greater than 450 pg/mL 50 - 75 years\X09\\X09\ Greater than 900 pg/mL Greater than 75 years\X09\ Greater than 1800 pg/mL Performed By: #### 3 4528-0, 73771-7 #### [facility] CLIA [id number] [address] [place], [place] [address] [facility] US LEG VEIN DVT [facility] n 04-13-2024 LEG VEIN DVT [facility] Non-Invasive Vascular Laboratory [facility] Lower Extremity Venous Duplex Bilateral/Complete Date of service/time: 04/13/2024 9:48:25 AM Name: MR. ARTURO PAREDES Date of : 1940 Age: 84 years Gender: M Clinical Indication Pulmonary embolism. TECHNIQUE -------- A venous duplex ultrasound examination was performed, including grayscale imaging with compression maneuvers and color Doppler and spectral Doppler examination with augmentation maneuvers and response to respiration of the below mentioned veins. FINDINGS -------- RIGHT SIDE Distal external iliac vein Doppler: normal flow. Compression: normal. Common femoral vein Doppler: normal flow. Compression: normal. Femoral vein Doppler: normal flow. Compression: normal. Popliteal vein Doppler: normal flow. Compression: normal. Posterior tibial veins Compression: normal. Peroneal veins Compression: normal. Great saphenous vein Compression: normal. Small saphenous vein Compression: normal. Soleal vein Compression: normal. Gastrocnemius vein Compression: normal. Profunda vein Doppler: normal flow. Compression: normal. LEFT SIDE Distal external iliac vein Doppler: normal flow. Compression: abnormal. Common femoral vein Doppler: normal flow. Compression: abnormal. Femoral vein Doppler: normal flow. Compression: normal. Popliteal vein Doppler: normal flow. Compression: normal. Posterior tibial veins Compression: normal. Peroneal veins Compression: normal. Great saphenous vein Compression: normal. Small saphenous vein Compression: normal. Soleal vein Compression: normal. Gastrocnemius vein Compression: normal. External iliac vein Doppler: normal flow. Profunda vein Doppler: normal flow. Compression: normal. IMPRESSION RIGHT SIDE - DEEP VEINS Negative for acute deep vein thrombosis. RIGHT SIDE - SUPERFICIAL VEINS Negative for superficial thrombophlebitis in the great saphenous vein and small saphenous vein. LEFT SIDE - DEEP VEINS Acute non-occlusive proximal deep vein thrombosis in the distal external iliac vein and common femoral vein. Negative for acute deep vein thrombosis in the Proximal external iliac, femoral vein, popliteal vein, posterior tibial veins, peroneal veins, soleal vein, gastrocnemius veins and profunda femoral vein. LEFT SIDE - SUPERFICIAL VEINS Negative for superficial thrombophlebitis in the great saphenous vein and small saphenous vein. Technologist: Tremayne Roper Ordering physician: JONATHAN WALTERS Interpreting physician: Dav Connell MD Final CC [facility] Image : [id number] [email or web address] See Link below for Image Normal [facility] aPTT PPPon 04-13-2024 aPTT Coag (PPP) [Time] 59.2 s High 23.0-32.4 [facility] Comment on above: Order Comment: Speci men Type: BLOOD SPECIMEN Ordering Facility: [facility] Address: [address] [place] [address] Performed By: #### 3 4528-0, 31233-7 #### [facility] CLIA [id number] [address] [place] [address] [place] aPTT Coag (PPP) [Time] 79.4 s High 23.0-32.4 [facility] Comment on above: Order Comment: Speci men Type: BLOOD SPECIMEN Ordering Facility: [facility] Address: [address] [place] [address] Performed By: #### 3 4528-0, 62776-8 #### [facility] CLIA [id number] [address] [place], [place] [address] [place] aPTT Coag (PPP) [Time] 87.6 s High 23.0-32.4 [facility] Comment on above: Order Comment: Speci men Type: BLOOD SPECIMEN Ordering Facility: [facility] Address: [address] [place] [address] Performed By: #### 1 4979-9 #### [facility] CLIA [id number] [address] [place] [address] [place] APTTon 04-12-2024 aPTT Coag (Bld) [Time] 156.8 s Critically high 25.4 - 38.4 [facility] Comment on above: Result Comment: { CA LLED TO KATE WATTS BY TRR @ 2023 { READ BACK BY KATE WATTS RA @ 2019 Performed By: #### 2 16040 #### [facility],[address] [place] [address] aPTT Coag (Bld) [Time] 32.2 s Normal 25.4 - 38.4 [facility] Comment on above: Performed By: #### 2 89517 #### [facility],[address] [place] [address] 14044 Basic metabolic 2000 panelon 04-12-2024 Anion gap [Moles/Vol] 5 mmol/L Normal 5-16 [facility] Comment on above: Order Comment: Speci men Type: BLOOD SPECIMEN Ordering Facility: [facility] Address: [address] [place] [address] Performed By: #### 2 4321-2, , HSTROP #### [facility] CLIA [id number] [address] [place], [place] [address] [place] Calcium [Mass/Vol] 9.2 mg/dL Normal 8.5-10.5 [facility] Comment on above: Order Comment: Speci men Type: BLOOD SPECIMEN Ordering Facility: [facility] Address: [address] [place] [address] Performed By: #### 2 4321-2, , HSTROP #### [facility] CLIA [id number] [address] [place], [place] [address] [place] Chloride [Moles/Vol] 98 mmol/L Normal 98-107 [facility] Comment on above: Order Comment: Speci men Type: BLOOD SPECIMEN Ordering Facility: [facility] Address: [address] [place] [address] Performed By: #### 2 2, , HSTROP #### [facility] CLIA [id number] [address] [place] [address] [place] CO2 [Moles/Vol] 30 mmol/L Normal 21-32 [facility] Comment on above: Order Comment: Speci men Type: BLOOD SPECIMEN Ordering Facility: [facility] Address: [address] [place] [address] Performed By: #### 2 432-2, , HSTROP #### [facility] CLIA [id number] [address] [place] [address] [place] Creatinine [Mass/Vol] 0.79 mg/dL Normal 0.50-1.40 [facility] Comment on above: Order Comment: Speci men Type: BLOOD SPECIMEN Ordering Facility: [facility] Address: [address] [place] [address] Result Comment: Akila ents receiving either N-Acetylcysteine (NAC) or Metamizole prior to venipuncture, may have falsely depressed results. Performed By: #### 2 432-2, , HSTROP #### [facility] CLIA [id number] [address] [place] [address] [place] Creatinine and Glomerular filtration rate.predicted panel (S/P/Bld) 89 mL/min/1.73m??? Normal >=60 [facility] Comment on above: Order Comment: Yahaira bahena Type: BLOOD SPECIMEN Ordering Facility: [facility] Address: [address] [place] [address] Result Comment: Blank mated Glomerular Filtration Rate (eGFR) is calculated using the 2020 CKD-EPI creatinine equation. This equation utilizes serum creatinine, sex, and age as parameters. The creatinine assay has traceable calibration to isotope dilution-mass spectrometry. Refer to KDIGO guidelines for clinical interpretation. In patients with unstable renal function, e.g. those with acute kidney injury, the eGFR may not accurately reflect actual GFR. Performed By: #### 2 4321-2, 57251-9, HSTROP #### [facility] CLIA [id number] [address] [place] [address] [place] Glucose [Mass/Vol] 134 mg/dL High 70-100 [facility] Comment on above: Order Comment: Yahaira bahena Type: BLOOD SPECIMEN Ordering Facility: [facility] Address: [address] [place] [address] Result Comment: The [place] Diabetes Association (ADA) provides guidance for cutoff values for fasting glucose and random glucose. The ADA defines fasting as no caloric intake for at least 8 hours. Fasting plasma glucose results between 100 to 125 mg/dL indicate increased risk for diabetes (prediabetes). Fasting plasma glucose results greater than or equal to 126 mg/dL meet the criteria for diagnosis of diabetes. In the absence of unequivocal hyperglycemia, results should be confirmed by repeat testing. In a patient with classic symptoms of hyperglycemia or hyperglycemic crisis, random plasma glucose results greater than or equal to 200 mg/dL meet the criteria for diagnosis of diabetes. Reference: Standards of Medical Care in Diabetes 2016, [place] [employer] Association. Diabetes Care. 2016.39(Suppl 1). Results may be falsely elevated after the administration of Sulfapyridine. Results may be falsely depressed after the administration of Sulfasalazine. Performed By: #### 2 4321-2, 23835-7, HSTROP #### [facility] CLIA [id number] [address] [place] [address] [place] Potassium [Moles/Vol] 4.9 mmol/L Normal 3.5-5.1 [facility] Comment on above: Order Comment: Speci men Type: BLOOD SPECIMEN Ordering Facility: [facility] Address: [address] [place] [address] Performed By: #### 2 4321-2, , HSTROP #### [facility] CLIA [id number] [address] [place] [address] [place] Sodium [Moles/Vol] 133 mmol/L Low 136-145 [facility] Comment on above: Order Comment: Speci men Type: BLOOD SPECIMEN Ordering Facility: [facility] Address: [address] [place] [address] Performed By: #### 2 4321-2, , HSTROP #### [facility] CLIA [id number] [address] [place] [address] [place] Urea nitrogen [Mass/Vol] 9 mg/dL Normal 7-26 [facility] Comment on above: Order Comment: Speci men Type: BLOOD SPECIMEN Ordering Facility: [facility] Address: [address] [place] [address] Performed By: #### 2 4321-2, , HSTROP #### [facility] CLIA [id number] [address] [place] [address] [place] CBC + DIFFon 04-12-2024 Baso # 0.03 x10EE3/UL Normal 0.00 - 0.10 [facility] Comment on above: Performed By: #### 2 18391 #### [facility],[address] [place] [address] 19700 Basophils/100 WBC (Bld) 0.4 % Normal 0.0 - 2.0 [facility] Comment on above: Performed By: #### 2 37870 #### [facility],[address] [place] [address] CBC + DIFF Normal [facility] Comment on above: Result Comment: CBC- COMPLETE BLOOD COUNT Performed By: #### 2 24640 #### [facility],[address] [place] [address] EO # 0.10 x10EE3/UL Normal 0.00 - 0.50 [facility] Comment on above: Performed By: #### 2 91335 #### [facility],[address] [place] [address] Eosinophils/100 WBC (Bld) 1.1 % Normal 0.0 - 7.0 [facility] Comment on above: Performed By: #### 2 68715 #### [facility],[address] [place] [address] Erythrocyte distribution width (RBC) [Ratio] 13.8 % Normal 12.0 - 15.6 [facility] Comment on above: Performed By: #### 2 08139 #### [facility],[address] [place] [address] Hematocrit (Bld) [Volume fraction] 41.8 % Normal 40.0 - 52.0 [facility] Comment on above: Performed By: #### 2 21354 #### [facility],[address] [place] [address] Hemoglobin (Bld) [Mass/Vol] 14.2 g/dL Normal 13.0 - 17.5 [facility] Comment on above: Performed By: #### 2 54014 #### [facility],[address] [place], [place] [address] Lymph # 1.61 x10EE3/UL Normal 0.80 - 2.80 [facility] Comment on above: Performed By: #### 2 01776 #### [facility],[address] [place], [place] [address] Lymphocytes/100 WBC (Bld) 18.7 % Low 20.0 - 45.0 [facility] Comment on above: Performed By: #### 2 17683 #### [facility],[address] [place] [address] MANUAL DIFF REVIEWED Normal [facility] Comment on above: Performed By: #### 2 71549 #### [facility],[address] [place] [address] MCH (RBC) [Entitic mass] 31 pg Normal 27 - 33 [facility] Comment on above: Performed By: #### 2 39250 #### [facility],[address] [place] [address] MCHC 34 X10 3 Normal 32 - 36 [facility] Comment on above: Performed By: #### 2 40507 #### [facility],[address] [place] [address] MCV (RBC) [Entitic vol] 90 fL Normal 81 - 98 [facility] Comment on above: Performed By: #### 2 37525 #### [facility],[address] [place] [address] [place] # 0.71 x10EE3/UL Normal 0.20 - 1.00 [facility] Comment on above: Performed By: #### 2 29530 #### [facility],[address] [place] [address] MONOS % 8.3 % Normal 0.0 - 10.0 [facility] Comment on above: Performed By: #### 2 42925 #### [facility],[address] [place] [address] Morphology Ozzie (Bld) [Interp] REVIEWED Normal [facility] Comment on above: Performed By: #### 2 09456 #### [facility],[address] [place] [address] Neut # 6.14 x10EE3/UL Normal 1.50 - 7.10 [facility] Comment on above: Performed By: #### 2 29327 #### [facility],[address] [place] [address] Neutrophils/100 WBC (Bld) 71.5 % Normal 46.0 - 76.0 [facility] Comment on above: Performed By: #### 2 64418 #### [facility],[address] [place] [address]144 PLATELET 385 x10EE3/UL Normal 150 - 450 [facility] Comment on above: Performed By: #### 2 25296 #### [facility],[address] [place] [address] 84700 Platelet mean volume (Bld) [Entitic vol] 6.5 fL Normal 6.4 - 10.5 [facility] Comment on above: Result Comment: AUTO MATED DIFFERENTIAL Performed By: #### 2 46393 #### [facility],[address] [place] [address] 74597 RBC 4.63 x 10EE6/UL Normal 4.50 - 6.00 [facility] Comment on above: Performed By: #### 2 67510 #### [facility],[address] [place] [address] 51435 WBC 8.6 x 10EE3/UL Normal 4.5 - 10.8 [facility] Comment on above: Performed By: #### 2 91541 #### [facility],[address] [place] [address] CBC panel Auto (Bld)on 04-12 Erythrocyte distribution width (RBC) [Ratio] 13.2 % Normal 11.5-15.0 [facility] Comment on above: Order Comment: Speci men Type: BLOOD SPECIMEN Ordering Facility: [facility] Address: [address] [place] [address] Performed By: #### 5 8410-2 #### [facility] CLIA [id number] [facility] [place] [address] [place] Hematocrit (Bld) [Volume fraction] 41.4 % Normal 39.0-51.0 [facility] Comment on above: Order Comment: Speci men Type: BLOOD SPECIMEN Ordering Facility: [facility] Address: [address] [place] [address] Performed By: #### 5 8410-2 #### [facility] CLIA [id number] [address] [place] [address] [place] Hemoglobin (Bld) [Mass/Vol] 13.7 g/dL Normal 13.0-17.0 [facility] Comment on above: Order Comment: Speci men Type: BLOOD SPECIMEN Ordering Facility: [facility] Address: [address] [place] [address] Performed By: #### 5 8410-2 #### [facility] CLIA [id number] [address] [place] [address] [place] MCH (RBC) [Entitic mass] 30.2 pg Normal 26.0-34.0 [facility] Comment on above: Order Comment: Speci men Type: BLOOD SPECIMEN Ordering Facility: [facility] Address: [address] [place] [address] Performed By: #### 5 8410-2 #### [facility] CLIA [id number] [address] [place] [address] [place] MCHC (RBC) [Mass/Vol] 33.1 g/dL Normal 30.5-36.0 [facility] Comment on above: Order Comment: Speci men Type: BLOOD SPECIMEN Ordering Facility: [facility] Address: [address] [place] [address] Performed By: #### 5 8410-2 #### [facility] CLIA [id number] [address] [place] [address] [place] MCV (RBC) [Entitic vol] 91.4 fL Normal 80.0-100.0 [facility] Comment on above: Order Comment: Speci men Type: BLOOD SPECIMEN Ordering Facility: [facility] Address: [address] [place] [address] Performed By: #### 5 8410-2 #### [facility] CLIA [id number] [address] [place] [address] [place] Nucleated RBC (Bld) [#/Vol] 10*3/uL Normal <0.01 [facility] Comment on above: Order Comment: Speci men Type: BLOOD SPECIMEN Ordering Facility: [facility] Address: [address] [place] [address] Performed By: #### 5 8410-2 #### [facility] CLIA [id number] [address] [place], [place] [address] [place] Platelet mean volume (Bld) [Entitic vol] 8.3 fL Low 9.0-12.7 [facility] Comment on above: Order Comment: Speci men Type: BLOOD SPECIMEN Ordering Facility: [facility] Address: [address] [place] [address] Performed By: #### 5 8410-2 #### [facility] CLIA [id number] [address] [place] [address] [place] Platelets (Bld) [#/Vol] 362 10*3/uL Normal 150-400 [facility] Comment on above: Order Comment: Speci men Type: BLOOD SPECIMEN Ordering Facility: [facility] Address: [address] [place] [address] Performed By: #### 5 8410-2 #### [facility] CLIA [id number] [address] [place], [place] [address] [place] RBC (Bld) [#/Vol] 4.53 10*6/uL Normal 4.20-6.00 [facility] Comment on above: Order Comment: Speci men Type: BLOOD SPECIMEN Ordering Facility: [facility] Address: [address] [place] [address] Performed By: #### 5 8410-2 #### [facility] CLIA [id number] [address] [place] [address] [place] WBC (Bld) [#/Vol] 9.54 10*3/uL Normal 3.70-11.00 [facility] Comment on above: Order Comment: Speci men Type: BLOOD SPECIMEN Ordering Facility: [facility] Address: [address] [place] [address] Performed By: #### 5 8410-2 #### [facility] CLIA [id number] [address] [facility] CMP with eGFRon 04-12-2024 AGE 84 years Normal [facility] Comment on above: Performed By: #### 2 36430 #### [facility],[address] [place] [address]403 Albumin [Mass/Vol] 3.2 g/dL Low 3.4 - 5.0 [facility] Comment on above: Performed By: #### 2 00259 #### [facility],[address] [place] [address] 84119 Albumin/Globulin [Mass ratio] 0.7 {ratio} Low 0.9 - 1.6 [facility] Comment on above: Performed By: #### 2 13731 #### [facility],[address] [place] [address] 02679 ALK PHOS 118 U/L High 46 - 116 [facility] Comment on above: Performed By: #### 2 94598 #### [facility],[address] [place] [address] 76377 ALT [Catalytic activity/Vol] 21 U/L Normal 16 - 63 [facility] Comment on above: Performed By: #### 2 09438 #### [facility],[address] [place] [address] 43252 Anion gap [Moles/Vol] 10 mmol/L Normal 10 - 20 [facility] Comment on above: Performed By: #### 2 58034 #### [facility],[address] [place] [address] 66747 AST [Catalytic activity/Vol] 24 U/L Normal 15 - 37 [facility] Comment on above: Performed By: #### 2 06950 #### [facility],[address] [place] [address] 95409 B/C RATIO 8 ratio Normal 0 - 30 [facility] Comment on above: Performed By: #### 2 17438 #### [facility],[address] [place] [address] 52250 Bilirubin [Mass/Vol] 0.6 mg/dL Normal 0.2 - 1.0 [facility] Comment on above: Performed By: #### 2 73786 #### [facility],[address] [place] [address]87 Calcium [Mass/Vol] 8.9 mg/dL Normal 8.5 - 10.1 [facility] Comment on above: Performed By: #### 2 81744 #### [facility],[address] [place] [address] 21748 Chloride [Moles/Vol] 97 mmol/L Low 98 - 107 [facility] Comment on above: Performed By: #### 2 01274 #### [facility],[address] [place], [place] [address] CMP with eGFR Normal [facility] Comment on above: Result Comment: COMP REHENSIVE METABOLIC PANEL Performed By: #### 2 15448 #### [facility],[address] [place] [address] 18834 CO2 [Moles/Vol] 29.4 mmol/L Normal 21.0 - 32.0 [facility] Comment on above: Performed By: #### 2 75349 #### [facility],[address] [place] [address] 74648 Creatinine [Mass/Vol] 0.77 mg/dL Normal 0.70 - 1.30 [facility] Comment on above: Performed By: #### 2 81091 #### [facility],[address] [place] [address]363 GFR/1.73 sq M.predicted among non-blacks MDRD (S/P/Bld) [Vol rate/Area] mL/min/{1.73_m2} Normal 60 - 999 [facility] Comment on above: Performed By: #### 2 20257 #### [facility],[address] [place] [address] Result Comment: ACCO RDING TO THE NATIONAL KIDNEY DISEASE EDUCATION PROGRAM(NKDE), A NORMAL eGFR IS A VALUE GREATER THAN OR EQUAL TO 60 ML/MIN/1.73 SQ METERS. CHRONIC KIDNEY DISEASE: <60mL/MIN/1.73 SQ METERS KIDNEY FAILURE: <15mL/MIN/1.73 SQ METERS THIS TEST SHOULD ONLY BE USED FOR PATIENTS 18 YEARS OF AGE AND OLDER. Globulin (S) [Mass/Vol] 4.5 g/dL High 1.5 - 3.8 [facility] Comment on above: Performed By: #### 2 89621 #### [place] [address] Glucose [Mass/Vol] 108 mg/dL High 74 - 106 [facility] Comment on above: Performed By: #### 2 69041 #### [place] [address] Potassium [Moles/Vol] 4.5 mmol/L Normal 3.5 - 5.1 [facility] Comment on above: Performed By: #### 2 30102 #### [place] [address] Protein [Mass/Vol] 7.7 g/dL Normal 6.4 - 8.2 [facility] Comment on above: Performed By: #### 2 61093 #### [facility],[address] [place], [place] [address] Sodium [Moles/Vol] 132 mmol/L Low 136 - 145 [facility] Comment on above: Performed By: #### 2 97892 #### [place] [id number] Urea nitrogen [Mass/Vol] 6 mg/dL Low 7 - 18 [facility] Comment on above: Performed By: #### 2 74537 #### [place] [id number] CT ABDOMEN/PELVIS Won 2024 CT ABDOMEN/PELVIS [place] [address] [place], [place] [address] Patient: ARTURO PAREDES Phone#: : 1940 Age: 84 Gender: M Pt. Type: ER Account: [id number] Location: 2 Ordering: [facility] [place] Exam Date: 04/12/2024/12:24 Family Phys: RITCHIE FREGOSO Charge Code: [id number] Physician: Brown Order #: [id number] Dose#: 13.8 PROCEDURE: CT ABDOMEN/PELVIS WITH CONTRAST COMPARISON: None. INDICATIONS: General Feeling of Illness. TECHNIQUE: After obtaining the patient's consent, CT images were created with non-ionic intravenous contrast material. All CT scans at this facility use dose modulation, iterative reconstruction, and/or weight based dosing when appropriate to reduce radiation dose to as low as reasonably achievable. IV CONTRAST: Omnipaque 350,80ml TOTAL DOSE: 13.8 CTDIvol(mGy) FINDINGS: LIVER: Normal. No enlargement, atrophy, abnormal density, or significant focal lesion. BILIARY: Dense material layering in the gallbladder. PANCREAS: Pancreatic atrophy SPLEEN: Normal. No enlargement or focal lesion. Splenule adjacent contrast in the inferior tip of the spleen. KIDNEYS: Kidneys enhance and excrete contrast symmetrically. No hydronephrosis. Low-attenuation lesion in the right kidney, too small to characterize. ADRENALS: Normal. No mass or enlargement. AORTA/VASCULAR: No aortic aneurysm. There are atherosclerotic calcifications of the aorta and branch vessels. There is a filling defect in the left femoral vein, consistent with deep vein thrombus, series 6, image 88. Thrombus extends into the left external iliac vein. RETROPERITONEUM: Normal. No mass or adenopathy. BOWEL/MESENTERY: No bowel obstruction or dilatation. Moderate to large stool burden. Appendix is unremarkable in size and contains air. ABDOMINAL WALL: Fat containing left inguinal hernia. URINARY BLADDER: Normal. No visible focal wall thickening, lesion, or calculus. Continued Report - Page 2 of 2 Patient: ARTURO PAREDES Phone#: : 1940 Age: 84 Gender: M Pt. Type: ER Account: [id number] Location: 052 Ordering: [facility] [place] Exam Date: 04/12/2024/12:24 Family Phys: RITCHIE ZENOBIA Charge Code: [id number] Physician: Brown Order #: [id number] Dose#: 13.8 PELVIC NODES: Normal. No adenopathy. PELVIC ORGANS: Prostate is enlarged and indents the base of the bladder, it measures 5.5 x 4.5 x 5.2 cm. BONES: Diffuse bony demineralization. Disc height loss at L4-5 and L3-4. Vacuum disc phenomena at L2-3 and L4-5. There are anterior osteophytes present. There is facet arthropathy in the lower lumbar spine. LUNG BASES: Please refer to CT PE performed same day. OTHER: Negative. CONCLUSION: 1. 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 This finding is communicating to Dr. Oh by phone at 1310 on 04/12/2024. 2. Gallbladder sludge versus gallstone gravel Dictated by: Neva Carlos MD on 04/12/2024 at 13:03 Approved by: Neva Carlos MD on 04/12/2024 at 13:[address] [facility] [address] CHEST (PE PROTOCOL)on CT CHEST (PE PROTOCOL) [place] [address] Patient: ARTURO PAREDES Phone#: : 1940 Age: 84 Gender: M Pt. Type: ER Account: [id number] Location: 052 Ordering: [facility] Exam Date: 04/12/2024/12:24 Family Phys: RITCHIE FREGOSO Charge Code: [id number] Physician: Brown Order #: [id number] Dose#: 5.5 PROCEDURE: CT CHEST WITH CONTRAST FOR PE COMPARISON: None. INDICATIONS: General Feeling of Illness. TECHNIQUE: After obtaining the patient's consent, CT images were obtained with non-ionic intravenous contrast material. Multi-planar images were created to optimize visualization of vascular anatomy with MPR/MIPS and 3D imaging. All CT scans at this facility use dose modulation, iterative reconstruction, and/or weight based dosing when appropriate to reduce radiation dose to as low as reasonably achievable. IV CONTRAST: Omnipaque 350,80ml TOTAL DOSE: 5.5 CTDIvol(mGy) FINDINGS: VASCULATURE: Bilateral pulmonary emboli. Emboli are seen pulmonary arteries of the right upper, right lower, right middle, left upper and left lower lobes. AORTA: No aortic aneurysm. LUNGS: There is an azygous lobe. Respiratory motion somewhat limits the evaluation. There is atelectasis in the lower lobes. There are dependent changes. Atelectasis versus scarring in the left upper lobe. KARLA: Normal. No mass or adenopathy. MEDIASTINUM: Reactive mediastinal lymph nodes. CARDIAC: There is flattening of the interventricular septum consistent with right heart strain. There are coronary artery calcifications. PLEURA: Normal. No mass or effusion. CHEST WALL: Normal. No mass or axillary adenopathy. LIMITED ABDOMEN: Narrowing at the proximal celiac artery with poststenotic dilatation. The artery demonstrates adjacent shaped configuration. There is a small atherosclerotic plaque at the origin the celiac artery without appreciable stenosis. Hyperdense material layering in the gallbladder may represent sludge versus gallstone gravel. There is pancreatic atrophy. BONES: Degenerative changes of the spine. Anterior osteophytes are present. Continued Report - Page 2 of 2 Patient: ARTURO PAREDES Phone#: : 1940 Age: 84 Gender: M Pt. Type: ER Account: [id number] Location: [facility] Ordering: [facility] [place] Exam Date: 04/12/2024/12:24 Family Phys: RITCHIE FREGOSO Charge Code: 098588 Physician: Brown Order #: [id number] Dose#: [id number] OTHER: Negative. CONCLUSION: 1. Bilateral pulmonary emboli extending to all 5 lobe pulmonary arteries. 2. Flattening of the interventricular septum consistent with right heart strain. This report was communicated in person to Dr. Oh at the dictation time shown below 3. Narrowing at the proximal celiac artery, correlate for median arcuate ligament compression syndrome. 4. Gallbladder sludge versus gallstone gravel. Dictated by: Neva Carlos MD on 04/12/2024 at 12:53 Approved by: Neva Carlos MD on 04/12/2024 at 13:03 Normal [facility] D-DIMER, QUANTITATIVEon 02-0 D-DIMER QUANT 962 ng/ml High 0 - 230 [facility] Comment on above: Performed By: #### [id number] #### [facility],[address] [place] [address] [id number] D-DIMER, QUANTITATIVE Normal [facility] Comment on above: Result Comment: TENISHA T D-DIMER Performed By: #### [id number] #### [facility],[address] [place] [address] [id number] ED MED ADMINISTRATION DETAIL on 04-12-2024 ED MED ADMINISTRATION DETAIL Stamp Presser Medication Administration Record [address] [place] [address] [id number] 04/12/2024 Patient: ARTURO PAREDES Sex: Male : 1940 Age: 84y MEASUREMENTS: Wt: 70.8 kg, Ht/Edinson: 67.0 in, BMI: 24.43 ALLERGIES: No known drug allergies Medication Ordered Medication Administration Date/Time 1 of 5 Stamp Presser Medication Ordered Medication Administration Date/Time heparin Drip IV 13:04/12 heparin Drip IV (DVT/PE) 50986jwgdc/250ml Premix Started (DVT/PE) 34278 units started in bag#1 250 mL at 1300 unit/hr via Site# 1. 13:04/12/2024 10732uhvuo/250ml Allergies verified and confirmed 5 rights. Via IV pump. IV patency Denny Sellers R.N. Premix 77882 units established. IV site checked: no pain, redness, or swelling. IV Not Scanned at 18 unit/kg/hr flushed thoroughly pre-medication administration. Information (1273.69 unit/hr) reviewed with patient and family including reason for taking this (HIGH ALERT medication, signs of allergic reaction and precautions. Verbalizes MEDICATION, NOW understanding. - 13:18 Denny Sellers R.N. x1, Refer to Heparin Nomogram for 04/12 Medication Co-sign: Verified dosage, concentration Dosing/Titration) and rate. - 13:18 Jimena Olvera R.N. 20:31 0203 Medication Rate Changed: bag #1 decreased to 0 unit/hr via IV pump. Confirmed 5 Rights. IV patency established. IV site checked: no pain, redness, or swelling. (Verbal order by Wai Oh D.O.) (Pause for 1 hr due to ptt results.) - 20:31 Nick BalderasNChel 21:27 02 Medication Rate Changed: bag #1 increased to 1100 unit/hr via IV pump. Confirmed 5 Rights. IV patency established. IV site checked: no pain, redness, or swelling. (Verbal order by Wai Oh D.O.) (Increased per protocol.) - 21:39 Jericho Rogel RChelNChel 21:29 04/12 Medication Continued: upon transfer at the rate of 1100 unit/hr. 200 mL remaining in bag #1. IV patency established. IV site checked: no pain, redness, or swelling. - 21:50 Jericho Rogel R.N. 2 of 5 Stamp Presser Medication Ordered Medication Administration Date/Time Order Comments: 12:46 04/12/2024: (Max initial rate 2500 units/ hr Roun d to near est 50-1 00uni ts) Marlon iraheta D.O. Heparin IVP 80 13:11 04/12 Heparin IVP 5660.83 unit given via Site# 1. Allergies Given unit/kg (5660.83 verified and confirmed 5 rights. IV patency established. IV site 13:11 04/12/2024 unit) (NOW x1, checked: no pain, redness, or swelling. IV flushed thoroughly Denny Sellers R.N. Refer to Heparin pre-medication administration. IVP given by nurse. Information Scanned Nomogram for reviewed with patient and family including reason for taking this Dosing/Titration, medication, signs of allergic reaction and precautions. Verbalizes HIGH ALERT understanding. Medication Wastage: 4339.17 unit wasted. - 13:13 MEDICATION, Denny Sellers R.N. Round to nearest 50-100 units) 13:11 04/12 Medication Co-sign: Verified dosage, concentration and rate. - 13:13 Xavier Young R.N. 3 of 5 Stamp Presser Medication Ordered Medication Administration Date/Time Order Comments: 12:46 04/12/2024: (Car diac Max dose 4000 units DVT/ PE Max dose 8750 units) Marlon iraheta D.O. HYDROmorphone 14:08 04/12 HYDROmorphone (Dilaudid) IVP 0.5 mg given via Given (Dilaudid) IVP 0.5 Site# 2. Allergies verified and confirmed 5 rights. IV patency 14:08 04/12/2024 mg (NOW x1, HIGH established. IV site checked: no pain, redness, or swelling. IV Denny Sellers, R.N. ALERT flushed thoroughly pre-medication administration. IVP given by Scanned MEDICATION) nurse. Information reviewed with patient and family including reason for taking this medication, signs of allergic reaction and precautions. Verbalizes understanding. Medication Wastage: 0.5 mg wasted. - 14:11 Denny Sellers, R.N. 14:40 04/12 Medication Response: Pain is gone now. Symptoms have improved. The patient feels better. 14:40 04/12/2024. RR: 16. Pain level now 0/10. - 16:38 Denny Sellers, R.N. 4 of 5 Stamp Presser Medication Ordered Medication Administration Date/Time Zofran IVP 4 mg 14:05 04/12 Zofran IVP 4 mg given via Site# 2. Allergies verified Given (NOW x1) and confirmed 5 rights. IV patency established. IV site checked: no 14:05 04/12/2024 pain, redness, or swelling. IV flushed thoroughly pre-medication Denny Sellers, R.N. administration. IVP given by nurse. Information reviewed with Scanned patient and family including reason for taking this medication, signs of allergic reaction and precautions. Verbalizes understanding. - 14:08 Denny Sellers, R.N. HYDROmorphone 19:35 04/12 HYDROmorphone (Dilaudid) IVP 0.5 mg given via Given (Dilaudid) IVP 0.5 Site# 2. Allergies verified and confirmed 5 rights. IV patency 19:35 04/12/2024 mg (NOW x1, HIGH es (more content not included)... Normal [facility] ED NURSES CLINICAL NOTEon ED NURSES CLINICAL NOTE Nurse Narrative Nurse Clinical Narrative [facility] [address] [place] [address] [phone] 04/12/2024 Patient: ARTURO PAREDES Sex: Male : 1940 Age: 84y Disposition: Transfer to [facility] Disposition Decision Time: 14:17 04/12/2024 Departure Time: 21:29 04/12/2024 TRIAGE Arrived by private vehicle. Historian: patient. Accompanied by family. Patient has a primary care physician. Primary physician (Dr. Fregoso). Triage time: 10:24 04/12/2024. Acuity: LEVEL 3. Chief Complaint: SHORTNESS OF BREATH. Onset. (about 1 week, started Zithromax and Tamiflu on 04/09). The patient has had fever, chills, a cough and back pain. SEPSIS SCREEN: NEGATIVE. SIRS criteria negative. No possible sources of infection. -- 10:04/12/24 JACKSON Sellers R.N. 10:04/12/24. BP: 150/91 taken on right arm, while sitting. MAP: 111. HR: 99. RR: 18. O2 saturation: 95% on room air. Temperature: 99.1 F (temporal). Pain level now 310. -- 10:04/12/24 JACKSON Sellers R.N. Measurements: 10:04/12/24 Wt: 70.8 kg, Ht/Edinson: 67.0 in, BMI: 24.43 -- 10:04/12/24 JACKSON Sellers R.N. Medications: azithromycin 250 mg tablet: 250 mg once a day . (Take 1 tablet daily on days 2-5, started on 04/09.) -- 10:04/12/24 JACKSON Sellers R.N. 1 of 7 Nurse Narrative oseltamivir 75 mg capsule: 75 mg twice a day . (Started on 04/09/24) -- 10:04/12/24 JACKSON Sellers R.N. Allergies: no known drug allergies -- 10:04/12/24 JACKSON Sellers R.N. Problems: Mitral Valve Prolapse -- 10:04/12/24 JACKSON Sellers R.N. 10:04/12/24. Preferred pharmacy ([facility]). -- 10:04/12/24 JACKSON Sellers R.N. ADDITIONAL SURGERIES: Hernia Repair -- 10:04/12/24 JACKSON Sellers R.N. Tonsillectomy -- 10:04/12/24 JACKSON Sellers R.N. Bowel Surgery -- 10:04/12/24 JACKSON Sellers R.N. History 10:04/12/24. SOCIAL HX: Never smoker. No alcohol use or drug use. The patient has not traveled outside the [place] Infectious disease exposure: No infectious disease exposure. ABUSE ASSESSMENT: The patient answered yes to the question(s) Do you feel safe in your home? and no to the question(s) Are you afraid to go home?. SELF HARM ASSESSMENT: Self harm assessment was performed. The patient answered no to the question(s) Have you recently felt down, depressed, or hopeless? and Do you have thoughts of harming or killing yourself?. FALL RISK ASSESSMENT: Fall risk assessment completed. Risk factors identified include patient age greater than 65 years. Fall interventions initiated. Bed in low position. Brakes on. Patient identified as a fall risk by ID band. -- 10:04/12/24 JACKSON Sellers R.N. 2 of 7 Nurse Narrative Interventions 10:04/12/24. Identification band on patient. Advanced care plan discussed with patient. Patient does not have advanced directive. -- 10:04/12/24 JACKSON Sellers R.N. PHYSICAL ASSESSMENT 10:04/12/24. Ambulatory to room. (Pt c/o cough, congestion, fever and chills x two weeks, c/o SOB x one week. Pt reports starting Zithromax and Tamiflu on 04/09, reports no relief in symptoms.). GENERAL / NEURO / PSYCH: Alert. Oriented X 4. Appears in no acute distress. RESPIRATORY: No respiratory distress. Respirations not labored. Breath sounds within normal limits. CVS: Cardiac murmur(s) present. ( Denies chest pain.). Capillary refill less than 2 seconds. GI / : Abdomen soft and nontender. Bowel sounds within normal limits. SKIN: Skin is warm and dry. -- 11:19 04/12/24 JACKSON Sellers R.N. NURSING PROGRESS NOTES 10:30 04/12/24. Patient identifiers checked. Call light placed in reach. Side rails up x 1. Bed placed in lowest position. Brakes of bed on. ( Family at the bedside.). -- 11:19 04/12/24 JACKSON Sellers R.N. 10:50 04/12/24. Site #1 started via IV in the left antecubital space with a 20g angiocath with aseptic technique and good blood return; 1 attempt. Blood drawn: rainbow set and caruso tube(s). Saline lock flushed with 5 mL saline. -- 10:55 04/12/24 JACKSON Sellers R.N. 10:54 04/12/24. 12-LEAD EKG: EKG time: (10:35 04/12/2024). 12-Lead EKG was performed by mi and shown to the ED physician. -- 10:54 04/12/24 JACKSON Contreras 11:30 04/12/24. Rounding: Plug ins: checked status of equipment in use; located all cords, tubes, and lines to prevent fall hazard. Set expectations: advised patient of rounding protocol timing and asked if they needed anything else at this time. -- 16:30 04/12/24 JACKSON Sellers R.N. 12:24 04/12/24. Patient transported to CT. -- 12:24 04/12/24 JACKSON Sellers R.N. 12:45 04/12/24. Rounding: Plug ins: checked status of equipment in use; located all cords, tubes, and lines to prevent fall hazard. Set expectations: advised patient of rounding protocol timing an (more content not included)... Normal [facility] ED ORDER SHEET (CPOE ONLY)on 04-12-2024 ED ORDER SHEET (CPOE ONLY) Order Sheet Order Sheet [facility] [address] [place] [address] [phone] 04/12/2024 Patient: ARTURO PAREDES Sex: Male : 1940 Age: 84y MEASUREMENTS: Wt: 70.8 kg, Ht/Edinson: 67.0 in, BMI: 24.43 ALLERGIES: No known drug allergies MEDICATION/IV/DRIP/FLUID ORDERS Order Description Priority Entered Acknowledged Completed heparin Drip IV (DVT/PE) 12:46 04/12/2024 13:03 13:18 70490yfuix/250ml [id number] Wai Oh, 04/12/2024 04/12/2024 units at 18 unit/kg/hr (1273.69 D.O. Denny Eastep, Denny Eastep, unit/hr) (HIGH ALERT R.N. R.N. MEDICATION, NOW x1, Refer to Heparin Nomogram for Dosing/Titration) Order Comments: 12:46 04/12/2024: (Max initial rate 2500 units/hr Round to nearest 50-100units) Wai Oh D.O. Heparin IVP80 unit/kg (5660.83 12:46 04/12/2024 13:03 13:13 unit) (NOW x1, Refer to Heparin Wai Oh, 04/12/2024 04/12/2024 Nomogram for Dosing/Titration, Warren.Denny Ross, HIGH ALERT MEDICATION, R.N. R.N. Round to nearest 50-100 units) Order Comments: 12:46 04/12/2024: (Cardiac Max dose 4000 units DVT/PE Max dose 8750 units) Wai Oh D.O. HYDROmorphone (Dilaudid) 13:57 04/12/2024 13:58 14:11 IVP0.5 mg (NOW x1, HIGH Wai Oh, 04/12/2024 04/12/2024 ALERT MEDICATION) Denny Pugh, R.N. R.N. 1 of 5 Order Sheet Zofran IVP4 mg (NOW x1) 13:57 04/12/2024 13:58 14:08 Wai Oh, 04/12/2024 04/12/2024 Warren.ODenny Bae, R.N. R.N. Reason for ordering with alerts: Benefits outweigh risks --13:57 04/12/2024 Wai Oh D.O. HYDROmorphone (Dilaudid) 19:32 04/12/2024 19:32 19:35 IVP0.5 mg (NOW x1, HIGH Wai Oh, 04/12/2024 04/12/2024 ALERT MEDICATION) Modesta Rogel RAle Rogel, R.NChel Reason for ordering with alerts: Benefits outweigh risks --19:32 04/12/2024 Wai Oh D.O. LAB ORDERS Order Description Priority Entered Acknowledged Collected Completed CBC w Diff Stat Stat 10:04/12/2024 10:30 04/12/2024 10:53 04/12/2024 Denny Pal Lucas Eastep, D.O. R.N. R.N. CMP Stat Stat 10:04/12/2024 10:30 04/12/2024 10:53 04/12/2024 Denny Pal Lucas Eastep, D.O. R.N. R.N. Lipase Stat Stat 10:27 04/12/2024 10:30 04/12/2024 10:54 04/12/2024 Denny Pal Lucas Eastep, D.O. R.N. R.N. Lactate, Serum Stat Stat 10:27 04/12/2024 10:30 04/12/2024 10:54 04/12/2024 Denny Pal Lucas Eastep, D.O. R.N. R.N. D-Dimer Stat Stat 10:27 04/12/2024 10:30 04/12/2024 10:54 04/12/2024 2 of 5 Order Sheet Denny Pal Lucas Eastep, D.O. R.N. R.N. BNP Stat Stat 10:27 04/12/2024 10:30 04/12/2024 10:53 04/12/2024 Denny Pal Lucas Eastep, D.O. R.N. R.N. Troponin-I Stat Stat 10:27 04/12/2024 10:30 04/12/2024 10:54 04/12/2024 Denny Pal Lucas Eastep, D.O. R.N. R.NChel EKG - ED Stat Stat 10:27 04/12/2024 10:30 04/12/2024 10:38 04/12/2024 Denny Pal Lauren Holmes D.O. R.N. Urinalysis Stat Stat 10:27 04/12/2024 10:30 04/12/2024 12:04 04/12/2024 Denny Pal Lucas Eastep, D.O. R.N. RAle Flu Swab (Influenzae Stat 10:27 04/12/2024 10:30 04/12/2024 10:54 04/12/2024 AAg) Stat Denny Pal Lucas Eastep, D.O. R.NChel R.NChel PTT Stat Stat 13:04 04/12/2024 13:04 04/12/2024 13:04 04/12/2024 Denny Eastep, Denny Eastep, Denny Eastlandon, R.N. R.N. R.N. Verbal Order, Auth by: Wai Oh D.O. Read back and verified PT with INR Stat Stat 13:04 04/12/2024 13:04 04/12/2024 13:04 04/12/2024 3 of 5 Order Sheet Denny Sellers, Denny Eastlandon, Denny Eastlandon, R.N. R.N. R.N. Verbal Order, Auth by: Wai Oh D.O. Read back and verified PTT Stat Stat 19:12 04/12/2024 19:12 04/12/2024 19:24 04/12/2024 Clara Balderas R.N. Seth Lapp, R.NChel Per Protocol, Auth by: Wai Oh D.O. DIAGNOSTIC STUDY ORDERS Order Description Priority Entered Acknowledged Completed CT Chest PE Study Stat Stat 12:03 04/12/2024 12:04 12:04 Wai Oh 04/12/2024 04/12/2024 Denny Pugh R.NChel R.NChel Reason for Study: Chest Pain CT ABD/PEL w Cont Stat Stat 12:03 04/12/2024 12:04 12:04 Wai Oh, 04/12/2024 04/12/2024 Denny Pugh R.NChel R.NChel Reason for Study: Abdominal Pain STAFF ORDERS Order Description Priority Entered Acknowledged Collected Completed IV Saline Lock 10:27 04/12/2024 10:30 04/12/2024 10:54 04/12/2024 Denny Pal Lucas Eastep, D.O. R.NChel RChelNChel 4 of 5 Order Sheet [Electronically signed by Wai Oh D.O. (04/12/2024 21:14 EST)] 5 of 5 Normal [facility] ED PHYSICIAN CLINICAL REPORT on 04-12-2024 ED PHYSICIAN CLINICAL REPORT Narrative Physician Clinical Narrative [address] [place] [address] [phone] 04/12/2024 Patient: ARUTRO PAREDES Sex: Male : 1940 Age: 84y Disposition: Transfer to [facility] Disposition Decision Time: 14:17 04/12/2024 Measurements Wt: 70.8 kg, Ht/Edinson: 67.0 in, BMI: 24.43 Initial Vital Sign Measured Time BP MAP HR RR O2Sat ETCO2 Temp Pain GCS RTS 10:25 04/12/2024 150/91 111 99 18 95% RA 99.1 F 3 Time Seen: 10:17 04/12/2024. Arrived- By private vehicle. Historian- patient. Independent historian- family. HISTORY OF PRESENT ILLNESS Chief Complaint: DYSPNEA. This started today Patient came in he was at [facility] and was vomiting up dark emesis according to the patient. Nobody witnessed this. He denied any chest pain or shortness breath he did have nausea vomiting. and is still present. The dyspnea is described as moderate. No cough, sputum production, fever or chills. The patient has had dyspnea on exertion and chest pain. REVIEW OF SYSTEMS SKIN: No skin rash. : No difficulty with urination. NEUROLOGICAL: No headache. GI: No nausea. THROAT: No sore throat. EYES: No eye irritation. CONSTITUTIONAL: The patient has not had weight loss. PAST HISTORY See nurses notes. 1 of 18 Narrative Mitral Valve Prolapse Surgeries: Bowel Surgery Hernia Repair Tonsillectomy Medications: azithromycin 250 mg tablet: 250 mg once a day . (Take 1 tablet daily on days 2-5, started on 04/09.) oseltamivir 75 mg capsule: 75 mg twice a day . (Started on 04/09/24) Allergies: no known drug allergies SOCIAL HISTORY Never smoker. No alcohol use. Resides in a skilled nursing. ADDITIONAL NOTES The nursing notes have been reviewed. PHYSICAL EXAM Appearance: Alert. No acute distress. Eyes: Pupils equal, round and reactive to light. Eyes normal inspection. ENT: Ears normal. Nose normal. Pharynx normal. Neck: Normal inspection. No jugular venous distention. CVS: Normal heart rhythm and rate. Respiratory: No respiratory distress. Abdomen: Soft and nontender. No organomegaly. Back: Normal inspection. Rectal: Heme-positive stool. (POC test reference range: negative). Rectal exam nontender. Skin: Skin warm and dry. Normal skin color. Normal skin turgor. Extremities: Extremities exhibit normal ROM. Neuro: Oriented X 3. No motor deficit. 2 of 18 Narrative LABS, X-RAYS, AND EKG Laboratory Tests: CBC + DIFF Final LADAN: 04/12/2024 10:50:00 EST MsgRcvd: 04/12/2024 11:25 EST Lab Test Result Reference Status Received Comments 04/12/2024 11:25 CBC-COMPLETE CBC + DIFF Final EST BLOOD COUNT 04/12/2024 11:25 WBC 8.6 x 10/UL 4.5 - 10.8 Final EST 04/12/2024 11:25 RBC 4.63 x 10/UL 4.50 - 6.00 Final EST 04/12/2024 11:25 HEMOGLOBIN 14.2 g/dl 13.0 - 17.5 Final EST 04/12/2024 11:25 HEMATOCRIT 41.8 % 40.0 - 52.0 Final EST 04/12/2024 11:25 MCV 90 fl 81 - 98 Final EST 04/12/2024 11:25 MCH 31 pg 27 - 33 Final EST 04/12/2024 11:25 MCHC 34 X10 3 32 - 36 Final EST 04/12/2024 11:25 RDW/CV 13.8 % 12.0 - 15.6 Final EST 04/12/2024 11:25 PLATELET 385 x10/UL 150 - 450 Final EST 3 of 18 Narrative 04/12/2024 11:25 AUTOMATED MPV 6.5 fl 6.4 - 10.5 Final EST DIFFERENTIAL 04/12/2024 11:25 NEUT % 71.5 % 46.0 - 76.0 Final EST 18.7 % 04/12/2024 11:25 LYMPH % 20.0 - 45.0 Final Below low normal EST 04/12/2024 11:25 MONOS % 8.3 % 0.0 - 10.0 Final EST 04/12/2024 11:25 EO % 1.1 % 0.0 - 7.0 Final EST 04/12/2024 11:25 BASO % 0.4 % 0.0 - 2.0 Final EST 04/12/2024 11:25 Lymph # 1.61 x10/UL 0.80 - 2.80 Final EST 04/12/2024 11:25 Neut # 6.14 x10/UL 1.50 - 7.10 Final EST 04/12/2024 11:25 [place] # 0.71 x10/UL 0.20 - 1.00 Final EST 04/12/2024 11:25 EO # 0.10 x10/UL 0.00 - 0.50 Final EST 04/12/2024 11:25 Baso # 0.03 x10/UL 0.00 - 0.10 Final EST 04/12/2024 11:25 MANUAL DIFF REVIEWED Final EST 04/12/2024 11:25 MORPHOLOGY REVIEWED Final EST CMP with eGFR Final Narrative LADAN: 04/12/2024 10:50:00 EST MsgRcvd: 04/12/2024 11:30 EST Lab Test Result Reference Status Received Comments COMPREHENSIVE 04/12/2024 CMP with eGFR Final METABOLIC 11:30 EST PANEL 132 mmol/l 04/12/2024 SODIUM 136 - 145 Final Below low normal 11:30 EST 04/12/2024 POTASSIUM 4.5 mmol/L 3.5 - 5.1 Final 11:30 EST 97 mmol/L 04/12/2024 CHLORIDE 98 - 107 Final Below low normal 11:30 EST 04/12/2024 CO2 29.4 mmol/L 21.0 - 32.0 Final 11:30 EST 108 mg/dl 04/12/2024 GLUCOSE Above high 74 - 106 Final 11:30 EST normal 6 mg/dl 04/12/2024 BUN 7 - 18 Final Below low normal 11:30 EST 04/12/2024 CREATININE 0.77 mg/dl 0.70 - 1.30 Final 11:30 EST 04/12/2024 AST/SGOT 24 U/L 15 (more content not included)... Normal [facility] ED SUPER BILLon 04-12-2024 ED SUPER BILL [place] [address] [facility] [place] [address] [phone] 04/12/2024 Patient: ARTURO PAREDES Sex: Male : 1940 Age: 84y Facility Professional Category Item Description Code Code Quantity Fee Total Nurse/E/M EMERGENCY 589749 1 $0.00 $0.00 DEPT VISIT HIGH SEVERITYFUNCJ (73780-41) Nurse/IV/IM/Infusions Drip/IVPB 229939 7 $0.00 $0.00 additional hour (70109) Nurse/IV/IM/Infusions Drip/IVPB initial 621789 1 $0.00 $0.00 (90114) Nurse/IV/IM/Infusions IVP additional 354927 2 $0.00 $0.00 push (04081) Nurse/IV/IM/Infusions IVP initial (09239) 998203 1 $0.00 $0.00 Nurse/IV/IM/Infusions IVP same med 793106 1 $0.00 $0.00 (31 min apart) (33195) Grand $0.00 Total Providers 1 of 2 [facility] Wai Oh D.O. Chief Complaint DYSPNEA. Principal Diagnosis Acute nontraumatic pain. Acute dyspnea. Acute pulmonary embolism with acute cor pulmonale. ICD-10 Codes I26.09: Other pulmonary embolism with acute cor pulmonale R52: Pain, unspecified R06.09: Other forms of dyspnea 2 of 2 [facility] ED VISIT SUMMARYon ED VISIT SUMMARY Visit Overview Visit Overview [place] [address] [place] [address] [phone] 04/12/2024 Patient: ARTURO PAREDES Sex: Male : 1940 Age: 84y 04/12/2024 09:52 PM EST ED Arrival:10:21 04/12/2024 EST Status: Recent Travel:no Language:Undetermined Adv Directive:No Isolation Status: Ethnicity:N Fall Risk:risk Infectious Disease Exposure:no Measurements:5'7 / 170.2 Self-Harm Status:risk Sepsis Screen:negative cm 156.0 lb / 70.8 kg Chief Complaint:SHORTNESS OF BREATH, (about 1 week, started Zithromax and Tamiflu on 04/09), and (Dr. Fregoso) ALLERGIES No Known Drug Allergies HOME MEDICATIONS azithromycin 250 mg tablet: 250 mg once a day . (Take 1 tablet daily on days 2-5, started on 04/09.) oseltamivir 75 mg capsule: 75 mg twice a day . (Started on 04/09/24) PAST MEDICAL HISTORY / PROBLEMS 1 of 4 Visit Overview Mitral Valve Prolapse See nurses notes PAST SURGICAL HISTORY Bowel Surgery Hernia Repair Tonsillectomy SOCIAL HISTORY Smoking status: No Alcohol use: No Drug use: No ED COURSE MEDICATIONS GIVEN IN EMERGENCY DEPARTMENT 13:11 04/12/24 Heparin IVP 5660.83 unit 13:17 04/12/24 heparin Drip IV (DVT/PE) 44210ihnxn/250ml Premix 76310 units 1300 unit/hr 14:05 04/12/24 Zofran IVP 4 mg 14:08 04/12/24 HYDROmorphone (Dilaudid) IVP 0.5 mg 19:35 04/12/24 HYDROmorphone (Dilaudid) IVP 0.5 mg IV SITE INFORMATION 10:50 04/12/24 Site #1 left AC, 20g. Saline lock. 14:06 04/12/24 Site #2 right hand, 22g. Saline lock. INTAKE OUTPUT REASSESMENT (most recent) 10:30 04/12/24. Ambulatory to room. (Pt c/o cough, congestion, fever and chills x two weeks, c/o SOB x one week. Pt reports starting Zithromax and Tamiflu on 04/09, reports no relief in symptoms.). GENERAL / NEURO / PSYCH: Alert. Oriented X 4. Appears in no acute distress. RESPIRATORY: No respiratory distress. Respirations not labored. Breath sounds within normal limits. CVS: Cardiac murmur(s) present. ( Denies chest pain.). Capillary refill less than 2 seconds. GI / : Abdomen soft and nontender. Bowel sounds within normal limits. SKIN: Skin is warm and dry. 2 of 4 Visit Overview VITAL SIGNS First Vitals Last Vitals Temp 10:25 04/12/24 99.1 F Temp 21:24 04/12/24 BP 10:25 04/12/24 150/91 BP 21:24 04/12/24 138/85 HR 10:25 04/12/24 99 HR 21:24 04/12/24 78 RR 10:25 04/12/24 18 RR 21:24 04/12/24 O2 Sat 10:04/12/24 95% RA O2 Sat 21:24 04/12/24 Pain 10:25 04/12/24 3 Pain 21:24 04/12/24 ETCO2 10:25 04/12/24 ETCO2 21:24 04/12/24 GCS 10:25 04/12/24 GCS 21:24 04/12/24 RTS 10:25 04/12/24 RTS 21:24 04/12/24 PROCEDURES NURSING INTERVENTIONS LABS / STUDIES LABS / STUDIES ORDERED BNP CBC w Diff CMP CT ABD/PEL w Cont CT Chest PE Study D-Dimer EKG - ED Flu Swab (Influenzae AAg) Lactate, Serum Lipase PT with INR PTT PTT Troponin-I Urinalysis LABS - ABNORMAL RESULTS APTT PTT 156.8 sec (HH) 3 of 4 Visit Overview CLINICAL IMPRESSION ACUTE DYSPNEA ACUTE NONTRAUMATIC PAIN ACUTE PULMONARY EMBOLISM WITH ACUTE COR PULMONALE 4 of 4 Normal [facility] ED VITALS FLOW SHEETon 04-12 ED VITALS FLOW SHEET Vitals Vital Sign Flow Sheet [address] [place] [address] [phone] 04/12/2024 Patient: ARTURO PAREDES Sex: Male : 1940 Age: 84y Measurements Wt: 70.8 kg, Ht/Edinson: 67.0 in, BMI: 24.43 Measured Time BP MAP HR RR O2Sat ETCO2 Temp Pain GCS RTS 21:24 04/12/2024 138/85 92 78 21:16 04/12/2024 73 99% 21:09 04/12/2024 131/72 82 72 20:54 04/12/2024 111/67 75 73 20:51 04/12/2024 73 97% 20:46 04/12/2024 73 97% 20:41 04/12/2024 74 97% 20:39 04/12/2024 113/71 83 73 20:36 04/12/2024 73 97% 20:31 04/12/2024 72 97% 20:26 04/12/2024 74 98% 20:24 04/12/2024 133/74 85 72 20:21 04/12/2024 74 98% 20:16 04/12/2024 74 96% 20:09 04/12/2024 113/71 83 79 1 of 6 Vitals Measured Time BP MAP HR RR O2Sat ETCO2 Temp Pain GCS RTS 20:06 04/12/2024 73 96% 20:01 04/12/2024 75 97% 19:56 04/12/2024 75 96% 19:54 04/12/2024 115/67 83 74 19:51 04/12/2024 75 96% 19:46 04/12/2024 79 95% 19:41 04/12/2024 78 95% 19:39 04/12/2024 130/73 95 79 19:36 04/12/2024 80 97% 19:26 04/12/2024 81 97% 19:24 04/12/2024 123/69 92 77 19:21 04/12/2024 77 97% 19:16 04/12/2024 78 98% 19:11 04/12/2024 79 98% 19:08 04/12/2024 126/74 85 77 19:06 04/12/2024 83 98% 19:01 04/12/2024 79 97% 18:56 04/12/2024 79 98% 18:54 04/12/2024 122/68 86 77 18:51 04/12/2024 79 98% 18:46 04/12/2024 77 99% 18:41 04/12/2024 79 99% 18:39 04/12/2024 127/73 82 80 18:36 04/12/2024 80 99% 18:31 04/12/2024 82 98% 2 of 6 Vitals Measured Time BP MAP HR RR O2Sat ETCO2 Temp Pain GCS RTS 18:26 04/12/2024 80 98% 18:24 04/12/2024 121/71 87 82 18:21 04/12/2024 79 97% 18:16 04/12/2024 77 98% 18:11 04/12/2024 79 98% 18:09 04/12/2024 117/76 87 78 18:06 04/12/2024 79 98% 18:01 04/12/2024 76 98% 17:56 04/12/2024 78 98% 17:54 04/12/2024 117/71 86 78 17:51 04/12/2024 76 98% 17:46 04/12/2024 75 100% 17:41 04/12/2024 79 99% 17:39 04/12/2024 134/77 92 82 17:31 04/12/2024 77 98% 17:26 04/12/2024 75 98% 17:24 04/12/2024 118/69 82 74 17:21 04/12/2024 78 98% 17:16 04/12/2024 75 98% 17:11 04/12/2024 82 96% 17:09 04/12/2024 114/70 78 75 17:06 04/12/2024 73 98% 17:01 04/12/2024 74 98% 16:56 04/12/2024 72 98% 16:54 04/12/2024 118/63 72 74 3 of 6 Vitals Measured Time BP MAP HR RR O2Sat ETCO2 Temp Pain GCS RTS 16:51 04/12/2024 73 98% 16:46 04/12/2024 73 98% 16:41 04/12/2024 76 98% 16:38 04/12/2024 122/67 76 71 16:36 04/12/2024 74 97% 16:31 04/12/2024 72 97% 16:26 04/12/2024 73 97% 16:24 04/12/2024 102/77 79 75 16:21 04/12/2024 73 96% 16:16 04/12/2024 75 97% 16:11 04/12/2024 76 96% 16:09 04/12/2024 119/70 80 74 16:06 04/12/2024 76 97% 16:01 04/12/2024 79 97% 15:56 04/12/2024 77 96% 15:54 04/12/2024 123/65 75 82 15:51 04/12/2024 77 97% 15:46 04/12/2024 81 96% 15:41 04/12/2024 79 96% 15:39 04/12/2024 119/63 81 76 15:36 04/12/2024 76 97% 15:31 04/12/2024 79 97% 15:26 04/12/2024 79 96% 15:23 04/12/2024 108/66 80 77 15:21 04/12/2024 81 96% 4 of 6 Vitals Measured Time BP MAP HR RR O2Sat ETCO2 Temp Pain GCS RTS 15:16 04/12/2024 81 96% 15:11 04/12/2024 79 96% 15:08 04/12/2024 110/61 78 80 15:06 04/12/2024 81 96% 15:01 04/12/2024 81 96% 14:56 04/12/2024 83 96% 14:54 04/12/2024 122/67 81 82 14:51 04/12/2024 82 97% 14:46 04/12/2024 82 96% 14:41 04/12/2024 88 96% 14:40 04/12/2024 16 0 14:38 04/12/2024 122/70 83 86 14:36 04/12/2024 86 96% 14:31 04/12/2024 88 97% 14:26 04/12/2024 89 97% 14:23 04/12/2024 119/74 89 87 14:21 04/12/2024 89 96% 14:16 04/12/2024 89 96% 14:11 04/12/2024 93 93% 14:11 04/12/2024 118/72 97 94 14:01 04/12/2024 95 94% 13:56 04/12/2024 96 94% 13:54 04/12/2024 160/90 104 94 13:51 04/12/2024 97 96% 13:41 04/12/2024 97 95% 5 of 6 Vitals Measured Time BP MAP HR RR O2Sat ETCO2 Temp Pain GCS RTS 13:39 04/12/2024 140/81 113 95 13:36 04/12/2024 95 95% 13:31 04/12/2024 97 95% 13:26 04/12/2024 100 94% 13:24 04/12/2024 141/88 104 95 13:21 04/12/2024 99 95% 11:59 04/12/2024 125/81 100 90 10:25 04/12/2024 150/91 111 99 18 95% RA 99.1 F 3 6 of 6 Normal [facility] HIGH SENSITIVITY TROPONIN Io n 04-12-2024 Tropinin I.cardiac panel High sensitivity method 9.0 pg/mL Normal 0.0-54.0 [facility] Comment on above: Order Comment: Speci men Type: BLOOD SPECIMEN Ordering Facility: [facility] Address: [address] [place] [address] Performed By: #### 2 4321-2, 67497-2, HSTROP #### [facility] CLIA [id number] [address] [place] [address] [place] HISTORY PHYSICALon HISTORY PHYSICAL HNO ID: [id number] Author: RENA CESPEDES MD Service: Hospital Medicine Author Type: Nurse Practitioner Type: H&P Filed: 04/13/2024 07:53 Note Text: Attestation signed by Rena Cespedes MD at 04/13/2024 7:53 AM (Updated) I have reviewed the documentation below obtained and documented by the Nurse Practitioner. I have discussed the case and management of the patient's care with the PAPERBOARD BOX MAKER and agree with the assessment and plan as detailed below. Will consult pulmonology for PE. HISTORY AND PHYSICAL EXAMINATION SERVICE DATE: 04/12/2024 SERVICE TIME: 10:55 PM PRIMARY CARE PHYSICIAN: No primary care provider on file. SUBJECTIVE: CHIEF COMPLAINT: Transfer from [facility] for CT evidence of bilateral pulmonary emboli with heart strain and common femoral vein thrombosis. Transfer for vascular surgery evaluation. HPI: This is a 84 year old male who presents via direct admission from [facility] for bilateral pulmonary emboli with heart strain and common femoral vein thrombosis. Patient initially presented there Friday for chest pain, shortness of breath, and weakness. He underwent CTA of the chest which demonstrated bilateral PE with possible heart strain. CT of the abdomen and pelvis showed some common femoral vein clotting. Initial troponin was 11. Patient was initiated on a heparin drip and transfer was requested for vascular surgery evaluation and echocardiogram. Currently, patient will be admitted to telemetry and continued on high-dose heparin drip with vascular surgery consultation. FUNCTIONAL STATUS: Independent PAST MEDICAL HISTORY Diagnosis Date Hyperlipidemia Mitral valve prolapse PAST SURGICAL HISTORY Procedure Laterality Date HERNIA REPAIR HX TONSILLECTOMY HX FAMILY HISTORY Problem Relation Age of Onset Ischemic Heart Disease Mother CABG Ischemic Heart Disease Father 80 [place]/ CABG Heart Failure Mother None Other 2 brothers/ 2 sisters Social History Tobacco Use Smoking status: Never Smokeless tobacco: Never Substance Use Topics Alcohol use: No Drug use: Never metoprolol tartrate, short acting, (LOPRESSOR) 25 mg tablet, Take 1 tablet by mouth twice daily., Disp: 60 tablet, Rfl: 6 ALLERGIES No Known Allergies Review of Systems Review of Systems A comprehensive review of systems is completed with the patient at the bedside and all other systems were reviewed excluding the above-stated findings in the history of present illness. OBJECTIVE: PHYSICAL EXAM: Physical Exam Performed: Physical Examination: General: awake, alert, oriented x 3 and cooperative, seated upright in bed in no apparent distress. Skin: normal turgor, no icterus, cyanosis. HEENT: AT/NC, EOMI, PERRL, MMM. Lungs: Diminished bilaterally, moderate effort, mild decrease BL bases, no rales, rhonchi or wheezing. Heart: regular rate and rhythm; no gallop, rub audible. No carotid bruits or JVD noted. Abdomen: soft, NTTP, ND, normal BS, no HSM. Extremities: no cyanosis, clubbing, or edema. Neurological: patient awake, alert, oriented x 3; cognitive function intact; pupils equally reactive to light; cranial nerves II-XII grossly intact, moving all 4 extremities, no focal deficits, strength preserved. Psychiatric: affect appears normal, pleasant. No acute evidence of depressive or anxiety feelings. Physical Exam BP 144/68 Pulse 74 Temp (Src) 97.7 (Oral) Resp 18 Ht 5' 7 (1.70m) Wt 158 lb 11.7 oz (72.0kg) SpO2 96% BMI 24.85 kg/(m2). O2 Therapy: Nasal Cannula, Liters: 3.0 DATA: Intake/Output Summary (Last 24 hours) at 04/13/2024 0531 Last data filed at 04/13/2024 0327 Gross per 24 hour Intake -- Output 950 ml Net -950 ml Current Facility-Administered Medications Medication Dose Route Frequency Provider Last Rate Last Admin NaCl 0.9% iv flush bag 20 mL INTRAVENOUS PRN Jonathan Walters APRN.MATHEUS ondansetron 4 mg tab(s) (ZOFRAN) 4 mg ORAL q 6 H PRN Jonathan Walters APRN.EXHAUST WORKER Or ondansetron (PF) 4 mg injection (ZOFRAN) 4 mg INTRAVENOUS q 6 H PRN Jonathan Walters APRN.EXHAUST WORKER oseltamivir 75 mg cap(s) (TAMIFLU) 75 mg ORAL BID Jonathan Walters APRN.EXHAUST WORKER 75 mg at 04/13/24 0038 heparin iv infusion 25,000 units in NaCl 0.45% 250 mL STANDARD NOMOGRAM 0-3,000 Units/hr INTRAVENOUS CONTINUOUS Jonathan Walters APRN.EXHAUST WORKER 11 mL/hr at 04/12/24 2340 1,100 Units/hr at 04/12/24 2340 And heparin RATE CHANGE bolus 1,000-10,000 Units for subtherapeutic PTTAC results 1,000-10,000 Units INTRAVENOUS PRN Jonathan Walters APRN.EXHAUST WORKER sodium chloride 0.9 % (flush) 2-10 mL (BD POSIFLUSH) 2-10 mL INTRAVENOUS DIRECTED PRN Jonathan Walters APRN.EXHAUST WORKER And perflutren lipid microspheres 1.1 mg/mL 1.3 mL injection (DEFINITY) 1.3 mL INTRAVENOUS DIRECTED PRJonathan Poe APRN.EXHAUST WORKER acetaminophen 650 mg tab(s) (TYLENOL) 650 m (more content not included)... Normal [facility] INFLUENZA VIRUS RAPID A/Bon 04-12-2024 INFLUENZA VIRUS RAPID A/B INFLUENZA A NEGATIVE INFLUENZA B NEGATIVE INTERNAL NEG QC PASS INTERNAL POS QC PASS EXTERNAL QC DONE? YES SEND TO IC? NO A NEGATIVE TEST RESULT DOES NOT EXCLUDE INFECTION WITH INFLUENZA A OR B. THEREFORE, THE RESULTS OBTAINED FROM THIS FLU TEST SHOULD BE USED IN CONJUCTION WITH CLINICAL FINDINGS TO MAKE AN ACCURATE DIAGNOSIS. A POSITIVE RESULT DOES NOT RULE OUT CO-INFECTIONS WITH OTHER PATHOGENS OR IDENTIFY ANY SPECIFIC INFLUENZA A VIRUS SUBTYPE.CO-INFECTION WITH INFLUENZA A AND B IS RARE. IT IS RECOMMENDED THAT DUAL POSITIVE RESULTS BE CONFIRMED BY VIRAL CULTURE OR AN FDA-CLEARED INFLUENZA A AND B MOLECULAR ASSAY. INDIVIDUALS WHO HAVE RECEIVED NASALLY ADMINISTERED INFLUENZA A VACCINE MAY TEST POSITIVE IN COMMERCIALLY AVAILABLE INFLUENZA RAPID DIAGNOSTIC TESTS FOR UP TO THREE DAYS. RESULT CRITICAL? NO Normal [facility] Comment on above: Performed By: #### 2 15638 #### [place] [id number] LACTATEon 04-12-2024 Lactate [Moles/Vol] 1.2 mmol/L Normal 0.4 - 2.0 [facility] Comment on above: Performed By: #### 2 35967 #### [address] [address] LIPASEon 04-12-2024 Lipase [Catalytic activity/Vol] 14.0 U/L Low 15.0 - 78.0 [facility] Comment on above: Result Comment: *PLE ASE NOTE THAT RANGES FOR LIPASE HAVE CHANGED OF 03/07/23 DUE TO AN ASSAY UPDATE BY THE HOOP MAKER HELPER MACHINE.THE NEW ASSAY RANGE IS 6-250 U/L, WITH A REFERENCE RANGE OF 16-77 U/L. Performed By: #### 2 21713 #### [facility],[address] [place], [place] [id number] Lactate (Bld) [Moles/Vol]on 04-12-2024 Lactate [Moles/Vol] 1.6 mmol/L Normal 0.4-2.0 [facility] Comment on above: Order Comment: Yahaira bahena Type: BLOOD SPECIMEN Ordering Facility: [facility] Address: [address] [place] [address] Performed By: #### 3 2693-4 #### [facility] CLIA [id number] [address] [place], [place] [id number] [place] Magnesium SerPl-mCncon 04-12 Magnesium [Mass/Vol] 2.4 mg/dL Normal 1.6-2.6 [facility] Comment on above: Order Comment: Yahaira bahena Type: BLOOD SPECIMEN Ordering Facility[facility] Address: [address] [place] [address] Performed By: #### 2 4321-2, 46159-6, HSTROP #### [facility] CLIA [id number] [address] [place] [address] [place] NT-proBNPon 04-12-2024 Natriuretic peptide B (Bld) [Mass/Vol] 292 pg/mL Normal 0 - 450 [facility] Comment on above: Performed By: #### 2 90601 #### [facility],[address] [place] [address] PROTHROMBIN TIME AND INRon 0 04-12-2024 INR Coag (PPP) [Relative time] 1.2 {INR} Normal 0.8 - 1.2 [facility] Comment on above: Result Comment: T HE HEMOSIL THROMBOPLASTIN REAGENT USED IN THE PROTHROMBIN TIME TEST INTERACTS WITH THE DRUG CUBICIN (DAPTOMYCIN) AND WILL RESULT IN FALSELY ELEVATED PT / INR RESULTS INR INTERPRETATION INR INDICATION PREVENTION AND TREATMENT OF THROMBOEMBOLISM ASSOCIATED WITH: 2.0 - 3.0 ATRIAL FIBRILLATION, BIOPROSTHETIC HEART VALVES, PULMONARY EMBOLISM, VENOUS THROMBOSIS, SYSTEMIC EMBOLISM POST MYOCARDIAL INFARCTION 2.5 - 3.5 MECHANICAL HEART VALVES Performed By: #### 2 46833 #### [facility],[address] [place] [address] PROTHROMBIN TIME AND INR Normal [facility] Comment on above: Result Comment: PROT HROMBIN TIME AND INR Performed By: #### 2 40012 #### [facility],[address] [place] [address]55 PT-COUMADIN 13.2 sec Normal 9.3 - 14.1 [facility] Comment on above: Performed By: #### 2 16699 #### [facility],[address] [place] [address] PT panel Coag (PPP)on 2024 INR Coag (PPP) [Relative time] 1.1 {INR} Normal 0.9-1.3 [facility] Comment on above: Order Comment: Speci men Type: BLOOD SPECIMEN Ordering Facility: [facility] Address: [address] [place] [address] Result Comment: Sharlene min K Antagonist (VKA) Therapeutic Range: INR 2 to 3 (Target INR of 2.5) Note: For patients treated with VKA drugs, such as warfarin, the [place] [employer] 2012 Guideline recommends a therapeutic INR range of 2 to 3 (target INR of 2.5). This recommendation includes high-risk patients with antiphospholipid syndrome with previous arterial or venous thromboembolism, current-generation mechanical or bioprosthetic aortic heart valve replacement. Note: Patients with mechanical aortic valve replacement and additional risk factors for thromboembolic events (atrial fibrillation, previous thromboembolism, LV dysfunction, hypercoagulable conditions) or an older generation mechanical AVR (i.e., ball in-Cage) or any mechanical MVR should have a INR therapeutic range of 2.5 to 3.5 (target INR of 3). Velvet MARTIN, et al. Chest 2012, 141:7S-47S Amber RA, et al. [facility] 2017, 70: 252-289 Performed By: #### 3 4528-0, 28014-7 #### [facility] CLIA [id number] [address] [place] [address] [place] PT Coag (PPP) [Time] 12.1 s Normal 9.7-13.0 [facility] Comment on above: Order Comment: Speci men Type: BLOOD SPECIMEN Ordering Facility: [facility] Address: [address] [place] [address] [place] [address] Performed By: #### 3 4528-0, 40604-4 #### [facility] CLIA [id number] [address] [place] [id number] [facility] TROPONINon 04-12-2024 HS TROPONIN 11.9 pg/mL Normal 0.0 - 76.2 [facility] Comment on above: Performed By: #### 2 42622 #### [facility],[address] [place] [address] URINALYSISon 04-12-2024 Bilirubin Ql (U) Negative Normal NORMAL: NEGATIVE [facility] Comment on above: Performed By: #### 2 38015 #### [facility],[address] [place] [address] Clarity (U) clear Normal NORMAL: CLEAR [facility] Comment on above: Performed By: #### 2 77851 #### [facility],[address] [place] [address] Color (U) p.yel Normal NORMAL: YELLOW [facility] Comment on above: Performed By: #### 2 93476 #### [facility],[address] [place] [address] Glucose Ql (U) NORM Normal NORMAL: NORMAL [facility] Comment on above: Performed By: #### 2 29438 #### [facility],[address] [place] [address] Hemoglobin Ql (U) Negative Normal NORMAL: NEGATIVE [facility] Comment on above: Performed By: #### 2 37224 #### [facility],[address] [place] [address] Ketone 50 Abnormal NORMAL: NEGATIVE [facility] Comment on above: Performed By: #### 2 43919 #### [facility],[address] [place] [address] Leukocytes Negative Normal NORMAL: NEGATIVE [facility] Comment on above: Performed By: #### 2 54531 #### [facility],[address] [place] [address] Nitrite Ql (U) Negative Normal NORMAL: NEGATIVE [facility] Comment on above: Performed By: #### 2 98556 #### [facility],[address] [place] [address] pH (U) 7 [pH] Normal NORMAL: 5.0-8.0 [facility] Comment on above: Performed By: #### 2 78377 #### [facility],[address] [place] [address] Protein Ql (U) Negative Normal NORMAL: NEGATIVE [facility] Comment on above: Performed By: #### 2 58920 #### [facility],[address] [place] [address] Sp [place] 1.005 Low NORMAL: 1.010-1.030 [facility] Comment on above: Performed By: #### 2 75932 #### [facility],[address] [place] [address] Specimen Type UNSPECIFIED Normal [facility] Comment on above: Performed By: #### 2 59150 #### [facility],[address] [place] [address] Urinalysis dipstick W Reflex Microscopic panel (U) NOT INDICATED Normal [facility] Comment on above: Performed By: #### 2 64698 #### [facility],[address] [place] [address] Urobilinog NORM Normal NORMAL: NORMAL [facility] Comment on above: Performed By: #### 2 49503 #### [facility],[address] [facility] [address] aPTT PPPon 04-12-2024 aPTT Coag (PPP) [Time] 67.7 s High 23.0-32.4 [facility] Comment on above: Order Comment: Speci men Type: BLOOD SPECIMEN Ordering Facility[facility] Address: [address] [place], [place] [address] [address] Performed By: #### 3 4528-0, 15410-1 #### [facility] CLIA [id number] [address] [place] [address] [facility] Chest 1 Viewon 02-16-2024 Chest 1 View [facility] [address] [place] [address] Chest 1 View MR#: [id number] Acct: [id number] Name: ARTURO PAREDES Rep #: [id number] : 1940 M 83 From: Hernan santos MD PCP: Dr. Ritchie Fregoso MD Status: REG AMB Study: Chest 1 View Date of Exam: 02/16/24 Exam# [id number] Ordering Dr: Bj Iverson :[id number] STUDY: X-RAY CHEST REASON FOR EXAM: Male, 83 years old. Cough, sob, rales LLL TECHNIQUE: Single AP portable view of the chest. COMPARISON: Comparison is made with prior study dated January 25, 2024. FINDINGS: There is hyperinflation of the lungs consistent with chronic obstructive lung disease (COPD). Minimal residual changes at the left lung base suggestive of possible scarring. No evidence of a blunting of the left costophrenic angle at this time. Normal size heart. Normal mediastinum and karla. Normal visualized pulmonary arteries. There is atherosclerotic calcification of the aortic arch with tortuosity. There are diffuse degenerative changes of the visualized thoracic spine. Normal visualized ribs, clavicles, and shoulders. There is no demonstrated abnormality of the visualized soft tissue structures of the upper abdomen. RAD/Chest 1 View IMPRESSION: Hyperinflation. Minimal residual increased markings at the left lung base as compared to prior study suggestive of scarring. The left costophrenic angle is now unremarkable. Electronically Signed: Hernan Wallace MD at 9:20 EST , CC: CORIN Neff; Dr. Ritchie Fregoso MD Labor Gang Supervisor: Signed Normal [facility] Office Visit Reporton 2023 Office Visit Report [facility] [address] [facility] [place] [address] OFFICE VISIT Date of Service: 02/16/24 MR#: [id number] Acct: [id number] Patient: ARTURO PAREDES Rep #: [id number] : 1940 Provider: CORIN Neff Age/Sex: 83/M Location: [facility] Status: Signed Intake Vital Signs 01/25/24 17:36 02/16/24 08:14 Height 1.7 m 1.7 m Weight: 69.4 kg BMI 23.9 BP 125/79 H Blood Pressure Location Rt brachial Position Sitting Pulse 72 Pulse Source Monitor Temp 98.2 F Temp Source Temporal Pulse Oximetry (%) 94 Intake Visit Reasons: Pneumonia Chief Complaint: cough Allergies No Known Allergies Allergy (Verified 02/16/24 08:16) Medications ???Medication ???Instructions ???Recorded ???Confirmed ???Type acetaminophen 325 mg tablet 650 mg (2 x 325 mg) PO Q4H PRN PRN 10/20/23 02/16/24 Rx Pain 1-10 Or Fever #0 tabs tamsulosin 0.4 mg capsule 0.4 mg PO DAILY@1730 #7 caps 10/20/23 02/16/24 Rx azithromycin 250 mg tablet See Rx Instructions PO .COMPLEX #6 02/16/24 02/16/24 Rx (Zithromax Z-Baljit) tabs methylprednisolone 4 mg tablets in See Rx Instructions PO PER PKG DIR 02/16/24 02/16/24 Rx a dose pack #21 tabs Have you fallen in the past year?: No PFSH Medical History Mitral valve prolapse Contact with and (suspected) exposure to other viral communicable diseases URI (upper respiratory infection) Surgical History History of exploratory laparotomy H/O hernia repair Hx of tonsillectomy Family History Other Cancer Heart disease Social History Smoking Status: Never smoker alcohol intake: never HPI HPI Chief Complaint: cough Details: ARTURO PAREDES, is a 83 M who presents to the office today for cough. Pt has been sick x 4 days. He has cough, productive of sputum, left sided pleurisy, SOB with activity, and chest congetion. He has no fever/chills. He had pneumonia about 1 month ago for which he took 14 days of doxy. He is worried he has pneumonia again. ROS Const Constitutional: Positive for fatigue; No chills or fever(s) Resp Respiratory: Positive for cough, chest congestion and shortness of breath; No wheezing Endo Endocrine: Positive for fatigue Aller/Imm Allergy/Immunologic: No wheezing Exam Const General: cooperative, healthy appearing, comfortable, no acute distress, well developed and well groomed Nutritional Appearance: average body habitus and well nourished Orientation: alert, awake and oriented x3 HENMT Head: normocephalic and atraumatic Resp Effort Inspection: normal respiratory effort, able to speak in complete sentences, symmetric chest movement and cough Auscultation: Bilateral: Rales (LLL) Cardio Rate: regular rate Rhythm: regular rhythm Heart Sounds: murmur (3/6 systolic murmur 2nd ICS LSB) Coding Level of Care Code Off vis,est,level 3 Diagnoses Pneumonia J18.9 Bronchitis J40 Assessment and Plan Assessment and Plan (1) Pneumonia: (2) Bronchitis: Status: Acute Plan: Acute bronchitis - cough and SOB x 4 days. SpO2 94% RA, rales LLL on exam. Had pna about 1 month ago treated by [facility] ER with doxy x 14 days. He feels like he has pna again. Xray obtained today interpreted by radiology - no infiltrates. Pleural effusion resolved. scarring left base. At this time recommended azithromycin and medrol dose pack. Follow up with PCP 1-2 weeks. He has not followed up since his last ER visit. Orders: Orders Chest 1 View Today R05.9 - Cough, unspecified Medications: New methylprednisolone PO PER PKG DIR 21 tabs 0RF azithromycin (Zithromax Z-Baljit) take 500 mg today (day 1), then 250 mg for 4 days (days 2-5) PO 6 tabs 0RF Clinical Quality Measures Falls Risk Screening/Assistive Devices Have you fallen in the past year?: No 02/16/24 0928 Date Bj Nieves Signature: Date (if applicable) CC: Normal [facility] 12 Lead EKGon 01-25-2024 12 Lead EKG [facility] Cardiovascular Services [address] [place] [address] 12 Lead EKG 01/25/24 1823 MR#: [id number] Acct: [id number] Name: ARTURO PAREDES Rep #: [id number] : 1940 83 From: Roney Saini MD Attending Dr: Status: DEP ER Ordering Dr: Nathalie Hernandez DO Date: 01/25/24 Location: ED Sex: M C Admitted: Test Reason : DYSRHYTHMIA Blood Pressure : */* mmHG Vent. Rate : 89 BPM Atrial Rate : 89 BPM P-R Int : 224 ms QRS Dur : 104 ms QT Int : 388 ms P-R-T Axes : 81 -54 71 degrees QTcB Int : 472 ms Sinus rhythm with 1st degree A-V block Possible Left atrial enlargement Incomplete right bundle branch block Left anterior fascicular block Abnormal ECG Confirmed by RONEY SAINI MD ([id number]), commissioning editor CINDI BURDEN ([id number]) on 01/26/2024 9:53:21 AM Referred By: Confirmed By: RONEY SAINI MD 01/26/24 0953 Date Roney Saini MD CC: Dr. Nathalie Hernandez DO; Dr. Ritchie Fregoso MD Signed Normal [facility] Abdomen/Pelvis W IV Cont ONL [facility] 01-25-2024 Abdomen/Pelvis W IV Cont ONLY [facility] Imaging Services [address] [place] [address] [id number] Abdomen/Pelvis W IV Cont ONLY MR#: [id number] Acct: [id number] Name: ARTURO PAREDES Rep #: [id number] : 1940 83 From: Ez Paula MD PCP: Dr. Ritchie Fregoso MD Status: REG ER Study: Abdomen/Pelvis W IV Cont ONLY Date of Exam: Exam# [id number] Ordering Dr: Nathalie Hernandez DO :[id number] STUDY: CT ABDOMEN AND PELVIS WITH CONTRAST REASON FOR EXAM: Male, 83 years old. left sdied abd pain, bloating RADIATION DOSAGE (If Supplied By Facility): CTDIvol = ( 13.63 ) mGy, DLP = ( 715.91 ) mGycm TECHNIQUE: Transaxial images were obtained from the dome of the diaphragm to the symphysis pubis without oral contrast. IV 100mL Isovue-370 was administered. Sagittal and coronal images were reconstructed. Individualized dose optimization techniques were used for this CT. COMPARISON: None. FINDINGS: Small left pleural effusion and compressive atelectasis in left lower lobe. Minor atelectasis within the dependent portion of the right lung. The heart size is normal. There is mild coronary artery calcification There is mild biliary sludge or possibly tiny poorly calcified stones in gallbladder without evidence for pericholecystic edema . Normal spleen. Normal pancreas. Normal bilateral adrenal glands. Normal right kidney. Normal left kidney. Normal visualized stomach. Within the left mid abdomen and lower abdomen in the midline there are multiple loops of small bowel demonstrating thickening of the folds consistent with nonspecific enteritis.. Normal colon. The appendix is visualized and appears normal. Atherosclerotic change of the aorta without evidence for aneurysm. Normal inferior vena cava. Normal retroperitoneum. Normal urinary bladder. Nonspecific enlargement of prostate Large fat-containing left inguinal hernia. Lumbar spine demonstrates degenerative changes CT/Abdomen/Pelvis W IV Cont ONLY IMPRESSION: Mild biliary sludge or tiny poorly calcified stones without evidence for acute inflammation Findings which may be consistent with nonspecific enteritis. No definitive evidence for small bowel obstruction or other acute abnormality. Electronically Signed: Ez Paula MD at 19:19 EST Reading Location ID and State: [address] [place] [address] Tel , Service support , CC: Dr. Nathalie Hernandez DO; Dr. Ritchie Fregoso MD Labor Gang Supervisor: Signed Normal [facility] CBC W/Diff, Automatedon 01-08 Absolute Lymph 2.86 X10 3/uL Normal 0.83-4.51 [facility] Comment on above: Performed By: #### L 100.0100, L500.4050, L501.2450 #### [facility] [address] [place], [address] Absolute Neut 4.9 X10 3/uL Normal 2.0-7.7 [facility] Comment on above: Performed By: #### L 100.0100, L500.4050, L501.2450 #### [facility] [address] [place], [address] Basophils/100 WBC (Bld) 0.3 % Normal 0-1 [facility] Comment on above: Performed By: #### L 100.0100, L500.4050, L501.2450 #### [facility] [address] [place], [address] Eosinophils/100 WBC (Bld) 1.1 % Normal 0-5 [facility] Comment on above: Performed By: #### L 100.0100, L500.4050, L501.2450 #### [facility] [address] [place], [address] Erythrocyte distribution width (RBC) [Ratio] 13.0 % Normal 11.6-14.6 [facility] Comment on above: Performed By: #### L 100.0100, L500.4050, L501.2450 #### [facility] [address] [place], [address] Hematocrit (Bld) [Volume fraction] 43.2 % Normal 40-54 [facility] Comment on above: Performed By: #### L 100.0100, L500.4050, L501.2450 #### [facility] [address] [place], [address] Hemoglobin (Bld) [Mass/Vol] 14.4 g/dL Normal 13.0-16.5 [facility] Comment on above: Performed By: #### L 100.0100, L500.4050, L501.2450 #### [facility] [address] [place], [address] IG% 0.300 Normal 0.0-0.9 [facility] Comment on above: Result Comment: IG% - Immature Granulocytes (promyelocytes, myelocytes and metamyelocytes) > 1% indicates that a LEFT SHIFT is Present. Performed By: #### L 100.0100, L500.4050, L501.2450 #### [facility] [address] [place], [address] Lymphocytes/100 WBC (Bld) 32.2 % Normal 19-41 [facility] Comment on above: Performed By: #### L 100.0100, L500.4050, L501.2450 #### [facility] [address] [place], [address] MCH (RBC) [Entitic mass] 30.5 pg Normal 27.0-32.0 [facility] Comment on above: Performed By: #### L 100.0100, L500.4050, L501.2450 #### [facility] [address] [place], [address] MCHC (RBC) [Mass/Vol] 33.3 g/dL Normal 32-36 [facility] Comment on above: Performed By: #### L 100.0100, L500.4050, L501.2450 #### [facility] [address] [place], [address] MCV (RBC) [Entitic vol] 91.5 fL Normal 80-94 [facility] Comment on above: Performed By: #### L 100.0100, L500.4050, L501.2450 #### [facility] [address] [place], [address] Monocytes/100 WBC (Bld) 10.4 % High 0-10 [facility] Comment on above: Performed By: #### L 100.0100, L500.4050, L501.2450 #### [facility] [address] [place], [address] Neutrophils/100 WBC (Bld) 55.7 % Normal 47-70 [facility] Comment on above: Performed By: #### L 100.0100, L500.4050, L501.2450 #### [facility] [address] [place], [address] Nucleated RBC (Bld) [#/Vol] 0 10*3/uL Normal 0-5 [facility] Comment on above: Performed By: #### L 100.0100, L500.4050, L501.2450 #### [facility] [address] [place], [address] Platelet mean volume (Bld) [Entitic vol] 8.8 fL Normal 6.2-12.0 [facility] Comment on above: Performed By: #### L 100.0100, L500.4050, L501.2450 #### [facility] [address] [place], [address] Platelets (Bld) [#/Vol] 333 10*3/uL Normal 150-450 [facility] Comment on above: Performed By: #### L 100.0100, L500.4050, L501.2450 #### [facility] [address] [place], [address] RBC (Bld) [#/Vol] 4.72 10*6/uL Normal 4.6-6.2 [facility] Comment on above: Performed By: #### L 100.0100, L500.4050, L501.2450 #### [facility] [address] [place], [address] RDW SD 43.8 fl Normal 35.1-43.9 [facility] Comment on above: Performed By: #### L 100.0100, L500.4050, L501.2450 #### [facility] [address] [place], [address] WBC (Bld) [#/Vol] 8.9 10*3/uL Normal 4.4-11.0 [facility] Comment on above: Performed By: #### L 100.0100, L500.4050, L501.2450 #### [facility] [address] [place], [place], [address] Chest PA and Lateralon 01-24 Chest PA and Lateral [facility] Imaging Services [address] [place], [place] [address] Chest PA and Lateral MR#: [id number] Acct: [id number] Name: ARTURO PAREDES Rep #: [id number] : 1940 M 83 From: Ez Paula MD PCP: Dr. Ritchie Fregoso MD Status: REG ER Study: Chest PA and Lateral Date of Exam: 01/25/24 Exam# [id number] Ordering Dr: Nathalie Hernandez DO :[id number] STUDY: X-RAY CHEST REASON FOR EXAM: Male, 83 years old. left sided pain TECHNIQUE: PA and lateral COMPARISON: None. FINDINGS: Small left pleural effusion and left lower lobe atelectasis or infiltrate in . Normal size heart. Normal mediastinum and karla. Normal visualized pulmonary arteries. Mildly calcified aortic arch and descending thoracic aorta. Dorsal spine demonstrates degenerative change Normal visualized ribs, clavicles, and shoulders. There is no demonstrated abnormality of the visualized soft tissue structures of the upper abdomen. RAD/Chest PA and Lateral IMPRESSION: Small left pleural effusion and mild left lower lobe atelectasis or infiltrate. Electronically Signed: Ez Paula MD at 20:10 EST Reading Location ID and State: [facility] / MD Tel , Service support , CC: Dr. Nathalie Hernandez DO; Dr. Ritchie Fregoso MD Labor Gang Supervisor: Signed Normal [facility] Comprehensive Metabolic Prof ilon 01-25-2024 Albumin [Mass/Vol] 3.2 g/dL Normal 3.2-5.0 [facility] Comment on above: Performed By: #### L 100.0100, L500.4050, L501.2450 #### [facility] [address] [place], [address] Albumin/Globulin [Mass ratio] 0.7 {ratio} Low 0.9-2.4 [facility] Comment on above: Performed By: #### L 100.0100, L500.4050, L501.2450 #### [facility] [address] [place], [address] ALK P 105 U/L Normal 45-117 [facility] Comment on above: Performed By: #### L 100.0100, L500.4050, L501.2450 #### [facility] [address] [place], [address] ALT [Catalytic activity/Vol] 21 U/L Normal 16-61 [facility] Comment on above: Performed By: #### L 100.0100, L500.4050, L501.2450 #### [facility] [address] [place], [address] AST [Catalytic activity/Vol] 22 U/L Normal 15-37 [facility] Comment on above: Performed By: #### L 100.0100, L500.4050, L501.2450 #### [facility] [address] [place], [address] Bilirubin [Mass/Vol] 0.60 mg/dL Normal 0.20-1.00 [facility] Comment on above: Result Comment: For patients on eltrombopag therapy, use of Dimension [place] TBIL is not recommended. Performed By: #### L 100.0100, L500.4050, L501.2450 #### [facility] [address] [place], [address] BUN/CRE 13.4 RATIO Normal 10-20 [facility] Comment on above: Performed By: #### L 100.0100, L500.4050, L501.2450 #### [facility] [address] [place], [address] CA,Total 8.8 mg/dL Normal 8.5-10.1 [facility] Comment on above: Performed By: #### L 100.0100, L500.4050, L501.2450 #### [facility] [address] [place], [address] Chloride [Moles/Vol] 102 mmol/L Normal 98-107 [facility] Comment on above: Performed By: #### L 100.0100, L500.4050, L501.2450 #### [facility] [address] [place], [address] CO2 [Moles/Vol] 27.0 mmol/L Normal 21.0-32.0 [facility] Comment on above: Performed By: #### L 100.0100, L500.4050, L501.2450 #### [facility] [address] [place], [address] Creatinine [Mass/Vol] 0.67 mg/dL Low 0.70-1.30 [facility] Comment on above: Result Comment: The validity of the calculated GFR GFRAA in patients over 70 years has not been determined. Clinical correlation is essential. Performed By: #### L 100.0100, L500.4050, L501.2450 #### [facility] [address] [place], [address] ECRCL 67.71 ml/min Normal [facility] Comment on above: Performed By: #### L 100.0100, L500.4050, L501.2450 #### [facility] [address] [place], [address] EST GFR - AA 146 mL/min Normal >60 [facility] Comment on above: Result Comment: Afri can [place] GFR Calc Performed By: #### L 100.0100, L500.4050, L501.2450 #### [facility] [address] [place], [address] GAP 6 Normal 5-15 [facility] Comment on above: Performed By: #### L 100.0100, L500.4050, L501.2450 #### [facility] [address] [place], [address] GFR/1.73 sq M.predicted among non-blacks MDRD (S/P/Bld) [Vol rate/Area] 120 mL/min/{1.73_m2} Normal >60 [facility] Comment on above: Result Comment: Non- GFR Calc Performed By: #### L 100.0100, L500.4050, L501.2450 #### [facility] [address] [place], [address] Globulin (S) [Mass/Vol] 4.6 g/dL High 2.2-4.2 [facility] Comment on above: Performed By: #### L 100.0100, L500.4050, L501.2450 #### [facility] [address] [place], [address] Glucose [Mass/Vol] 86 mg/dL Normal 74-106 [facility] Comment on above: Performed By: #### L 100.0100, L500.4050, L501.2450 #### [facility] [address] [place], [address] Potassium [Moles/Vol] 3.7 mmol/L Normal 3.5-5.1 [facility] Comment on above: Performed By: #### L 100.0100, L500.4050, L501.2450 #### [facility] [address] [place], [address] Sodium [Moles/Vol] 135 mmol/L Low 136-145 [facility] Comment on above: Performed By: #### L 100.0100, L500.4050, L501.2450 #### [facility] [address] [place], [address] T PROT 7.8 g/dL Normal 6.4-8.2 [facility] Comment on above: Performed By: #### L 100.0100, L500.4050, L501.2450 #### [facility] [address] [place], [address] Urea nitrogen [Mass/Vol] 9 mg/dL Normal 7-18 [facility] Comment on above: Performed By: #### L 100.0100, L500.4050, L501.2450 #### [facility] [address] [place], [address] Emergency Department Summary on 01-25-2024 Emergency Department Summary [facility] Medical Records Department [address] [place] [address] Emergency Department Summary 01/25/24 MR#: [id number] Acct: [id number] Name: ARTURO PAREDES Rep #: [id number] : 1940 83 From: Nathalie Hernandez DO PCP: Dr. Ritchie Fregoso MD Status:DEP ER Location: ED HPI History of Present Illness Chief Complaint: General Illness Informant: patient Narrative Narrative: Patient is 83-year-old male with history of gallstones, mitral valve prolapse and and exploratory laparoscopy for concern of small bowel volvulus which had spontaneously resolved presenting with left-sided abdominal and chest discomfort. Patient states that symptoms are about 2 days ago. States initially he thought he maybe had some pleurisy and had some left-sided pain with breathing. He tried wrapping his ribs and taking ibuprofen which helped. He notes that he ran out of ibuprofen and took his last dose at 1130 last night. The pain has been worse today. He notes sometimes when he burps his pain goes to his left shoulder. He also has been having a decreased appetite and has been feeling bloated and gassy. He had 2 bowel movements today most recently 4 hours ago. He denies any black or blood in his stool. He states he just does not feel right and is having chills. He generally feels weak. Denies any chest pain, fevers, URI symptoms or significant cough. States that when he has volvulus that is much more painful. Denies any urinary symptoms. No other complaints or concerns reported at this time [facility] Medical History Mitral valve prolapse Contact with and (suspected) exposure to other viral communicable diseases URI (upper respiratory infection) Home Medications ???Medication ???Instructions ???Recorded ???Last Taken ???Type acetaminophen 325 mg tablet 650 mg (2 x 325 mg) PO Q4H PRN PRN 10/20/23 Unknown Rx Pain 1-10 Or Fever #0 tabs tamsulosin 0.4 mg capsule 0.4 mg PO DAILY@1730 #7 caps 10/20/23 Unknown Rx doxycycline hyclate 100 mg tablet 100 mg PO DAILY #14 tabs 01/25/24 Unknown Rx Allergy/AdvReac Type Severity Reaction Status Date / Time No Known Allergies Allergy Verified 01/25/24 17:35 Family History Other Cancer Heart disease Surgical History History of exploratory laparotomy H/O hernia repair Hx of tonsillectomy Social History Smoking Status: Never smoker alcohol intake: never ROS ROS ED Constitutional Constitutional ED: Reports chills; Denies fever(s) Cardiovascular Cardiovascular: Denies chest pain or palpitations Respiratory/Chest Respiratory/Chest: Reports other Details: Reports mild intermittent left-sided pleuritic chest pain ; Denies cough or dyspnea Gastrointestinal Gastrointestinal: Reports abdominal pain and nausea; Denies constipation, diarrhea or vomiting Genitourinary Genitourinary ED: Denies dysuria or hematuria Musculoskeletal Musculoskeletal: Denies arthralgias or myalgias Integumentary Denies rash Neurologic Neurologic: Reports weakness; Denies headache(s) Hematologic/Lymphatic Hematologic/Lymphatic: Denies easy bleeding or easy bruising EXAM Physical Exam Const Vital Signs: 01/25/24 17:36 01/25/24 17:45 01/25/24 19:35 Temperature 98.3 F 98.1 F Temperature Source Oral Oral Pulse Rate 90 89 Respiratory Rate 18 22 H Respiratory Effort Normal Non-Labored Respiratory Pattern Normal Blood Pressure 116/95 H 168/75 H Blood Pressure Mean 102 106 Pulse Ox 97 97 Oxygen Delivery Method Room Air Room Air 01/25/24 21:03 Temperature 98.1 F Temperature Source Pulse Rate 82 Respiratory Rate 18 Respiratory Effort Respiratory Pattern Blood Pressure 152/74 H Blood Pressure Mean 100 Pulse Ox 95 Oxygen Delivery Method Positive well nourished and well developed General Appearance ED: well developed and NAD HEENT Reports moist mucous membranes Eyes PERRL Neck supple and no JVD Chest Wall inspection of chest normal Resp normal respiratory effort and clear to auscultation bilaterally Cardio regular rate and regular rhythm Cardio Narrative: Murmur present GI GI Narrative: Mildly distended abdomen. No fluid wave appreciated. Abdomen soft. No mass appreciated. No significant tenderness or guarding present. Auscultation: normoactive bowel sounds Palpation: Negative for tender, guarding or rebound tenderness present Back/Spine no CVA tenderness Extremity normal to inspection Neuro oriented x3 Sensorium / Orientation: alert Motor Exam: Negative for general weakness Psych mental status (more content not included)... Normal [facility] Lipaseon 01-25-2024 Lipase [Catalytic activity/Vol] 26 U/L Normal 13-75 [facility] Comment on above: Result Comment: Moses jefferson note: LIPASE revised reference range effective 22. New Lipase methodology. Expected to produce lower values than the previous assay method. NEW Reference Range: 13 - 75 U/L Performed By: #### L 100.0100, L500.4050, L501.2450 #### [facility] [address] [place], [place], [id number] Urinalysis, Completeon 01-24 EPI,SQUAMOUS 0-5 SEEN Normal 0-5 [facility] Comment on above: Order Comment: CLEAN CATCH Performed By: #### L 400.0001 ####[facility] [address] [place], [address] RBC 0-5 SEEN Normal 0-5 [facility] Comment on above: Order Comment: CLEAN CATCH Performed By: #### L 400.0001 ####[facility] [address] [place], [address] WBC 0-5 SEEN Normal 0-5 [facility] Comment on above: Order Comment: CLEAN CATCH Performed By: #### L 400.0001 ####[facility] [address] [place], [address] BACTERIA 0 SEEN Normal None Seen [facility] Comment on above: Order Comment: CLEAN CATCH Performed By: #### L 400.0001 ####[facility] [address] [place], [address] Mucus Ql (Urine sed) 0 SEEN Normal [facility] Comment on above: Order Comment: CLEAN CATCH Performed By: #### L 400.0001 ####[facility] [address] [place], [address] Surgery Visit Reporton 11-02 Surgery Visit Report [facility] [address] [place], [place] [address] OFFICE VISIT Date of Service: 11/03/23 MR#: [id number] Acct: [id number] Name: ARTURO PAREDES Rep #: [id number] : 1940 Provider: Dr. Thompson smith MD Age/Sex: 83/M Location: [facility] Status: Signed Intake Vital Signs 10/20/23 13:19 Height 5 ft 7 in Intake Visit Reasons: BOWEL OBSTRUCTION DOS 10/15 Chief Complaint: Follow up Exploratory Laparoscopy 10/16/23 Brim Stretcher Required: No Is patient in pain?: No Allergies No Known Allergies Allergy (Verified 11/03/23 10:13) Medications ???Medication ???Instructions ???Recorded ???Confirmed ???Type acetaminophen 325 mg tablet 650 mg (2 x 325 mg) PO Q4H PRN PRN 10/20/23 11/03/23 Rx Pain 1-10 Or Fever #0 tabs tamsulosin 0.4 mg capsule 0.4 mg PO DAILY@1730 #7 caps 10/20/23 11/03/23 Rx Have you fallen in the past year?: No Subjective Details: Patient reports he is doing well and tolerating a diet. Objective Details: Abdomen is soft and nontender. Incisions are healing well. Coding Level of Care Code Global Post Op Diagnoses Small bowel volvulus K56.2 [facility] Medical History Mitral valve prolapse Contact with and (suspected) exposure to other viral communicable diseases URI (upper respiratory infection) Surgical History (Updated 11/03/23 @ 10:16 by Stella Tavera) History of exploratory laparotomy H/O hernia repair Hx of tonsillectomy Family History Other Cancer Heart disease Social History Smoking Status: Never smoker alcohol intake: never Assessment and Plan (No Qualifiers) Assessment and Plan (1) Small bowel volvulus: Status: Resolved Plan: There was concern for small bowel volvulus and patient had exploratory laparoscopy. Afterwards he had a repeat CT scan that showed the volvulus was resolved but there was no ischemia. The CT also showed a possibly thickened gallbladder wall and currently the patient is having no symptoms and decided not to have surgery at this time. If he changes his mind I would recommend laparoscopic cholecystectomy. Thompson Interiano MD Pager: [facility] [address] [place] [address] Office: 11/04/23 4583 Date Thompson Interiano [facility]: Date (if applicable) CC: Normal [facility] Abdomen/Pelvis WITH Contrast on 10-19-2023 Abdomen/Pelvis WITH Contrast [facility] Imaging Services [address] [place] [address] Abdomen/Pelvis WITH Contrast MR#: [id number] Acct: [id number] Name: ARTURO PAREDES Rep #: [id number] : 1940 M 83 From: Thuy Stiles MD PCP: Dr. Ritchie Freogso MD Status: ADM IN Study: Abdomen/Pelvis WITH Contrast Date of Exam: 01/31 Exam# [id number] Ordering Dr: Thompson Interiano :[id number] STUDY: CT ABDOMEN AND PELVIS WITH CONTRAST - URINARY TRACT REASON FOR EXAM: Male, 83 years old. Small bowel obstruction. PO and IV contrast. Exploratory laparoscopy October 16, 2023 RADIATION DOSAGE (If Supplied By Facility): CTDIvol = ( 14.97 ) mGy, DLP = ( 871.70 ) mGycm TECHNIQUE: Oral Gastrografin and 100mL Isovue-370 was administered. Transaxial images were obtained from the dome of the diaphragm to the symphysis pubis subsequent to intravenous and oral contrast administration. Multiplanar coronal and sagittal images were reformatted. The protocol utilizes one or more of the following dose reduction techniques: automated exposure control, adjustment of mA and/or kV according to patient size,and/or use of iterative reconstruction technique. COMPARISON: October 16, 2023 FINDINGS: There are small bilateral pleural effusions associated minimal dependent consolidation within the lower lobes. The visualized portions of the heart are within normal limits. Normal liver. There is mild gallbladder wall thickening. There are dependent high attenuation foci within the gallbladder. Normal spleen. Normal pancreas. There are few intraperitoneal foci of free air. Normal bilateral adrenal glands. Normal visualized stomach. Normal small intestine. Normal colon. The appendix is visualized and appears normal. There is diffuse atherosclerotic calcification of the abdominal aorta, without a demonstrated aneurysm. No retroperitoneal adenopathy. Normal right kidney. Normal left kidney. There is a focus of air within the urinary bladder, likely secondary to recent instrumentation. There is a Lambert catheter within the urinary bladder. There is enlargement of the prostate gland. There is a focus of subcutaneous stranding with a focus of air within the anterior abdominal wall within the upper abdomen that appears postsurgical. There are diffuse degenerative changes of the visualized lumbar spine. CT/Abdomen/Pelvis WITH Contrast IMPRESSION: No small bowel obstruction. Few foci of intraperitoneal air consistent with recent surgical intervention. Mild gallbladder wall thickening associated with gallstones and/or sludge, consider right upper quadrant ultrasound for further evaluation. Small bilateral pleural effusions associated with minimal lower lobe dependent consolidation. Enlarged prostate gland. Atherosclerosis. Electronically Signed: Thuy Stiles MD at 15:53 EDT , CC: Dr. Thompson Interiano MD; Dr. Ritchie Fregoso MD Labor Gang Supervisor: Signed Normal [facility] Abdomen Single View (Portabl e)on 10-18-2023 Abdomen Single View (Portable) [facility] Imaging Services [address], [place] [id number] Abdomen Single View (Portable) MR#: [id number] Acct: [id number] Name: ARTURO PAREDES Rep #: [id number] : 1940 M 83 From: Neftali Villeda MD PCP: Dr. Ritchie Fregoso MD Status: ADM IN Study: Abdomen Single View (Portable) Date of Exam: 0 10/18/23 Exam# [id number] Ordering Dr: Thompson Interiano :[id number] STUDY: X-RAY - ABDOMEN/PELVIS REASON FOR EXAM: Male, 83 years old. Pain. Evaluate for ileus. TECHNIQUE: Single AP view of the abdomen / pelvis on 3 images. COMPARISON: October 17, 2023 FINDINGS: Normal visualized lung bases. Slight decompression of gaseous distention of bowel since the prior study. Air is seen to the rectosigmoid. No disproportionate dilatation of bowel. Moderate amount of feces in the colon. The visualized liver, spleen and kidneys are grossly normal in size and morphology. Normal soft tissue structures. Normal visualized osseous structures. RAD/Abdomen Single View (Portable) IMPRESSION: Slight radiographic improvement. No acute abnormality identified. Electronically Signed: Neftali Villeda MD at 8:26 EDT Reading Location ID and State: [facility] / [place] , Service support , CC: Dr. Thompson Interiano MD; Dr. Ritchie Fregoso MD Labor Gang Supervisor: Signed Normal [facility] Basic Metabolic Profile (BMP )on 10-18-2023 BUN/CRE 8.0 RATIO Low 10-20 [facility] Comment on above: Performed By: #### L 100.0100, L500.2500 #### [facility] [address] [place], [address] CA,Total 7.9 mg/dL Low 8.5-10.1 [facility] Comment on above: Performed By: #### L 100.0100, L500.2500 #### [facility] [address] [place], [address] Chloride [Moles/Vol] 112 mmol/L High 98-107 [facility] Comment on above: Performed By: #### L 100.0100, L500.2500 #### [facility] [address] [place], [address] CO2 [Moles/Vol] 25.0 mmol/L Normal 21.0-32.0 [facility] Comment on above: Performed By: #### L 100.0100, L500.2500 #### [facility] [address] [place], [address] Creatinine [Mass/Vol] 0.63 mg/dL Low 0.70-1.30 [facility] Comment on above: Result Comment: The validity of the calculated GFR GFRAA in patients over 70 years has not been determined. Clinical correlation is essential. Performed By: #### L 100.0100, L500.2500 #### [facility] [address] [place], [address] ECRCL 67.71 ml/min Normal [facility] Comment on above: Performed By: #### L 100.0100, L500.2500 #### [facility] [address] [place], [address] EST GFR - AA 158 mL/min Normal >60 [facility] Comment on above: Result Comment: Afri can [place] GFR Calc Performed By: #### L 100.0100, L500.2500 #### [facility] [address] [place], [address] GAP 4 Low 5-15 [facility] Comment on above: Performed By: #### L 100.0100, L500.2500 #### [facility] [address] [place], [address] GFR/1.73 sq M.predicted among non-blacks MDRD (S/P/Bld) [Vol rate/Area] 130 mL/min/{1.73_m2} Normal >60 [facility] Comment on above: Result Comment: Non- GFR Calc Performed By: #### L 100.0100, L500.2500 #### [facility] [address] [place], [address] Glucose [Mass/Vol] 108 mg/dL High 74-106 [facility] Comment on above: Result Comment: Fast ing Glucose result from 100 to 125 mg/dL suggests IMPAIRED HOMEOSTASIS per A.D.A. criteria. Performed By: #### L 100.0100, L500.2500 #### [facility] [address] [place], [address] Potassium [Moles/Vol] 3.6 mmol/L Normal 3.5-5.1 [facility] Comment on above: Performed By: #### L 100.0100, L500.2500 #### [facility] [address] [place], [address] Sodium [Moles/Vol] 141 mmol/L Normal 136-145 [facility] Comment on above: Performed By: #### L 100.0100, L500.2500 #### [facility] [address] [place], [address] Urea nitrogen [Mass/Vol] 5 mg/dL Low 7-18 [facility] Comment on above: Performed By: #### L 100.0100, L500.2500 #### [facility] [address] [place], [address] CBC W/Diff, Automatedon 08-1 0-2023 Absolute Lymph 3.16 X10 3/uL Normal 0.83-4.51 [facility] Comment on above: Performed By: #### L 100.0100, L500.2500 #### [facility] [address] [place], [address] Absolute Neut 5.0 X10 3/uL Normal 2.0-7.7 [facility] Comment on above: Performed By: #### L 100.0100, L500.2500 #### [facility] [address] [place], [address] Basophils/100 WBC (Bld) 0.3 % Normal 0-1 [facility] Comment on above: Performed By: #### L 100.0100, L500.2500 #### [facility] [address] [place], [address] Eosinophils/100 WBC (Bld) 1.6 % Normal 0-5 [facility] Comment on above: Performed By: #### L 100.0100, L500.2500 #### [facility] [address] [place], [address] Erythrocyte distribution width (RBC) [Ratio] 13.8 % Normal 11.6-14.6 [facility] Comment on above: Performed By: #### L 100.0100, L500.2500 #### [facility] [address] [place], [address] Hematocrit (Bld) [Volume fraction] 38.8 % Low 40-54 [facility] Comment on above: Performed By: #### L 100.0100, L500.2500 #### [facility] [address] [place], [address] Hemoglobin (Bld) [Mass/Vol] 12.4 g/dL Low 13.0-16.5 [facility] Comment on above: Performed By: #### L 100.0100, L500.2500 #### [facility] [address] [place], [address] IG% 0.300 Normal 0.0-0.9 [facility] Comment on above: Result Comment: IG% - Immature Granulocytes (promyelocytes, myelocytes and metamyelocytes) > 1% indicates that a LEFT SHIFT is Present. Performed By: #### L 100.0100, L500.2500 #### [facility] [address] [place], [address] Lymphocytes/100 WBC (Bld) 34.6 % Normal 19-41 [facility] Comment on above: Performed By: #### L 100.0100, L500.2500 #### [facility] [address] [place], [address] MCH (RBC) [Entitic mass] 30.0 pg Normal 27.0-32.0 [facility] Comment on above: Performed By: #### L 100.0100, L500.2500 #### [facility] [address] [place], [address] MCHC (RBC) [Mass/Vol] 32.0 g/dL Normal 32-36 [facility] Comment on above: Performed By: #### L 100.0100, L500.2500 #### [facility] [address] [place], [address] MCV (RBC) [Entitic vol] 93.7 fL Normal 80-94 [facility] Comment on above: Performed By: #### L 100.0100, L500.2500 #### [facility] [address] [place], [address] Monocytes/100 WBC (Bld) 8.4 % Normal 0-10 [facility] Comment on above: Performed By: #### L 100.0100, L500.2500 #### [facility] [address] [place], [address] Neutrophils/100 WBC (Bld) 54.8 % Normal 47-70 [facility] Comment on above: Performed By: #### L 100.0100, L500.2500 #### [facility] [address] [place], [address] Nucleated RBC (Bld) [#/Vol] 0 10*3/uL Normal 0-5 [facility] Comment on above: Performed By: #### L 100.0100, L500.2500 #### [facility] [address] [place], [address] Platelet mean volume (Bld) [Entitic vol] 8.9 fL Normal 6.2-12.0 [facility] Comment on above: Performed By: #### L 100.0100, L500.2500 #### [facility] [address] [place], [address] Platelets (Bld) [#/Vol] 244 10*3/uL Normal 150-450 [facility] Comment on above: Performed By: #### L 100.0100, L500.2500 #### [facility] [address] [place], [address] RBC (Bld) [#/Vol] 4.14 10*6/uL Low 4.6-6.2 [facility] Comment on above: Performed By: #### L 100.0100, L500.2500 #### [facility] [address] [place], [address] RDW SD 47.2 fl High 35.1-43.9 [facility] Comment on above: Performed By: #### L 100.0100, L500.2500 #### [facility] [address] [place], [address] WBC (Bld) [#/Vol] 9.1 10*3/uL Normal 4.4-11.0 [facility] Comment on above: Performed By: #### L 100.0100, L500.2500 #### [facility] [address] [place], [address] Urinalysis, Completeon 10-17 WBC 0-5 SEEN Normal 0-5 [facility] Comment on above: Order Comment: MIRTHA TER SPECIMEN Performed By: #### L 400.0001 ####[facility] [address] [place], [address] BACTERIA 0 SEEN Normal None Seen [facility] Comment on above: Order Comment: MIRTHA TER SPECIMEN Performed By: #### L 400.0001 ####[facility] [address] [place], [address] EPI,SQUAMOUS 0 SEEN Normal 0-5 [facility] Comment on above: Order Comment: MIRTHA TER SPECIMEN Performed By: #### L 400.0001 ####[facility] [address] [place], [address] Mucus Ql (Urine sed) 0 SEEN Normal [facility] Comment on above: Order Comment: MIRTHA TER SPECIMEN Performed By: #### L 400.0001 ####[facility] [address] [place], [address] RBC 0 SEEN Normal 0-5 [facility] Comment on above: Order Comment: MIRTHA TER SPECIMEN Performed By: #### L 400.0001 ####[facility] [address] [place], [address] Abdomen Single View (Portabl e)on 10-17-2023 Abdomen Single View (Portable) [facility] Imaging Services [address] [place] [address] Abdomen Single View (Portable) MR#: [id number] Acct: [id number] Name: ARTURO PAREDES Rep #: [id number] : 1940 M 83 From: Maryjane Olvera MD PCP: Dr. Ritchie Fregoso MD Status: ADM IN Study: Abdomen Single View (Portable) Date of Exam: 0 10/17/23 Exam# [id number] Ordering Dr: Thompson Interiano :[id number] STUDY: X-RAY - ABDOMEN/PELVIS REASON FOR EXAM: Male, 83 years old patient with small bowel obstruction (SBO). TECHNIQUE: Two AP supine views of the abdomen and pelvis. COMPARISON: CT of the abdomen and pelvis dated October 16, 2023. FINDINGS: Normal visualized lung bases. There is a large amount of bowel gas visible throughout the small and large bowel. There is no demonstrated free abdominal air. There is no obvious organomegaly, mass, dilated bowel or pathologic calcifications. There is contrast in urinary bladder probably secondary to recent enhanced CT. There are diffuse degenerative changes of the visualized spine. There are degenerative changes of bilateral hips. RAD/Abdomen Single View (Portable) IMPRESSION: Large volume of bowel gas suggests possible ileus. Electronically Signed: Maryjane Olvera MD at 6:07 EDT , CC: Dr. Thompson Interiano MD; Dr. Ritchie Fregoso MD Labor Gang Supervisor: Signed Normal [facility] Basic Metabolic Profile (BMP )on 10-17-2023 BUN/CRE 11.2 RATIO Normal 10-20 [facility] Comment on above: Performed By: #### L 500.2500, L100.0100 ####[facility] [address] [place], [address] CA,Total 7.9 mg/dL Low 8.5-10.1 [facility] Comment on above: Performed By: #### L 500.2500, L100.0100 ####[facility] [address] [place], [address] Chloride [Moles/Vol] 109 mmol/L High 98-107 [facility] Comment on above: Performed By: #### L 500.2500, L100.0100 ####[facility] [address] [place], [address] CO2 [Moles/Vol] 25.0 mmol/L Normal 21.0-32.0 [facility] Comment on above: Performed By: #### L 500.2500, L100.0100 ####[facility] [address] [place], [address] Creatinine [Mass/Vol] 0.71 mg/dL Normal 0.70-1.30 [facility] Comment on above: Result Comment: The validity of the calculated GFR GFRAA in patients over 70 years has not been determined. Clinical correlation is essential. Performed By: #### L 500.2500, L100.0100 ####[facility] [address] [place], [address] ECRCL 67.71 ml/min Normal [facility] Comment on above: Performed By: #### L 500.2500, L100.0100 ####[facility] [address] [place], [address] EST GFR - AA 136 mL/min Normal >60 [facility] Comment on above: Result Comment: Afri can [place] GFR Calc Performed By: #### L 500.2500, L100.0100 ####[facility] [address] [place], [address] GAP 5 Normal 5-15 [facility] Comment on above: Performed By: #### L 500.2500, L100.0100 ####[facility] [address] [place], [address] GFR/1.73 sq M.predicted among non-blacks MDRD (S/P/Bld) [Vol rate/Area] 113 mL/min/{1.73_m2} Normal >60 [facility] Comment on above: Result Comment: Non- GFR Calc Performed By: #### L 500.2500, L100.0100 ####[facility] [address] [place], [address] Glucose [Mass/Vol] 98 mg/dL Normal 74-106 [facility] Comment on above: Performed By: #### L 500.2500, L100.0100 ####[facility] [address] [place], [address] Potassium [Moles/Vol] 3.9 mmol/L Normal 3.5-5.1 [facility] Comment on above: Performed By: #### L 500.2500, L100.0100 ####[facility] [address] [place], [address] Sodium [Moles/Vol] 139 mmol/L Normal 136-145 [facility] Comment on above: Performed By: #### L 500.2500, L100.0100 ####[facility] [address] [place], [address] Urea nitrogen [Mass/Vol] 8 mg/dL Normal 7-18 [facility] Comment on above: Performed By: #### L 500.2500, L100.0100 ####[facility] [address] [place], [address] CBC W/Diff, Automatedon 08-0 9-2024 Absolute Lymph 1.85 X10 3/uL Normal 0.83-4.51 [facility] Comment on above: Performed By: #### L 500.2500, L100.0100 ####[facility] [address] [place], [address] Absolute Neut 5.0 X10 3/uL Normal 2.0-7.7 [facility] Comment on above: Performed By: #### L 500.2500, L100.0100 ####[facility] [address] [place], [address] Basophils/100 WBC (Bld) 0.4 % Normal 0-1 [facility] Comment on above: Performed By: #### L 500.2500, L100.0100 ####[facility] [address] [place], [address] Eosinophils/100 WBC (Bld) 0.9 % Normal 0-5 [facility] Comment on above: Performed By: #### L 500.2500, L100.0100 ####[facility] [address] [place], [address] Erythrocyte distribution width (RBC) [Ratio] 13.7 % Normal 11.6-14.6 [facility] Comment on above: Performed By: #### L 500.2500, L100.0100 ####[facility] [address] [place], [address] Hematocrit (Bld) [Volume fraction] 38.2 % Low 40-54 [facility] Comment on above: Performed By: #### L 500.2500, L100.0100 ####[facility] [address] [place], [address] Hemoglobin (Bld) [Mass/Vol] 12.4 g/dL Low 13.0-16.5 [facility] Comment on above: Performed By: #### L 500.2500, L100.0100 ####[facility] [address] [place], [address] IG% 0.300 Normal 0.0-0.9 [facility] Comment on above: Result Comment: IG% - Immature Granulocytes (promyelocytes, myelocytes and metamyelocytes) > 1% indicates that a LEFT SHIFT is Present. Performed By: #### L 500.2500, L100.0100 ####[facility] [address] [place], [address] Lymphocytes/100 WBC (Bld) 23.9 % Normal 19-41 [facility] Comment on above: Performed By: #### L 500.2500, L100.0100 ####[facility] [address] [place], [address] MCH (RBC) [Entitic mass] 30.4 pg Normal 27.0-32.0 [facility] Comment on above: Performed By: #### L 500.2500, L100.0100 ####[facility] [address] [place], [address] MCHC (RBC) [Mass/Vol] 32.5 g/dL Normal 32-36 [facility] Comment on above: Performed By: #### L 500.2500, L100.0100 ####[facility] [address] [place], [address] MCV (RBC) [Entitic vol] 93.6 fL Normal 80-94 [facility] Comment on above: Performed By: #### L 500.2500, L100.0100 ####[facility] [address] [place], [address] Monocytes/100 WBC (Bld) 10.2 % High 0-10 [facility] Comment on above: Performed By: #### L 500.2500, L100.0100 ####[facility] [address] [place], [address] Neutrophils/100 WBC (Bld) 64.3 % Normal 47-70 [facility] Comment on above: Performed By: #### L 500.2500, L100.0100 ####[facility] [address] [place], [address] Nucleated RBC (Bld) [#/Vol] 0 10*3/uL Normal 0-5 [facility] Comment on above: Performed By: #### L 500.2500, L100.0100 ####[facility] [address] [place], [address] Platelet mean volume (Bld) [Entitic vol] 8.9 fL Normal 6.2-12.0 [facility] Comment on above: Performed By: #### L 500.2500, L100.0100 ####[facility] [address] [place], [address] Platelets (Bld) [#/Vol] 253 10*3/uL Normal 150-450 [facility] Comment on above: Performed By: #### L 500.2500, L100.0100 ####[facility] [address] [place], [address] RBC (Bld) [#/Vol] 4.08 10*6/uL Low 4.6-6.2 [facility] Comment on above: Performed By: #### L 500.2500, L100.0100 ####[facility] [address] [place], [address] RDW SD 46.8 fl High 35.1-43.9 [facility] Comment on above: Performed By: #### L 500.2500, L100.0100 ####[facility] [address] [place], [address] WBC (Bld) [#/Vol] 7.7 10*3/uL Normal 4.4-11.0 [facility] Comment on above: Performed By: #### L 500.2500, L100.0100 ####[facility] [address] [place], [address] 12 Lead EKGon 10-16-2023 12 Lead EKG [facility] Cardiovascular Services [address] [place] [address] 12 Lead EKG 10/16/23 1810 MR#: [id number] Acct: [id number] Name: ARTURO PAREDES Rep #: [id number] : 1940 83 From: Gregoria Kumar MD Attending Dr: Dr. Thompson Interiano MD Status: ADM IN Ordering Dr: Anoop Pitts MD Date: 10/16/23 Location: [facility] [place] Sex: M C Admitted: 10/16/23 Test Reason : PRE-OP Blood Pressure : / mmHG Vent. Rate : 083 BPM Atrial Rate : 083 BPM P-R Int : 266 ms QRS Dur : 102 ms QT Int : 424 ms P-R-T Axes : 075 -57 068 degrees QTc Int : 498 ms Sinus rhythm with 1st degree A-V block Incomplete right bundle branch block Left anterior fascicular block Cannot rule out Anterior infarct , age undetermined Abnormal ECG Confirmed by ARPIT ANTUNEZ, NORMA ([id number]), commissioning editor NETTACINDI ALEXANDRA ([id number]) on 10/20/2023 8:44:46 AM Referred By: Thompson Interiano Confirmed By:DAYSI KUMAR MD 10/20/23 0844 Date Gregoria Kumar MD CC: Dr. Anoop Pitts MD; Dr. Thompson Interiano MD; Dr. Ritchie Fregoso MD Signed Normal [facility] Abdomen/Pelvis W IV Cont ONL Yon 10-16-2023 Abdomen/Pelvis W IV Cont ONLY [facility] Imaging Services [address] [place] [address] Abdomen/Pelvis W IV Cont ONLY MR#: [id number] Acct: [id number] Name: ARTURO PAREDES Rep #: [id number] : 1940 83 From: Que osborne MD PCP: Dr. Ritchie Fregoso MD Status: REG ER Study: Abdomen/Pelvis W IV Cont ONLY Date of Exam: Exam# [id number] Ordering Dr: Anoop Pitts MD ADDENDUM by Dr. Que Apodaca MD on 10/16/23 at 1740 :[id number] STUDY: CT ABDOMEN AND PELVIS WITH CONTRAST REASON FOR EXAM: Male, 83 years old. RADIATION DOSAGE (If Supplied By Facility): CTDIvol = ( 11.93 ) mGy, DLP = ( 586.96 ) mGycm TECHNIQUE: Transaxial images were obtained from the dome of the diaphragm to the symphysis pubis without oral contrast. ml of 100mL Isovue-300 contrast was administered. Sagittal and coronal images were reconstructed. Individualized dose optimization techniques were used for this CT. COMPARISON: None. 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 Post pneumonic fibrotic scarring is present in the left lower lobe with pleural thickening. Small bowel volvulus is present with abnormal twisting of the middle one third ileum around the superior mesenteric vascular pedicle in the central abdomen which significantly edematous and engorged mesentery, reactive subcentimeter lymphadenopathy, as well as a small reactive amount of ascites. The loops proximal to the focal narrowing/site of volvulus are mildly to moderately fluid distended. A secondary distal ileal ileus is also present with fluid distention. The ileocecal junction is spared. No free air is present. No visualized bowel masses. Mild edema and hyperenhancement of the jejunal loops are present with mild fluid distention due to ileus. No visualized superior mesenteric artery or vein thrombus or complete occlusion, although there is obvious atherosclerotic plaque and some narrowing seen in the superior mesenteric artery. No demonstrated portal venous gas or pneumatosis. Small to moderate-sized left inguinal fat-containing hernia. Mild to moderate enlargement of prostate gland with the apex herniating into the base of the bladder. Diffuse heterogeneity of the prostate gland. Normal liver. Normal gallbladder and extrahepatic biliary system. Normal spleen. Normal pancreas. Normal bilateral adrenal glands. There is mild cortical atrophy of the right kidney, consistent with chronic medical renal disease. Normal left kidney. Normal visualized stomach. Normal colon. The appendix is visualized and appears normal. There is diffuse atherosclerotic calcification of the abdominal aorta, without a demonstrated aneurysm. Normal inferior vena cava. Normal retroperitoneum. Normal urinary bladder. Normal abdominal wall. There are diffuse degenerative changes of the visualized lumbar spine. 10/16/23 1740 Date cc: Dr. Anoop Pitts MD; Dr. Ritchie Fregoso MD * Signed ADDENDUM by Dr. Que Apodaca MD on 10/16/[address]/Abdomen/Pelvis W IV Cont ONLY IMPRESSION: Small bowel volvulus 1. Small bowel volvulus is present with abnormal twisting of the middle one third ileum around the superior mesenteric vascular pedicle in the central abdomen which significantly edematous and engorged mesentery, reactive subcentimeter lymphadenopathy, as well as a small reactive amount of ascites. The loops proximal to the focal narrowing/site of volvulus are mildly to moderately fluid distended. A secondary distal ileal ileus is also present with fluid distention. The ileocecal junction is spared. No free air is present. 2. No visualized bowel masses. 3. Mild edema and hyperenhancement of the jejunal loops are present with mild fluid distention due to ileus. 4. No visualized superior mesenteric artery or vein thrombus or complete occlusion, although there is obvious atherosclerotic plaque and some narrowing seen in the superior mesenteric artery. 5. No demonstrated portal venous gas or pneumatosis. N.B. : The above Results were Read Back by Que Apodaca MD to Anoop Pitts MD, and understanding confirmed on 10/16/2023 17:52:49 (ET). Electronically Signed: Que Apodaca MD at 17:40 EDT Reading Location ID and State: [facility] / [place] , Service support , 10/16/231758 Date cc: Dr. Anoop Pitts MD; Dr. Ritchie Fregoso MD * Signed We are attempting to reach an attending provider to discuss findings. An addendum with communication details will be sent when the communication is complete. :[id number] STUDY: CT ABDOMEN AND PELVIS WITH CONTRAS (more content not included)... Normal [facility] CBC W/Diff, Automatedon 08-0 Absolute Lymph 2.90 X10 3/uL Normal 0.83-4.51 [facility] Comment on above: Performed By: #### L 500.4050, L501.2450, L100.0100 ####[facility] [address] [place], [address] Absolute Neut 3.1 X10 3/uL Normal 2.0-7.7 [facility] Comment on above: Performed By: #### L 500.4050, L501.2450, L100.0100 ####[facility] [address] [place], [address] Basophils/100 WBC (Bld) 0.9 % Normal 0-1 [facility] Comment on above: Performed By: #### L 500.4050, L501.2450, L100.0100 ####[facility] [address] [place], [address] Eosinophils/100 WBC (Bld) 2.7 % Normal 0-5 [facility] Comment on above: Performed By: #### L 500.4050, L501.2450, L100.0100 ####[facility] [address] [place], [address] Erythrocyte distribution width (RBC) [Ratio] 13.4 % Normal 11.6-14.6 [facility] Comment on above: Performed By: #### L 500.4050, L501.2450, L100.0100 ####[facility] [address] [place], [address] Hematocrit (Bld) [Volume fraction] 45.9 % Normal 40-54 [facility] Comment on above: Performed By: #### L 500.4050, L501.2450, L100.0100 ####[facility] [address] [place], [address] Hemoglobin (Bld) [Mass/Vol] 14.9 g/dL Normal 13.0-16.5 [facility] Comment on above: Performed By: #### L 500.4050, L501.2450, L100.0100 ####[facility] [address] [place], [address] IG% 0.300 Normal 0.0-0.9 [facility] Comment on above: Result Comment: IG% - Immature Granulocytes (promyelocytes, myelocytes and metamyelocytes) > 1% indicates that a LEFT SHIFT is Present. Performed By: #### L 500.4050, L501.2450, L100.0100 ####[facility] [address] [place], [address] Lymphocytes/100 WBC (Bld) 43.0 % High 19-41 [facility] Comment on above: Performed By: #### L 500.4050, L501.2450, L100.0100 ####[facility] [address] [place], [address] MCH (RBC) [Entitic mass] 29.7 pg Normal 27.0-32.0 [facility] Comment on above: Performed By: #### L 500.4050, L501.2450, L100.0100 ####[facility] [address] [place], [address] MCHC (RBC) [Mass/Vol] 32.5 g/dL Normal 32-36 [facility] Comment on above: Performed By: #### L 500.4050, L501.2450, L100.0100 ####[facility] [address] [place], [address] MCV (RBC) [Entitic vol] 91.6 fL Normal 80-94 [facility] Comment on above: Performed By: #### L 500.4050, L501.2450, L100.0100 ####[facility] [address] [place], [address] Monocytes/100 WBC (Bld) 6.8 % Normal 0-10 [facility] Comment on above: Performed By: #### L 500.4050, L501.2450, L100.0100 ####[facility] [address] [place], [address] Neutrophils/100 WBC (Bld) 46.3 % Low 47-70 [facility] Comment on above: Performed By: #### L 500.4050, L501.2450, L100.0100 ####[facility] [address] [place], [address] Nucleated RBC (Bld) [#/Vol] 0 10*3/uL Normal 0-5 [facility] Comment on above: Performed By: #### L 500.4050, L501.2450, L100.0100 ####[facility] [address] [place], [address] Platelet mean volume (Bld) [Entitic vol] 8.6 fL Normal 6.2-12.0 [facility] Comment on above: Performed By: #### L 500.4050, L501.2450, L100.0100 ####[facility] [address] [place], [address] Platelets (Bld) [#/Vol] 321 10*3/uL Normal 150-450 [facility] Comment on above: Performed By: #### L 500.4050, L501.2450, L100.0100 ####[facility] [address] [place], [address] RBC (Bld) [#/Vol] 5.01 10*6/uL Normal 4.6-6.2 [facility] Comment on above: Performed By: #### L 500.4050, L501.2450, L100.0100 ####[facility] [address] [place], [address] RDW SD 45.6 fl High 35.1-43.9 [facility] Comment on above: Performed By: #### L 500.4050, L501.2450, L100.0100 ####[facility] [address] [place], [place], [address] WBC (Bld) [#/Vol] 6.7 10*3/uL Normal 4.4-11.0 [facility] Comment on above: Performed By: #### L 500.4050, L501.2450, L100.0100 ####[facility] [address] [place], [place], [address] CXR for Line Placementon CXR for Line Placement [facility] Imaging Services [address] [place], [place] [address] CXR for Line Placement MR#: [id number] Acct: [id number] Name: ARTRUO PAREDES Rep #: [id number] : 1940 M 83 From: Que osborne MD PCP: Dr. Ricthie Fregoso MD Status: [facility] Study: CXR for Line Placement Date of Exam: 10/16/23 Exam# [id number] Ordering Dr: Anoop Pitts MD :[id number] STUDY: X-RAY -ABDOMEN. REASON FOR EXAM: Male, 83 years old. ng tube placement -- KUB with both diaphragms for NG/OG Verification TECHNIQUE: Single AP view of the abdomen. COMPARISON: CT of abdomen and pelvis dated October 16, 2023 FINDINGS: Collimated view of the chest and upper abdomen only. The pelvis is not included. Normal visualized lung bases. There is an unremarkable bowel gas pattern. The new feeding tube is in the proximal body of the stomach in the left upper quadrant. Normal soft tissue structures. There are diffuse degenerative changes of the visualized lumbar spine. RAD/CXR for Line Placement IMPRESSION: 1. The new feeding tube is in the proximal body of the stomach in the left upper quadrant. Electronically Signed: Que Apodaca MD at 19:48 EDT , CC: Dr. Anoop Pitts MD; Dr. Ritchie Fregoso MD Labor Gang Supervisor: Signed Normal [facility] Comprehensive Metabolic Prof ilon 10-16-2023 Albumin [Mass/Vol] 3.7 g/dL Normal 3.2-5.0 [facility] Comment on above: Performed By: #### L 500.4050, L501.2450, L100.0100 ####[facility] [address] [place], [address] Albumin/Globulin [Mass ratio] 0.8 {ratio} Low 0.9-2.4 [facility] Comment on above: Performed By: #### L 500.4050, L501.2450, L100.0100 ####[facility] [address] [place], [address] ALK P 99 U/L Normal 45-117 [facility] Comment on above: Performed By: #### L 500.4050, L501.2450, L100.0100 ####[facility] [address] [place], [address] ALT [Catalytic activity/Vol] 25 U/L Normal 16-61 [facility] Comment on above: Performed By: #### L 500.4050, L501.2450, L100.0100 ####[facility] [address] [place], [address] AST [Catalytic activity/Vol] 24 U/L Normal 15-37 [facility] Comment on above: Performed By: #### L 500.4050, L501.2450, L100.0100 ####[facility] [address] [place], [address] Bilirubin [Mass/Vol] 0.60 mg/dL Normal 0.20-1.00 [facility] Comment on above: Result Comment: For patients on eltrombopag therapy, use of Dimension [place] TBIL is not recommended. Performed By: #### L 500.4050, L501.2450, L100.0100 ####[facility] [address] [place], [address] BUN/CRE 9.4 RATIO Low 10-20 [facility] Comment on above: Performed By: #### L 500.4050, L501.2450, L100.0100 ####[facility] [address] [place], [address] CA,Total 9.3 mg/dL Normal 8.5-10.1 [facility] Comment on above: Performed By: #### L 500.4050, L501.2450, L100.0100 ####[facility] [address] [place], [address] Chloride [Moles/Vol] 105 mmol/L Normal 98-107 [facility] Comment on above: Performed By: #### L 500.4050, L501.2450, L100.0100 ####[facility] [address] [place], [address] CO2 [Moles/Vol] 30.0 mmol/L Normal 21.0-32.0 [facility] Comment on above: Performed By: #### L 500.4050, L501.2450, L100.0100 ####[facility] [address] [place], [address] Creatinine [Mass/Vol] 0.95 mg/dL Normal 0.70-1.30 [facility] Comment on above: Result Comment: The validity of the calculated GFR GFRAA in patients over 70 years has not been determined. Clinical correlation is essential. Performed By: #### L 500.4050, L501.2450, L100.0100 ####[facility] [address] [place], [address] ECRCL 57.02 ml/min Normal [facility] Comment on above: Performed By: #### L 500.4050, L501.2450, L100.0100 ####[facility] [address] [place], [address] EST GFR - AA 97 mL/min Normal >60 [facility] Comment on above: Result Comment: Afri can [place] GFR Calc Performed By: #### L 500.4050, L501.2450, L100.0100 ####[facility] [address] [place], [address] GAP 6 Normal 5-15 [facility] Comment on above: Performed By: #### L 500.4050, L501.2450, L100.0100 ####[facility] [address] [place], [address] GFR/1.73 sq M.predicted among non-blacks MDRD (S/P/Bld) [Vol rate/Area] 80 mL/min/{1.73_m2} Normal >60 [facility] Comment on above: Result Comment: Non- GFR Calc Performed By: #### L 500.4050, L501.2450, L100.0100 ####[facility] [address] [place], [address] Globulin (S) [Mass/Vol] 4.4 g/dL High 2.2-4.2 [facility] Comment on above: Performed By: #### L 500.4050, L501.2450, L100.0100 ####[facility] [address] [place], [address] Glucose [Mass/Vol] 127 mg/dL High 74-106 [facility] Comment on above: Result Comment: Fast ing Glucose result greater than or equal to 126 mg/dL suggests DIABETES MELLITUS per A.D.A. criteria. Performed By: #### L 500.4050, L501.2450, L100.0100 ####[facility] [address] [place], [address] Potassium [Moles/Vol] 4.1 mmol/L Normal 3.5-5.1 [facility] Comment on above: Performed By: #### L 500.4050, L501.2450, L100.0100 ####[facility] [address] [place], [address] Sodium [Moles/Vol] 141 mmol/L Normal 136-145 [facility] Comment on above: Performed By: #### L 500.4050, L501.2450, L100.0100 ####[facility] [address] [place], [address] T PROT 8.1 g/dL Normal 6.4-8.2 [facility] Comment on above: Performed By: #### L 500.4050, L501.2450, L100.0100 ####[facility] [address] [place], [address] Urea nitrogen [Mass/Vol] 9 mg/dL Normal 7-18 [facility] Comment on above: Performed By: #### L 500.4050, L501.2450, L100.0100 ####[facility] [address] [place], [address] Emergency Department Summary on 10-16-2023 Emergency Department Summary [facility] Medical Records Department [address] [place] [address] Emergency Department Summary 10/16/23 MR#: [id number] Acct: [id number] Name: ARTURO PAREDES Rep #: [id number] : 1940 83 From: Anoop Pitts MD PCP: Dr. Ritchie Fregoso MD Status:REG [facility] Location: [place] [address]-1 HPI HPI - GI History of Present Illness Chief Complaint: Abd Pain Narrative Narrative: 83-year-old male presents via EMS with abdominal pain and distention that has had over the last 2 hours. He states he feels like he has gas, but is unable to pass it. He denies any nausea or vomiting, no fevers or chills. His daughter is at the bedside who states that ever since his about a year ago, they have noticed that they thought his abdomen was more distended. He states that he thinks he had a gallbladder attack today after eating, and as he was driving along, he did not feel well and had to nail puller. He became very diaphoretic. EMS was called because of his abdominal pain and bloating. No exacerbating or alleviating factors. [facility] Medical History Mitral valve prolapse Contact with and (suspected) exposure to other viral communicable diseases URI (upper respiratory infection) Home Medications ???Medication ???Instructions ???Recorded ???Last Taken ???Type amoxicillin 875 mg-potassium 1 tab PO Q12H #14 tabs 09/04/23 Unknown Rx clavulanate 125 mg tablet dextromethorphan-guaifenesin 20 5 ml PO Q6H PRN cough #473 mL 09/04/23 Unknown Rx mg-400 mg/5 mL oral liquid Allergy/AdvReac Type Severity Reaction Status Date / Time No Known Allergies Allergy Verified 09/04/23 13:40 Family History Other Cancer Heart disease Surgical History H/O hernia repair Hx of tonsillectomy Social History Smoking Status: Never smoker alcohol intake: never ROS ROS ED ROS Narrative Constitutional: No fever, no chills. HEENT: No sore throat. No neck pain. No loss of vision. No rhinorrhea. Cardiovascular: No chest pain. No palpitations. No pedal edema. Respiratory: No cough, no shortness of breath. Abdominal: Diffuse abdominal pain and distention. No nausea. No vomiting. Genitourinary: No dysuria. No hematuria. Musculoskeletal: No myalgias. No arthralgias. Neurologic: No headaches. No dizziness. No lightheadedness. Skin: No rash. No change in color. Psychiatric: No depression. No anxiety. EXAM Physical Exam Narrative Exam Narrative: Afebrile. Vital signs noted. HEENT: Normocephalic. Atraumatic. PERRL, EOMI. Neck soft and supple. No point tenderness or step off. Cardiovascular: Regular rate and rhythm. No murmurs, rubs, or gallops appreciated. Respiratory: No tachypnea. Lungs clear to auscultation bilaterally. Gastrointestinal: Abdomen soft, nontender, with positive bowel sounds. Mild distention. No rebound or guarding. Neurological: Awake. Alert. Nonfocal, nonlateralizing. Skin: No rash. Normal color. No pallor. Musculoskeletal: No pedal edema. Full range of motion extremities. Const Vital Signs: 10/16/23 15:20 10/16/23 17:20 10/16/23 18:18 Temperature 97.5 F L 97.7 F L Temperature Source Temporal Oral Pulse Rate 62 88 93 Respiratory Rate 14 18 25 H Blood Pressure 152/84 H 159/83 H 173/83 H Blood Pressure Mean 106 108 113 Blood Pressure Source Monitor Blood Pressure Position Semi-Fowlers Pulse Ox 96 98 96 Oxygen Delivery Method Room Air Room Air 10/16/23 18:33 Temperature 97 F L Temperature Source Pulse Rate 90 Respiratory Rate 15 Blood Pressure 182/92 H Blood Pressure Mean 122 Blood Pressure Source Blood Pressure Position Pulse Ox 97 Oxygen Delivery Method MDM MDM MDM Narrative Medical decision making narrative: Differential diagnosis includes but not limited to fecal impaction/constipation versus partial small bowel obstruction versus colonic mass. States he has been having normal bowel movements on a reg ular basis. His onset was after eating and approximately 2 hours ago today. Comprehensive workup was pursued. I do feel CT imaging is indicated to help rule out obstruction. I will obtain basic laboratory work to rule out dehydration. I reviewed his laboratory work, and he has normal white count of 6.7, hemoglobin 14.9, hematocrit 45.9, platelet count is normal at 321. Electrolyte panel is grossly unremarkable with a normal sodium of 141 potassium 4.1, glucose elevated 127 but normal anion gap of 6. LFTs are grossly unremarkable. Lipase normal at 22. He was administered morphine and ondansetron for analgesia and for nausea. Urinalysis is negative for infect (more content not included)... Normal [facility] H AND P Exam - Surgicalon H&P Exam - Surgical [facility] Medical Records Department [address] [place] [address] H P Exam - Surgical 10/16/23 1833 MR#: [id number] Acct: [id number] Name: ARTURO PAREDES Rep #: [id number] : 1940 83 From: Thompson Interiano MD PCP: Dr. Ritchie Fregoso MD Status:[facility] Location: [place] [address] HPI - General HPI Narrative ARTURO PAREDES, is a 83 M who presents with abdominal pain that started a few hours before presentation. Patient reports that he does not have nausea or vomiting currently. His abdominal pain is in the left side of his abdomen. Patient has never had surgery inside of his abdomen. He has never had a bowel obstruction in the past. [facility] Medical History Mitral valve prolapse Contact with and (suspected) exposure to other viral communicable diseases URI (upper respiratory infection) Home Medications ???Medication ???Instructions ???Recorded ???Last Taken ???Type amoxicillin 875 mg-potassium 1 tab PO Q12H #14 tabs 09/04/23 Unknown Rx clavulanate 125 mg tablet dextromethorphan-guaifenesin 20 5 ml PO Q6H PRN cough #473 mL 09/04/23 Unknown Rx mg-400 mg/5 mL oral liquid Allergy/AdvReac Type Severity Reaction Status Date / Time No Known Allergies Allergy Verified 09/04/23 13:40 Family History Other Cancer Heart disease Surgical History H/O hernia repair Hx of tonsillectomy Social History Smoking Status: Never smoker alcohol intake: never ROS Constitutional Constitutional: Reports anorexia; Denies chills, fatigue or fever(s) Eyes Eyes: Denies blurry vision ENT HEENT: Denies abnormal hearing Cardiovascular Cardiovascular: Denies chest pain Respiratory/Chest Respiratory/Chest: Denies cough or dyspnea Gastrointestinal Gastrointestinal: Reports abdominal pain; Denies nausea or vomiting Genitourinary Genitourinary: Denies change in urinary stream Musculoskeletal Musculoskeletal: Denies abnormal gait Integumentary Integumentary: Denies jaundice or new lesions Neurologic Neurologic: Denies abnormal gait Psychiatric Psychiatric: Denies anxiety Endocrine Endocrinology: Denies flushing Vital Signs Vital Signs Vital Signs: 10/16/23 15:20 10/16/23 17:20 10/16/23 18:18 Temperature 97.5 F L 97.7 F L Temperature Source Temporal Oral Pulse Rate 62 88 93 Respiratory Rate 14 18 25 H Blood Pressure 152/84 H 159/83 H 173/83 H Blood Pressure Mean 106 108 113 Blood Pressure Source Monitor Blood Pressure Position Semi-Fowlers Pulse Ox 96 98 96 Oxygen Delivery Method Room Air Room Air Weight Weight: 170 lb 10.205 oz Body Mass Index (BMI) 26.7 Physical Exam Const oriented x3 and no apparent distress Resp normal respiratory effort Cardio regular rate and regular rhythm GI soft to palpation Inspection: abdominal distention Palpation: tender LUQ and RUQ Extremity normal to inspection Results Lab / Micro Data 10/16/23 15:31 10/16/23 15:31 Labs: Laboratory Results - last 24 hr 10/16/23 15:31: WBC 6.7, RBC 5.01, Hgb 14.9, Hct 45.9, MCV 91.6, MCH 29.7, MCHC 32.5, RDW Std Deviation 45.6 H, RDW Coeff of Chio 13.4, Plt Count 321, MPV 8.6, Immature Gran % (Auto) 0.300, Neut % (Auto) 46.3 L, Lymph % (Auto) 43.0 H, [place] % (Auto) 6.8, Eos % (Auto) 2.7, Baso % (Auto) 0.9, Absolute Neuts (auto) 3.1, Absolute Lymphs (auto) 2.90, Nucleated RBC % 0, Sodium 141, Potassium 4.1, Chloride 105, Carbon Dioxide 30.0, Anion Gap 6, BUN 9, Creatinine 0.95, Estim Creat Clear Calc 57.02, Est GFR (MDRD) Af Amer 97, Est GFR (MDRD) Non-Af 80, BUN/Creatinine Ratio 9.4 L, Glucose 127 H, Calcium 9.3, Total Bilirubin 0.60, AST 24, ALT 25, Alkaline Phosphatase 99, Total Protein 8.1, Albumin 3.7, Globulin 4.4 H, Albumin/Globulin Ratio 0.8 L, Lipase 22 10/16/23 16:45: Urine Color Yellow, Urine Clarity Sl. Cloudy, Urine pH 8.0, Ur Specific [place] 1.010, Urine Protein 15 H, Urine Glucose (UA) Normal, Urine Ketones Negative, Urine Occult Blood Negative, Urine Nitrite Negative, Urine Bilirubin Negative, Urine Urobilinogen Normal, Ur Leukocyte Esterase Negative, Urine RBC 0 SEEN, Urine WBC 0 SEEN, Ur Squamous Epith Cells 0 SEEN, Urine Bacteria 0 SEEN, Urine Mucus 0 SEEN Imaging Radiology Impression Abdomen/Pelvis CT 10/16/23 16:22 IMPRESSION: Small bowel volvulus 1. Small bowel volvulus is present with abnormal twisting of the middle one third ileum around the superior mesenteric vascular pedicle in the central abdomen which significantly edematous and engorged mesentery, reactive subcentimeter lymphadenopathy, as well as a small reactive amount of ascites. The loops pr (more content not included)... Normal [facility] Lipaseon 10-16-2023 Lipase [Catalytic activity/Vol] 22 U/L Normal 13-75 [facility] Comment on above: Result Comment: Plea se note: LIPASE revised reference range effective 22. New Lipase methodology. Expected to produce lower values than the previous assay method. NEW Reference Range: 13 - 75 U/L Performed By: #### L 500.4050, L501.2450, L100.0100 ####[facility] [address] [facility] [place], [place], [id number] MR/POSTOP.ANEon 10-16-2023 MR/POSTOP.[facility] Medical Records Department [address] [place] [address] Anesthesia Postop Eval I 10/16/232026 MR#: [id number] Acct: [id number] Name: LENAARTURO PENA Rep #: [id number] : 1940 83 From: Bean Sim MD PCP: Dr. Ritchie Fregoso MD Status:REG SDC Y Race: C Location: [place] [address] Anesthesia: Postop Eval I Current Vital Signs Temperature: 98.2 F Pulse Rate: 96 Blood Pressure: 138/69 Respiratory Rate: 16 Pulse Ox: 95 Assessment Airway patent: Yes Spontaneous unlabored respirations: Yes nausea: No Vomiting: No Anesthesia Complication: No Fluid Hydration Crystalloid volume administer (ml): 1,000 Total IV fluid infused: 1,000 Progress Note Anesthesia document: Postop Eval 1 completed: Yes 10/16/232028 Date Bean Sim MD Cosign Signature: Date CC: Signed Normal [facility] MR/CENEUATR9cv 10-16-2023 MR/POSTOPAN2 [facility] Medical Records Department [address] [place] [address] Anesthesia Postop Eval II 10/16/232028 MR#: [id number] Acct: [id number] Name: ARTURO PAREDES Rep #: [id number] : 1940 83 From: Bean Sim MD PCP: Dr. Ritchie Fregoso MD Status:REG [facility] Y Race: C Location: [place] [address] Anesthesia Postop Eval I Sum Postop Eval Completion status Anesthesia document: Postop Eval 1 completed: Yes Anesthesia Postop Eval I Summary Anesthesia Postop Eval I Summary: Anesthesia Postop Eval I: Assessment Summary Airway patent Yes 10/16/23 20:27 Spontaneous unlabored Yes 10/16/23 20:27 respirations Mental status nausea No 10/16/23 20:27 Vomiting No 10/16/23 20:27 Anesthesia Postop Eval I: Fluid Summary Crystalloid volume administer 1,000 10/16/23 20:27 (ml) Colloids volume administered ( ml) Blood Product volume administered (ml) Total IV fluid infused 1,000 10/16/23 20:27 Anesthesia Postop Eval I: Summary Notes Anesthesia Complication No 10/16/23 20:27 Anesthesia Complication Comment: Post-operative progress note Anesthesia: Postop Eval II Evaluation Mental status: Awake Pain Level: 0 nausea: No Vomiting: No 10/16/232028 Date Bean Yanceyigncassie Signature: Date CC: Signed Normal [facility] Operative Reporton 4 Operative Report [facility] Medical Records Department [address] [place] [address] Operative Report 10/16/232030 MR#: [id number] Acct: [id number] Name: ARTURO PAREDES Rep #: [id number] : 1940 83 From: Thopmson Interiano MD PCP: Dr. 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 A Lambert catheter was placed. The abdomen was prepped and draped in the usual sterile fashion. Midline incision was made superior to the umbilicus and deepened to the fascia which was elevated and incised. 12 mm port was placed into the abdomen is insufflated to 15 mmHg. Camera was placed into the abdomen. The patient was placed in Trendelenburg position and a 5 mm port was placed in the left lower quadrant as well as the suprapubic space. The abdomen was inspected. There appeared to be trace chylous ascites. There was a very small amount of actual ascites but the mesenteric border of the small bowel was all chylous. The cecum was identified and the terminal ileum was then grasped. It was collapsed. It was followed proximally until dilated bowel was found. There was no transition zone or mass or adhesion. I did not find an obvious volvulus. The mesentery appeared edematous and thick. The bowel was run once more from the distal ileum to the ligament of Treitz with no sign of obstruction. The small bowel seem to be draining well with minimal dilation. At this point there was nothing more to do surgically and the abdomen was allowed to desufflate and the ports were removed. The midline fascia was closed with [id number] 0 Vicryl suture. The incisions were injected with local anesthetic and closed with interrupted 4-0 Monocryl sutures. Steri-Strips and bandages were applied. Lambert and NG removed at the end of the case. Patient was taken to PACU in stable condition. Admit VTE Documentation VTE Mechan Device Prophylaxis: SCD's 10/16/232034 Cosigner Signature (if applicable): CC: Dr. Thompson Interiano MD; Dr. Ritchie Fregoso MD Signed Normal [facility] Urinalysis, Completeon 10-15 BACTERIA 0 SEEN Normal None Seen [facility] Comment on above: Order Comment: CLEAN CATCH Performed By: #### L [id number] ####[facility] [address] [place], [address] EPI,SQUAMOUS 0 SEEN Normal 0-5 [facility] Comment on above: Order Comment: CLEAN CATCH Performed By: #### L 400.0001 ####[facility] [address] [place], [place], [address] Mucus Ql (Urine sed) 0 SEEN Normal [facility] Comment on above: Order Comment: CLEAN CATCH Performed By: #### L 400.0001 ####[facility] [address] [place], [address] RBC 0 SEEN Normal 0-5 [facility] Comment on above: Order Comment: CLEAN CATCH Performed By: #### L [id number] ####[facility] [address] [place], [address] WBC 0 SEEN Normal 0-5 [facility] Comment on above: Order Comment: CLEAN CATCH Performed By: #### L [id number] ####[facility] [address] [place], [address] Urgent Care Visit Reporton 0 09-04-2023 Urgent Care Visit Report [facility] [address], [address] [place], [place] [address] OFFICE VISIT Date of Service: 09/04/23 MR#: [id number] Acct: [id number] Name: ARTURO PAREDES Rep #: [id number] : 1940 Provider: CORIN Neff Age/Sex: 83/M Location: [facility] Status: Signed Intake Vital Signs 12/02/22 14:14 09/04/23 13:39 Height 1.7 m 1.7 m Weight: 67.302 kg 70.76 kg BMI 23.2 24.4 BP 137/83 H 137/82 H Blood Pressure Location Lt brachial Lt brachial Position Sitting Sitting Pulse 68 66 Pulse Source Monitor Monitor Temp 98.4 F 98.3 F Temp Source Temporal Temporal Pulse Oximetry (%) 96 95 Intake Visit Reasons: LARYNGITIS Chief Complaint: congestion Allergies No Known Allergies Allergy (Verified 09/04/23 13:40) Medications ???Medication ???Instructions ???Recorded ???Confirmed ???Type amoxicillin 875 mg-potassium 1 tab PO Q12H #14 tabs 09/04/23 09/04/23 Rx clavulanate 125 mg tablet dextromethorphan-guaifenesin 20 5 ml PO Q6H PRN cough #473 mL 09/04/23 09/04/23 Rx mg-400 mg/5 mL oral liquid Have you fallen in the past year?: No [facility] Medical History (Updated 09/04/23 @ 13:50 by CORIN Worthy) Contact with and (suspected) exposure to other viral communicable diseases URI (upper respiratory infection) Surgical History H/O hernia repair Hx of tonsillectomy Family History Other Cancer Heart disease Social History Smoking Status: Never smoker alcohol intake: never HPI HPI Chief Complaint: congestion Details: ARTURO PAREDES, is a 83 M who presents to the office today for congestion. He has had this about 3 days. He has sinus congestion and pressure, ear pressure, post nasal drainage with loss of voice, productive cough. No SOB. No fever/chills. ROS Const Constitutional: No chills, fatigue or fever(s) ENT ENT: Positive for ear pressure, nasal congestion, sinus pressure, hoarseness and sore throat Resp Respiratory: Positive for cough Cough: Yes productive; No shortness of breath or wheezing Gastro GI: No diarrhea, nausea/dyspepsia or vomiting Endo Endocrine: No fatigue Aller/Imm Allergy/Immunologic: No wheezing Exam Const General: cooperative, healthy appearing, comfortable, no acute distress, well developed and well groomed Nutritional Appearance: average body habitus and well nourished Orientation: alert, awake and oriented x3 HENMT Head: normocephalic and atraumatic Ears: hearing grossly normal bilaterally, external ears normal and TM's normal bilaterally Throat: tonsils normal, uvula midline, posterior oropharynx abnormal erythema and postnasal drainage Resp Effort Inspection: normal respiratory effort, able to speak in complete sentences, symmetric chest movement and no cough Auscultation: Bilateral: Clear to Auscultation Cardio Rate: regular rate Rhythm: regular rhythm Heart Sounds: no murmurs Coding Level of Care Code Off vis,est,level 3 Diagnoses Acute sinusitis J01.90 Assessment and Plan Assessment and Plan (1) Acute sinusitis: Status: Acute Plan: acute sinusitis with laryngitis probably due to the sinus drainage. start amox/clav and tussin DM prn. follow up with PCP 1 week if no improvement. Medications: New amoxicillin-pot clavulanate 875-125 mg 1 TAB PO Q12H 14 tabs 0RF dextromethorphan-guaifenesin 20-400 mg/5 mL 5 mL PO Q6H PRN 473 mL 0RF cough Discontinued benzonatate Discontinued Reason: Order Completed 100 mg PO BID-TID PRN 15 caps 0RF cough Clinical Quality Measures Falls Risk Screening/Assistive Devices Have you fallen in the past year?: No 09/04/23 1352 Date Bj Nieves Signature: Date (if applicable) CC: Normal [facility] B. burgdorferi IgG and IgM p tyrell (S)on 07-08-2023 B. burgdorferi IgG+IgM Qn (S) Negative Normal Negative [facility] Comment on above: Order Comment: Yahaira bahena Type: BLOOD SPECIMEN Ordering Facility: [facility] Address: [address] [place] [address] Result Comment: Rece nt infection with B. burgdorferi sensu lato cannot be excluded if the specimen collected within four weeks after the onset of signs and symptoms or within six weeks after a known tick exposure. Clinical and epidemiological correlation is required. Performed By: #### 3 [id number] #### [facility] CLIA [id number] [address] [place] [address] [place] B. burgdorferi IgG and IgM p tyrell (S)on 01-10-2023 B. burgdorferi IgG+IgM Qn (S) Negative Normal Negative [facility] Comment on above: Order Comment: Yahaira bahena Type: BLOOD SPECIMEN Ordering Facility: [facility] Address: [address] [place] [address] Result Comment: Rece nt infection with B. burgdorferi sensu lato cannot be excluded if the specimen collected within four weeks after the onset of signs and symptoms or within six weeks after a known tick exposure. Clinical and epidemiological correlation is required. Performed By: #### 3 4942-3 #### [facility] CLIA [id number] [address] [place] [address] [place] Coronavirus 2018on 0 COVID 19 Source [employer]ARD [employer]OX [employer] Normal [facility] Comment on above: Result Comment: [employer] S WAB Called to and read back by: Sahra Walton MLT [facility] 12/18/19 22:31 SSandra Coronavirus 2019on 0 COVID 19 Result [employer] Abnormal Negative for COVID19 (SARS CoV2) by PCR. [facility] Comment on above: Result Comment: Posi tive for This test was developed and its performance characteristics determined by [facility] [place]. This test has been authorized by FDA under an Emergency Use Authorization (EUA). This test has been validated in accordance with the FDA's Guidance Document Policy for Diagnostics Testing in Laboratories Certified to Perform High Complexity Testing under CLIA prior to Emergency use Authorization for Coronavirus Disease 2019 during the Public Health Emergency issued on May 08, 2019. COVID19 (SARS This test was developed and its performance characteristics determined by [facility] [place]. This test has been authorized by FDA under an Emergency Use Authorization (EUA). This test has been validated in accordance with the FDA's Guidance Document Policy for Diagnostics Testing in Laboratories Certified to Perform High Complexity Testing under CLIA prior to Emergency use Authorization for Coronavirus Disease 2019 during the Public Health Emergency issued on May 08, 2019. CoV2) by This test was developed and its performance characteristics determined by [facility] [place]. This test has been authorized by FDA under an Emergency Use Authorization (EUA). This test has been validated in accordance with the FDA's Guidance Document Policy for Diagnostics Testing in Laboratories Certified to Perform High Complexity Testing under CLIA prior to Emergency use Authorization for Coronavirus Disease 2019 during the Public Health Emergency issued on May 08, 2019. PCR.(*) This test was developed and its performance characteristics determined by [facility] [place]. This test has been authorized by FDA under an Emergency Use Authorization (EUA). This test has been validated in accordance with the FDA's Guidance Document Policy for Diagnostics Testing in Laboratories Certified to Perform High Complexity Testing under CLIA prior to Emergency use Authorization for Coronavirus Disease 2019 during the Public Health Emergency issued on May 08, 2019. Clinical Summary: HMSPatient IDon 10-20-2017 SOP Invalid Interpretation Code [facility] Work Phone: Clinical Summary: Scanned Hi isabelle Summaryon 10-20-2017 Data entered by patient exercise frequency 7 days per week Invalid Interpretation Code [facility] Work Phone: Data entered by patient exercise type walking Invalid Interpretation Code [facility] Work Phone: data entered by patient, alcohol (ethanol or ETOH) use No Invalid Interpretation Code [facility] Work Phone: data entered by patient, drug (of abuse) use No Invalid Interpretation Code [facility] Work Phone: data entered by patient, Employer Name Retired Invalid Interpretation Code [facility] Work Phone: data entered by patient, exercise history No Invalid Interpretation Code [facility] Work Phone: Data entered by patient, history of past surgeries Abdominal SurgeryTonsillectomyHernia repairHeart cath Invalid Interpretation Code [facility] Work Phone: data entered by patient, mother's medical history Heart disease Invalid Interpretation Code [facility] Work Phone: data entered by patient, social history, current smoker never smoker Invalid Interpretation Code [facility] Work Phone: data entered by patient, social history, marital status Invalid Interpretation Code [facility] Work Phone: father of patient is alive or Invalid Interpretation Code [facility] Work Phone: Housing Type: apartment, house, long-term, trailer, none House Invalid Interpretation Code [facility] Work Phone: housing unit size (asthma environmental history, housing) (from single family to don't know) 1 Floor Invalid Interpretation Code [facility] Work Phone: mother of patient is alive or Invalid Interpretation Code [facility] Work Phone: Number of dependent children No Invalid Interpretation Code [facility] Work Phone: Protein mass conc Mitral valve prolapse Invalid Interpretation Code [facility] Work Phone: Clinical Summary: Scanned RO S Summaryon 10-20-2017 endocrine ROS Denies Invalid Interpretation Code [facility] Work Phone: genitourinary review of systems, E&M Complains Invalid Interpretation Code [facility] Work Phone: genitourinary system review of systems, comments Frequenent Urination Invalid Interpretation Code [facility] Work Phone: Lymphocytes Auto #/vol (Bld) Denies Invalid Interpretation Code [facility] Work Phone: Review of Systems Neurologic comment Numbness Invalid Interpretation Code [facility] Work Phone: ROS cardiovascular E&M Denies Invalid Interpretation Code [facility] Work Phone: ROS ENT comment Impaired Hearing,Berry rred Vision Invalid Interpretation Code [facility] Work Phone: ROS ENT E&M Complains Invalid Interpretation Code [facility] Work Phone: ROS gastrointestinal E&M Denies Invalid Interpretation Code [facility] Work Phone: ROS general E&M Denies Invalid Interpretation Code [facility] Work Phone: ROS Musculoskeletal comments Muscle Cramps Invalid Interpretation Code [facility] Work Phone: ROS musculoskeletal E&M Complains Invalid Interpretation Code [facility] Work Phone: ROS neurological E&M Complains Invalid Interpretation Code [facility] Work Phone: ROS Psych comment Difficulty Sleeping Invalid Interpretation Code [facility] Work Phone: ROS psychiatric E&M Complains Invalid Interpretation Code [facility] Work Phone: ROS pulmonary E&M Denies Invalid Interpretation Code [facility] Work Phone: ROS skin E&M Denies Invalid Interpretation Code [facility] Work Phone: Office Visit: New - 1st visi t with practice, Rm:on 10-20-2017 NEGATED: Highlighted rowProtein mass conc T Invalid Interpretation Code [facility] Work Phone: NEGATED: Highlighted rowProtein mass conc Done Invalid Interpretation Code [facility] Work Phone: NEGATED: Highlighted rowTobacco smoking status NHIS Tobacco smoking status NHIS Invalid Interpretation Code [facility] Work Phone: Vital Signs Date Time Vital Sign Value Performing Clinician Facility NEGATED: Highlighted [id number] 12:0400 BMI (Body Mass Index) 22.74 kg/m2 Kell Johnson VICE INVESTIGATOR [facility] Work Phone: NEGATED: Highlighted [id number] 12:27-0400 BP Diastolic 79 mm[Hg] Kell Johnson VICE INVESTIGATOR [facility] Work Phone: NEGATED: Highlighted [id number] 12:27-0400 BP Systolic 132 mm[Hg] Kell Johnson LPN [facility] Work Phone: NEGATED: Highlighted [id number] 12:27040 Height 163 cm Kell Johnson LPN [facility] Work Phone: NEGATED: Highlighted [id number] 12:27040 Height 162.56 cm Kell Johnson LPN [facility] Work Phone: NEGATED: Highlighted [id number] 12:27-0400 Pulse (Heart Rate) 56 /min Kell Johnson LPN [facility] Work Phone: NEGATED: Highlighted [id number] 12:27-0400 Weight 60 kg Kellnaren Johnson LPN [facility] Work Phone: NEGATED: Highlighted [id number] 12:270400 Weight 59.88 kg Kell Johnson LPN [facility] Work Phone: Encounters Encounter Date Encounter Type Care Provider Facility Start: 11-23-2024 ambulatory RITCHIE ANTUNEZ [facility] Start: 11-17-2024 End: 11-17-2024 Emergency department patient visit TERRELL TUBBS [facility] Start: 10-27-2024 End: 10-27-2024 ambulatory NORMA KUMAR [facility] Start: 09-22-2024 End: 09-22-2024 ambulatory RITCHIE ANTUNEZ [facility] Start: 09-22-2024 End: 10-27-2024 ambulatory MANDEEP JONAS [facility] Start: 04-14-2024 End: 04-14-2024 Evaluation and management of inpatient [facility]:[id number] Start: 04-12-2024 End: 04-14-2024 Evaluation and management of inpatient WAI BURCIAGA (JEFFREY [place] III Facility:[id number] Start: 04-12-2024 ambulatory DALE JASSO MD Facility :A Start: 04-12-2024 End: 04-12-2024 Emergency department patient visit WAI [facility] Start: 02-16-2024 End: 02-16-2024 ambulatory Roney Saini Facility:[facility] Start: 01-25-2024 End: 01-25-2024 Emergency department patient visit Nathalie Hernandez Facility:[facility] Start: 11-03-2023 End: 11-03-2023 ambulatory Thompson Claudiobriannapatty Facility:[facility] Start: 10-16-2023 ambulatory Thompson Jaydon Faci lity:[facility] Start: 10-16-2023 End: 10-20-2023 Evaluation and management of inpatient Thompson Jaydon Facility:[facility] Start: 09-04-2023 End: 09-04-2023 ambulatory Bj COOMBS Facility:[facility] Start: 10-20-2017 End: 10-20-2017 Patient encounter procedure Jonathan Joseph MD Work Phone: [facility] Work Phone: Procedures Date Procedure Procedure Detail Performing Clinician Start: 09-22-2024 Urinalysis YASSER OMR AN Comment on above: Result Comment: URIN ALYSIS Performed By: #### 2 [id number] #### [place] [id number] Start: 04-12-2024 Urinalysis YASSER OMR AN Comment on above: Result Comment: URIN ALYSIS Performed By: #### 2 [id number] #### [place] [id number] Start: 10-20-2017 End: 10-20-2017 Blood pressure within normal parameters - no follow-up required Jonathan Joseph MD Work Phone: Start: 10-20-2017 End: 10-20-2017 BMI documented within normal parameters - no follow-up plan is required Jonathan Joseph MD Work Phone: Start: 10-20-2017 End: 10-20-2017 Current medications documented Jonathan Joseph MD Work Phone: Start: 10-20-2017 End: 10-20-2017 Falls plan of care not done for unspecified reasons Jonathan Joseph MD Work Phone: Start: 10-20-2017 End: 10-20-2017 Falls risk not documented - reason not given Jonathan Joseph MD Work Phone: Start: 10-20-2017 End: 10-20-2017 Pain assessment documented as positive - follow-up documented Jonathan Joseph MD Work Phone: Start: 10-20-2017 End: 10-20-2017 Ptfalls assess-doc d ge2+/yr Jonathan Joseph MD Work Phone: Start: 10-20-2017 End: 10-20-2017 Radex hand minimum 3 views Jonathan Joseph MD Work Phone: Start: 10-20-2017 End: 10-20-2017 Tobacco non-user Jonathan Joseph MD Work Phone: Plan of Treatment Date Care Activity Detail Author Start: 10-20-2017 End: 10-20-2017 Appointment Appointment [facility] Work Phone: Immunizations Immunization Date Immunization Notes Care Provider Fa ambika No information available. Kell Johnson LPN [facility] Work Phone: Payers Date Payer Category Payer Medicare [id number] 2024 Private Health Insurance [id number] 2023 Private Health Insurance [id number] 2023 Self-pay 2007 Medicare [id number] 1940 Unknown [id number] 2.16.8 [id number] 1940 Unknown [id number] 2.16.8 40.1.702023.3.579.2.651 1940 Unknown [id number] 2.16.8 40.1.965277.3.579.2.651 1940 Unknown [id number] 2.16.8 40.1.633665.3.579.2.651 1940 Unknown [id number] 2.16.8 40.1.621825.3.579.2.651 1940 Unknown [id number] 2.16.8 40.1.042753.3.579.2.651 1940 Unknown [id number] 2.16.8 40.1.246835.3.579.2.651 Unknown [id number] 2.16.8 40.1.003819.3.579.2.462 Unknown [id number] 2.16.8 40.1.682804.3.579.2.462 Unknown [id number] 2.16.8 40.1.128350.3.579.2.462 Unknown [id number] 2.16.8 40.1.848287.3.579.2.462 Unknown [id number] 2.16.8 40.1.384797.3.579.2.462 Unknown [id number] 2.16.8 40.1.784214.3.579.2.462 Unknown [id number] 2.16.8 40.1.610704.3.579.2.462 Unknown [id number] 2.16.8 40.1.952760.3.579.2.462 Unknown [id number] 2.16.8 40.1.600217.3.579.2.462 Unknown [id number] 2.16.8 40.1.331240.3.579.2.462 Unknown [id number] 2.16.8 40.1.240363.3.579.2.462 Social History Date Type Detail Facility NEGATED: Highlighted rowStart: 10-20-2017 End: 10-20-2017 Alcohol use ETOH USE No [facility] Work Phone: NEGATED: Highlighted rowStart: 10-20-2017 End: 10-20-2017 Details of drug misuse behavior DRUG USE No [facility] Work Phone: NEGATED: Highlighted rowStart: 10-20-2017 End: 10-20-2017 Assertion Never smoker [facility] Work Phone: Progress note 04-14-2024 Note Date & Type Note Facility 04-14-2024 Note HNO ID: [id number] Author: SANYA RAMACHANDRAN MD Service: Critical Care Author Type: Physician Type: Progress Notes Filed: 04/15/2024 11:24 Note Text: Documentation Query Please clarify associated condition of pulmonary embolism {Please select the appropriate option:[id number]:: Without acute cor pulmonale, [facility] Progress note 04-14-2024 Note Date & Type Note Facility 04-14-2024 Note HNO ID: [id number] Author: HALLIE KUMAR MD Service: Hematology/Oncology Author Type: Nurse Practitioner Type: Progress Notes Filed: 04/14/2024 18:57 Note Text: Attestation signed by Hallie Kumar MD at 04/14/2024 6:57 PM Patient care discussed with my nurse practitioner in detail. Agree with her note. ONCOLOGY SERVICE PROGRESS NOTE SERVICE DATE: 04/14/2024 SERVICE TIME: 12:52 PM Subjective INTERVAL HPI: Patient laying awake in bed. He states that he is feeling better today. His breathing has improved. ECHO still pending. He remains on Heparin gtt. Discussed with Abran.KIM PHYSICAL EXAM: Vitals: Maximum temperature (last 24 hours): Temp (24hrs), Av.4 ?C (97.6 ?F), Min:36.3 ?C (97.3 ?F), Max:36.8 ?C (98.3 ?F) BP 121/54 Pulse 72 Temp 36.4 ?C (97.5 ?F) (Oral) Resp 19 Ht 170.2 cm (5' 7) Wt 72 kg (158 lb 11.7 oz) SpO2 97% BMI 24.86 kg/m? General: Patient is awake, alert, and oriented. No acute respiratory distress. Elderly HEENT: Supple without palpable lymphadenopathy Lungs: Diminished in the bases bilaterally. Cardiac: Regular rhythm and rate, S1-S2 within normal limits, +murmur Abdomen: Soft, nontender, nondistended, bowel sounds are positive, no hepatosplenomegaly palpated. Extremities: Edema BLE Skin: No rashes or breakdown. Lymphatic: No palpable peripheral lymphadenopathy. Neurologic: Cranial nerves from II-XII intact grossly. Psychiatry: Normal affect. DATA: Diagnostic tests reviewed for today's visit: Recent Labs 04/14/24 0237 04/13/24 0617 04/12/24 2305 WBC 6.86 7.91 9.54 HB 11.9* 12.6* 13.7 HCT 35.2* 37.0* 41.4 MCV 91.4 91.1 91.4 PLT 312 323 362 CREAT -- 0.74 0.79 CA -- 8.9 9.2 INR -- -- 1.1 Assessment/Plan 84-year-old gentleman with bilateral PE and LLE DVT possibly provoked by his ongoing medical issues and illnesses since January 2024. He was having sedentary lifestyle secondary to the same. From our standpoint, I do not believe hypercoagulable workup will change our management. We recommend at least 6 months of anticoagulation with DOAC after which we will discuss with him about cessation vs long-term anticoagulation with prophylactic dose depending on how he is doing clinically at that time. Continue heparin gtt and transition to DOAC with loading dose at [place]. Will arrange for outpatient follow up with in our [place] office in a few weeks. Above plan of care reviewed with Dr. Kumar and he agrees. SIGNATURE: Emily Witt APRN.CNP PATIENT NAME: Arturo Paredes DATE: April 14, 2024 TIME: 12:52 PM [facility] Progress note 04-14-2024 Note Date & Type Note Facility 04-14-2024 Note HNO ID: [id number] Author: SANDRA HOWELL DO Service: Hospital Medicine Author Type: Physician Type: Progress Notes Filed: 04/14/2024 11:06 Note Text: PROGRESS NOTE SERVICE DATE: 04/14/2024 SERVICE TIME: 11:05 AM PRIMARY SERVICE: Internal Medicine CHIEF COMPLAINT: Shortness of breath, chest/shoulder pain INTERVAL HPI: Patient seen and examined, discussed with house staff and RN. No significant overnight issues. BP 125/59 Pulse 74 Temp (Src) 97.3 (Oral) Resp 16 Ht 5' 7 (1.70m) Wt 158 lb 11.7 oz (72.0kg) SpO2 98% BMI 24.85 kg/(m2). O2 Therapy: Nasal Cannula, Liters: 1.0 PHYSICAL EXAM: General: alert and oriented x3, resting comfortably, on 1 L of nasal cannula Neck: supple, no hepatojugular reflux or jugular venous distention, no carotid bruits Lungs: clear to auscultation bilaterally, no wheezing, rales, or rhonchi Cardiac: regular rate and rhythm, normal S1 and S2, no murmurs, gallops, or rubs Abdomen: soft, nontender, nondistended, bowel sounds present Extremities: no edema, cyanosis, or clubbing Skin: no rashes or breakdown Lymphatic: no cervical or supraclavicular lymphadenopathy Neurologic: cranial nerves II-XII are grossly intact Psychiatry: normal affect, no hallucinations, no suicidal ideation Current Facility-Administered Medications Medication Dose Route Frequency heparin iv infusion 25,000 units in NaCl 0.45% 250 mL STANDARD NOMOGRAM 0-3,000 Units/hr INTRAVENOUS CONTINUOUS And heparin RATE CHANGE bolus 1,000-10,000 Units for subtherapeutic PTTAC results 1,000-10,000 Units INTRAVENOUS PRN sodium chloride 0.9 % (flush) 2-10 mL (BD POSIFLUSH) 2-10 mL INTRAVENOUS DIRECTED PRN And perflutren lipid microspheres 1.1 mg/mL 1.3 mL injection (DEFINITY) 1.3 mL INTRAVENOUS DIRECTED PRN acetaminophen 650 mg tab(s) (TYLENOL) 650 mg ORAL q 6 H PRN HYDROcodone 5 mg - acetaminophen 325 mg tablet (NORCO) 1 tablet ORAL q 6 H PRN morphine 1 mg injection 1 mg INTRAVENOUS q 4 H PRN NaCl 0.9% iv flush bag 20 mL INTRAVENOUS PRN ondansetron 4 mg tab(s) (ZOFRAN) 4 mg ORAL q 6 H PRN Or ondansetron (PF) 4 mg injection (ZOFRAN) 4 mg INTRAVENOUS q 6 H PRN keTORolac 15 mg injection (Toradol) 15 mg INTRAVENOUS q 6 H PRN DATA: WBC (k/uL) Date Value 04/14/2024 6.86 RBC (m/uL) Date Value 04/14/2024 3.85 (L) Hemoglobin (g/dL) Date Value 04/14/2024 11.9 (L) Hematocrit (%) Date Value 04/14/2024 35.2 (L) MCV (fL) Date Value 04/14/2024 91.4 MCH (pg) Date Value 04/14/2024 30.9 MCHC (g/dL) Date Value 04/14/2024 33.8 RDW-CV (%) Date Value 04/14/2024 13.3 Platelet Count (k/uL) Date Value 04/14/2024 312 MPV (fL) Date Value 04/14/2024 8.4 (L) Glucose (mg/dL) Date Value 04/13/2024 105 (H) BUN (mg/dL) Date Value 04/13/2024 9 Creatinine (mg/dL) Date Value 04/13/2024 0.74 Sodium (mmol/L) Date Value 04/13/2024 137 Potassium (mmol/L) Date Value 04/13/2024 5.0 Chloride (mmol/L) Date Value 04/13/2024 102 CO2 (mmol/L) Date Value 04/13/2024 32 Calcium, Total (mg/dL) Date Value 04/13/2024 8.9 ASSESSMENT AND PLAN: Acute hypoxic respiratory failure Bilateral pulmonary emboli ?Right heart strain [facility] with shortness of breath and chest/shoulder pain He was found to be hypoxic on arrival CT angiogram showed evidence of bilateral pulmonary emboli and possible right heart strain Patient transferred here to [facility] Pulmonology and hematology are following Continue heparin drip, plan will likely be to transition to DOAC on discharge for at least 6 months of treatment Echocardiogram remains pending to evaluate for right heart strain Patient's daughter has factor V Leiden, however per hematology hypercoagulable workup will be deferred as they do not believe that it would pattern changer Weaning supplemental oxygen as tolerated (presently on 1 L of nasal cannula) Continue PRN Toradol for pleuritic chest pain Left lower extremity DVT Seen on Doppler ultrasound obtained yesterday Treating as outlined above Chronic comorbidities Hypertension SIGNATURE: Sandra Howell DO PATIENT NAME: Arturo Paredes DATE: April 14, 2024 TIME: 11:05 AM [facility] Plan of care note 04-14-2024 Note Date & Type Note Facility 04-14-2024 Note HNO ID: [id number] Author: BEKA LOPEZ APRN.EXHAUST WORKER Service: Pulmonary Disease Author Type: Nurse Practitioner Type: Plan of Care Filed: 04/14/2024 08:15 Note Text: Given no need for EKOS and Hematology following/managing anticoagulation, Pulmonary service will sign off at this time. Recommend repeat CXR either today or tomorrow to evaluate for pleural effusion given pleuritic chest pain. Please call with questions. [facility] Progress note 04-13-2024 Note Date & Type Note Facility 04-13-2024 Note HNO ID: [id number] Author: SANDRA HOWELL DO Service: Hospital Medicine Author Type: Physician Type: Progress Notes Filed: 04/13/2024 19:21 Note Text: PROGRESS NOTE SERVICE DATE: 04/13/2024 SERVICE TIME: 7:16 PM PRIMARY SERVICE: Internal Medicine CHIEF COMPLAINT: Shortness of breath, chest/shoulder pain INTERVAL HPI: Patient seen and examined, discussed with house staff and RN. No significant overnight issues. BP 121/67 Pulse 63 Temp (Src) 97.4 (Oral) Resp 18 Ht 5' 7 (1.70m) Wt 158 lb 11.7 oz (72.0kg) SpO2 97% BMI 24.85 kg/(m2). O2 Therapy: Nasal Cannula, Liters: 3 PHYSICAL EXAM: General: alert and oriented x3, resting comfortably, on 3 L of nasal cannula Neck: supple, no hepatojugular reflux or jugular venous distention, no carotid bruits Lungs: clear to auscultation bilaterally, no wheezing, rales, or rhonchi Cardiac: regular rate and rhythm, normal S1 and S2, no murmurs, gallops, or rubs Abdomen: soft, nontender, nondistended, bowel sounds present Extremities: no edema, cyanosis, or clubbing Skin: no rashes or breakdown Lymphatic: no cervical or supraclavicular lymphadenopathy Neurologic: cranial nerves II-XII are grossly intact Psychiatry: normal affect, no hallucinations, no suicidal ideation Current Facility-Administered Medications Medication Dose Route Frequency heparin iv infusion 25,000 units in NaCl 0.45% 250 mL STANDARD NOMOGRAM 0-3,000 Units/hr INTRAVENOUS CONTINUOUS And heparin RATE CHANGE bolus 1,000-10,000 Units for subtherapeutic PTTAC results 1,000-10,000 Units INTRAVENOUS PRN sodium chloride 0.9 % (flush) 2-10 mL (BD POSIFLUSH) 2-10 mL INTRAVENOUS DIRECTED PRN And perflutren lipid microspheres 1.1 mg/mL 1.3 mL injection (DEFINITY) 1.3 mL INTRAVENOUS DIRECTED PRN acetaminophen 650 mg tab(s) (TYLENOL) 650 mg ORAL q 6 H PRN HYDROcodone 5 mg - acetaminophen 325 mg tablet (NORCO) 1 tablet ORAL q 6 H PRN morphine 1 mg injection 1 mg INTRAVENOUS q 4 H PRN NaCl 0.9% iv flush bag 20 mL INTRAVENOUS PRN ondansetron 4 mg tab(s) (ZOFRAN) 4 mg ORAL q 6 H PRN Or ondansetron (PF) 4 mg injection (ZOFRAN) 4 mg INTRAVENOUS q 6 H PRN keTORolac 15 mg injection (Toradol) 15 mg INTRAVENOUS q 6 H PRN DATA: WBC (k/uL) Date Value 04/13/2024 7.91 RBC (m/uL) Date Value 04/13/2024 4.06 (L) Hemoglobin (g/dL) Date Value 04/13/2024 12.6 (L) Hematocrit (%) Date Value 04/13/2024 37.0 (L) MCV (fL) Date Value 04/13/2024 91.1 MCH (pg) Date Value 04/13/2024 31.0 MCHC (g/dL) Date Value 04/13/2024 34.1 RDW-CV (%) Date Value 04/13/2024 13.2 Platelet Count (k/uL) Date Value 04/13/2024 323 MPV (fL) Date Value 04/13/2024 8.3 (L) Glucose (mg/dL) Date Value 04/13/2024 105 (H) BUN (mg/dL) Date Value 04/13/2024 9 Creatinine (mg/dL) Date Value 04/13/2024 0.74 Sodium (mmol/L) Date Value 04/13/2024 137 Potassium (mmol/L) Date Value 04/13/2024 5.0 Chloride (mmol/L) Date Value 04/13/2024 102 CO2 (mmol/L) Date Value 04/13/2024 32 Calcium, Total (mg/dL) Date Value 04/13/2024 8.9 ASSESSMENT AND PLAN: Acute hypoxic respiratory failure Bilateral pulmonary emboli ?Right heart strain Patient presented to the [facility] ED with shortness of breath and chest/shoulder pain He was found to be hypoxic on arrival CT angiogram showed evidence of bilateral pulmonary emboli and possible right heart strain Patient transferred here to [facility] Pulmonology and hematology are following Continue heparin drip, plan will likely be to transition to DOAC on discharge for at least 6 months of treatment Echocardiogram remains pending to evaluate for right heart strain Patient's daughter has factor V Leiden, however per hematology hypercoagulable workup will be deferred as he does not believe that it would pattern changer Weaning supplemental oxygen as tolerated (presently on 3 L of nasal cannula) Left lower extremity DVT Seen on Doppler ultrasound obtained today Treating as outlined above Chronic comorbidities Hypertension SIGNATURE: Sandra Howell DO PATIENT NAME: Arturo Paredes DATE: April 13, 2024 TIME: 7:16 PM [facility] Clinical Note 04-13-2024 Note Date & Type Note Facility 04-13-2024 Note HNO ID: [id number] Author: RHODA TOPETE RN Service: Care Management Author Type: Registered Nurse Type: Care Mgt Initial Assessment Filed: 04/13/2024 12:51 Note Text: CARE MANAGEMENT: ASSESSMENT AND DISCHARGE PLAN SERVICE DATE: April 13, 2024 SERVICE TIME: 12:44 PM PCP: Ritchie Fregoso MD, saw 04/09/24 Primary Contact: Extended Emergency Contact Information Primary Emergency Contact: Allyson García Mobile Relation: Daughter Secondary Emergency Contact: Stella Chen Mobile Relation: Daughter Admission Status: Inpatient Insurance Provider: [employer] MEDICARE PPO Discharge Planning requested by: Per Department Practice Potential Transition Plans No Services Indicated;Home Advance Directives Current Advance Directive: Health Care Power of Tank Wagon Driver Current Living Arrangements and Support Lives with: Children Type of Residence: Private Residence (House) Does the patient have to climb stairs at home?: Yes;stairs outside the home;stairs within the home Support: Family members, Children How do you manage to accomplish the following: Independent: Ambulation;Transportation to appointments/community;Bathe/Shower;Dress;Meals /Meal Prep;Going to the bathroom;Medication Management Current Services/Equipment Current Post-Acute Service(s): None Discharge Planning Patient Goal(s): Be able to go home, General wellness, Wean off of O2 [place] of Choice Explained: [place] of Choice Given: No Reason Not Given: No placements necessary Are you interested in bedside delivery of your medications? No Discharge Planning Participant(s): Patient Patient/Family Comments: Caregiver Assessment: Caregiver is ready, willing and able to meet the patient's needs as recommended by the inter-professional team: No Caregiver needed Transport at Discharge: Transportation Arrangements: Car Destination: Home Needs Prior to Discharge: Post-Acute Discharge Plan: Intimate Partner Violence We have begun to talk to patients about safe and healthy relationships because it can have a large impact on your health. Do you feel safe around your partner or ex-partner?: Yes Food Insecurity Within the past 12 months, you worried that your food would run out before you got the money to buy more.: Never true Within the past 12 months, the food you bought just didn't last and you didn't have money to get more.: Never true Transportation Needs In the past 12 months, has lack of transportation kept you from medical appointments or from getting medications?: No In the past 12 months, has lack of transportation kept you from meetings, work, or from getting things needed for daily living?: No Housing Stability In the last 12 months, was there a time when you were not able to pay the mortgage or rent on time?: No In the past 12 months, how many times have you moved where you were living?: 0 At any time in the past 12 months, were you homeless or living in a long-term (including now)?: No Utilities In the past 12 months has the [employer], gas, oil, or water [employer] threatened to shut off services in your home?: No Social Information Financial Resources: Retired CHART REVIEWED: Admission as a transfer from [facility] with chest pain, sob, weakness. Patient underwentCTA which noted bilateral PE with heart strain. Lives at home with daughter, Afsaneh, his a year ago. He is independent, drives, denies any DME or services. Will have transportation home. No needs at this time. Will continue to follow. PCP: Ritchie Fregoso MD, saw 04/09/24 Discharge plan to return to home with family. Will have transportation. SIGNATURE: Rhoda Topete RN PATIENT NAME: Arturo Paredes DATE: April 13, 2024 TIME: 12:43 PM [facility] Clinical Note 04-12-2024 Note Date & Type Note Facility 04-12-2024 Note SARS-COV-2 (AGENT OF COVID-19) RNA: Not detected INFLUENZA A RNA: Not detected INFLUENZA B RNA: Not detected RESPIRATORY SYNCYTIAL VIRUS (RSV) RNA: Not detected [facility] Comment on above: Performed By: #### 9 [id number] #### [facility] CLIA [id number] [facility] [place] [address] [place] Clinical Note 04-12-2024 Note Date & Type Note Facility 04-12-2024 Note Discharge Instructio ns Discharge Summary [address] [address] [id number] 04/12/2024 Patient: ARTURO PAREDES Sex: Male : 1940 Age: 84y Thank you for visiting [facility]. You have been evaluated today by Wai Oh D.O. for the following condition(s): Principal Diagnosis Acute nontraumatic pain. Acute dyspnea. Acute pulmonary embolism with acute cor pulmonale. 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 [address] [phone] 04/12/2024 Patient: ARTURO PAREDES Sex: Male : 1940 Age: 84y Thank you for visiting [facility]. You have been evaluated today by Wai Oh D.O. for the following condition(s): 1 of 2 Discharge Instructions Principal Diagnosis Acute nontraumatic pain. Acute dyspnea. Acute pulmonary embolism with acute cor pulmonale. 2 of 2 [facility] Discharge summary note 10-20-2023 Note Date & Type Note Facility 10-20-2023 Note [facility] Medical Records Department [address] [place] [id number] Discharge Summary 10/20/23 1302 MR#: [id number] Acct: [id number] Name: ARTURO PAREDES Rep #: [id number] : 1940 83 From: Thompson Interiano MD PCP: Dr. Ritchie Fregoso MD Status:ADM IN Location: [facility] BT151-2 Providers Date of Admission: 10/16/23 Primary Care Physician: Dr. Ritchie Fregoso MD Reason For Visit: SMALL BOWEL OBSTRUCTION Diagnosis Discharge Diagnosis (1) Small bowel volvulus: Status: Acute Code(s): K56.2 - Volvulus Plan: Patient doing well and tolerating diet. I ordered a CT scan yesterday for bloating which was normal in terms of bowel but there was some possible thickening of the gallbladder. Patient reports he has chronic gallbladder problems. As long as the patient tolerates a diet today I will discharge him home and he will follow-up with me and we will discuss elective cholecystectomy. Thompson Interiano MD Pager: [facility] [address] [place] [address], [address] [place] [address] Office: Medications at Discharge Home Medications acetaminophen 325 mg tablet 650 mg (2 x 325 mg) PO Q4H PRN PRN Pain 1-10 Or Fever #0 tabs 10/20/23 tamsulosin 0.4 mg capsule 0.4 mg PO DAILY@1730 #7 caps 10/20/23 Hospital Course Summary of Care Provided Hospital Course: The patient was admitted with possible small bowel volvulus. He was immediately taken for surgery. What was found was a scant amount of chylous ascites but no obvious volvulus or adhesions or internal hernia. The bowel was run twice and there were no adhesions or which was noted. The patient was taken back to the floor after surgery. He had postoperative ileus and when it this resolved and he started tolerating clears advance him to regular diet. He also had urinary tension requiring a Lambert catheter. Today this was removed and he had a normal voiding trial. He was started on Flomax as well here. Weight / BMI Weight Weight: 155 lb 6.814 oz Body Mass Index (BMI) 24.3 ABG / Lab / Microbiology Data 10/18/23 07:00 10/18/23 07:00 Radiography Diagnostic Testing: Radiology Impression Abdomen/Pelvis CT 10/19/23 09:36 IMPRESSION: No small bowel obstruction. Few foci of intraperitoneal air consistent with recent surgical intervention. Mild gallbladder wall thickening associated with gallstones and/or sludge, consider right upper quadrant ultrasound for further evaluation. Small bilateral pleural effusions associated with minimal lower lobe dependent consolidation. Enlarged prostate gland. Atherosclerosis. Electronically Signed: Thuy Stiles MD at 15:53 EDT , D/C Instructions Discharge Diet: Light diet - advance as tolerated Discharge Activity: May Shower Lifting Restrictions: 20 lbs for 2 weeks Call your doctor if your incision/area has: Continuous Slow Oozing, Sudden Increased Bleeding, Increased Pain/ Swelling, Increased Redness, Foul Smelling Discharge and Swelling at the incision site Call your doctor if you observe: Fever of 101 or Higher and Inability to have a bowel movement Remove Dressing in: 1 day (Remove steri strips in 10 days) Cleanse incision/area with: Soap Water Please Follow Up With: Thompson Interiano MD When: Please call to schedule 1-2 week follow up appointment. [phone] Meaningful Use Info Meaningful Use Meaningful Use Diagnoses (Choose all that apply): None applicable Ischemic Stroke Statin Dosing Therapy Reference: STATIN DOSE THERAPY REFERENCE: * Patients > 75 years receive moderate or high dose statin therapy. * Patients 75 years or YOUNGER should receive HIGH intensity statin dose unless contraindicated. You will be required to document reason for non-treatment if statin daily dose does not meet guidelines. HIGH DOSE STATIN THERAPY DAILY Atorvastatin > than or = to 40 mg Rosuvastatin > than or = to 20 mg Amlodipine + Atorvastatin > than or = to 2.5/40 mg Ezetimibe + Simvastatin 10/80 mg Simvastatin 80mg Discharge Plan Admission Admit Date/Time: 10/16/23 18:32 Attending Provider: Thompson Interiano Primary Care Provider: Ritchie Fregoso Discharge Orders/Prescriptions Prescriptions: New acetaminophen 325 mg Tablet 650 mg PO Q4H PRN PRN (Reason: Pain 1-10 Or Fever) Qty: 0 0RF tamsulosin 0.4 mg Capsule 0.4 mg PO DAILY@1730 Qty: 7 0RF Referrals / Follow Up: Ritchie Fregoso MD [Primary Care Provider] - Disposition Disposition (needs filled in before D/C Order can be placed): Home, Self Care 10/20/23 1305 Cosigner Signature (if applicable): CC: Dr. Badillo (more content not included)... [facility] Instructions Instruction Description Start Date Completed Advance Directives There may be information available, but it has not been provided by the sender. No Advanced Directives Records FoundNo Advanced Directives Records FoundNo Advanced Directives Records FoundNo Advanced Directives Records FoundNo Advanced Directives Records FoundNo Advanced Directives Records Found Assessments There may be information available, but it has not been provided by the sender. Review of System There may be information available, but it has not been provided by the sender. Family History There may be information available, but it has not been provided by the sender.No Family History Records FoundNo Family History Records FoundNo Family History Records FoundNo Family History Records FoundNo Family History Records FoundNo Family History Records Found Summary Purpose Additional Source Comments (unrecognized sect ion and content) No Status Records FoundNo Status Records FoundNo Status Records FoundNo Status Records FoundNo Status Records FoundNo Status Records Found INFORMATION SOURCE (unrecogn ized section and content) DATE CREATED AUTHOR 12/18/2019 [facility] DATE CREATED AUTHOR AUTHOR'S ORGANIZ ATION 07/11/2023 [facility] DATE CREATED AUTHOR AUTHOR'S ORGANIZ ATION 02/26/2024 [facility] DATE CREATED AUTHOR AUTHOR'S ORGANIZ ATION 04/14/2024 [facility] DATE CREATED AUTHOR AUTHOR'S ORGANIZ ATION 05/03/2024 [facility] DATE CREATED AUTHOR AUTHOR'S ORGANIZ ATION 11/24/2024 [facility] FOR RECORDS PERTAINING TO PATIENTS WHO ARE OR HAVE BEEN ENROLLED IN A CHEMICAL DEPENDENCY/SUBSTANCEABUSE PROGRAM, SOME INFORMATION MAY BE OMITTED. This clinical summary was aggregated from multiple sources. Caution should be exercised in using it in the provision of clinical care. This summary normalizes information from multiple sources, and as a consequence, information in this document may materially change the coding, format and clinical context of patient data. In addition, data may be omitted in some cases. CLINICAL DECISIONS SHOULD BE BASED ON THE PRIMARY CLINICAL RECORDS. [facility] [employer] provides no warranty or guarantee of the accuracy or completeness of information in this document.
[2025-02-17 20:13] VITALS: BP 140/77; PULSE 71; RESP 11; O2SAT 96
[2025-02-17 20:41] LABS: AST(SGOT) 27 U/L (<=37); Alanine Aminotransfer ALT/SGPT 23 U/L (<=46); Albumin, Serum 4.2 g/dL (3.4-4.8); Alkaline Phosphatase 81 U/L (40-129); Anion Gap 11 (5-15); BUN 17 mg/dL (4-19); BUN/Creat Ratio 19.1 RATIO (10-20); Calcium,Total 9.7 mg/dL (7.6-11.0); Carbon Dioxide 24.8 mmol/L (21.0-32.0); Chloride 101 mmol/L (98-108); Estimated Creatinine Clearance 61.20 ml/min (50-250); Globulin 3.6 g/dL (2.2-4.2); Glucose 87 mg/dL (70-99); Magnesium 2.6 mg/dL (1.5-2.2); Potassium 4.2 mmol/L (3.3-5.1); Pro- Brain NATRIURETIC PEPTIDE 148 pg/mL (<=1800); Troponin T High Sensitivity 7 ng/L (<=22)
[2025-02-17 21:00] VITALS: BP 144/91; PULSE 66; RESP 18; O2SAT 97
[2025-02-17 22:52] LABS: Troponin T High Sens 2 HR 7 ng/L (<=22)
--- NOTE | 2025-02-17 23:17 | EKG12_ITS ---
Test Reason : REPEAT EKG Blood Pressure : */* mmHG Vent. Rate : 73 BPM Atrial Rate : 73 BPM P-R Int : 276 ms QRS Dur : 98 ms QT Int : 440 ms P-R-T Axes : 81 -50 63 degrees QTcB Int : 484 ms Sinus rhythm with sinus arrhythmia with 1st degree A-V block Incomplete right bundle branch block Left anterior fascicular block QTcB >= 480 msec Abnormal ECG Confirmed by ARPIT ANTUNEZ, NORMA ([id number]), mapping editor CINDI BURDEN ([id number]) on 02/21/2025 6:31:52 AM Referred By: ER Confirmed By: NORMA MUNSON MD
[2025-02-18] VITALS: BP 140/78; PULSE 73; RESP 18; O2SAT 97
== END 2025-02-18 00:25 | disposition home or self-care (01) ==
PROVIDERS: Emergency Provider Student in an Organized Health Care Education/Training Program; PCP Internal Medicine Infectious Disease; Visit Provider Student in an Organized Health Care Education/Training Program
DX: I49.8 Other specified cardiac arrhythmias (principal); R06.02 Shortness of breath; R53.83 Other fatigue
CPT/HCPCS: 71046; 74176; 80053; 83735; 83880; 84443; 84484; 85025; 93005; 99284; A4216